=== PATIENT | female | born 1995 | race Caucasian/White ===

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

== ENCOUNTER 2018-01-25 19:52 | Emergency (ER) | payer MEDICAID ==
[~2018-01-25] VITALS: Ht 162.6 cm; Wt 52.2 kg
[~2018-01-25 19:52] MED LIST changes: +ACHD5005 PO; +DOCU100C37 PO; -HYDR-3812 PO; +IBUP-1773 PO
--- OUTSIDE RECORDS SUMMARY | 2018-01-25 19:58 | XMS REPORT ---
Author Author JOSE GARCIA [facility] Address [address] [place] [address] Care Team Providers Care Clean Up Supervisor Name Role Phone JOSE GARCIA Unavailable PROBLEMS Type Condition ICD9-CM Code [id number] Code Onset Dates Condition Status SNOMED Code Problem Generalized anxiety disorder F41.1 Active 485087330 Problem Intermittent explosive disorder F63.81 Active 92960194 Problem Adjustment disorder with disturbance of emotion F43.29 Active 19297033 Problem Affective disorder F39 Active 32038676 Problem Mild intermittent asthma without complication J45.20 Active 792082444 Problem Personality disorder F60.9 Active 17873794 Problem Anxiety disorder, unspecified type F41.9 Active 547296372 ALLERGIES No Information SOCIAL HISTORY Never Assessed PLAN OF CARE VITAL SIGNS MEDICATIONS Unknown Medications RESULTS No Results PROCEDURES No Known procedures IMMUNIZATIONS No Known Immunizations MEDICAL (GENERAL) HISTORY Type Description Date Medical History Anxiety Medical History Asthma Medical History Depression Medical History Bipolar Disorder Surgical History mole removal from back Surgical History cyst removal from face Surgical History 10/2016 Hospitalization History OB monitoring 09/2015 Hospitalization History Child 10/2016
--- OUTSIDE RECORDS SUMMARY | 2018-01-25 19:58 | XMS REPORT ---
Author Author RADHAJOSE WHITE Organization [facility] [place] Address [address] [place] [address] Care Team Providers Care Enrollment Processor Name Role Phone JOSE GARCIA Unavailable PROBLEMS Type Condition ICD9-CM Code [id number] Code Onset Dates Condition Status SNOMED Code Problem Generalized anxiety disorder F41.1 Active 213919051 Problem Intermittent explosive disorder F63.81 Active 69852566 Problem Adjustment disorder with disturbance of emotion F43.29 Active 35565610 Problem Affective disorder F39 Active 33905836 Problem Mild intermittent asthma without complication J45.20 Active 238803260 Problem Personality disorder F60.9 Active 97664887 Problem Anxiety disorder, unspecified type F41.9 Active 843669649 ALLERGIES Unknown Allergies SOCIAL HISTORY No smoking Hx information available PLAN OF CARE Activity Details Follow Up 2 Weeks, 2 Weeks Reason: VITAL SIGNS Height 65.7 in 2016-10-07 Weight 148.0 lbs 2016-10-07 Temperature 97.6 degrees Fahrenheit 2016-10-07 Heart Rate 80 bpm 2016-10-07 Respiratory Rate 18 2016-10-07 BMI 24.106 kg/m2 2016-10-07 Blood pressure systolic 120 mmHg 2016-10-07 Blood pressure diastolic 78 mmHg 2016-10-07 MEDICATIONS Medication Instructions Dosage Frequency Start Date End Date Duration Status 28-0.8 MG Active Acyclovir 200 mg Orally daily prn breakout 1 capsule Active RESULTS Name Result Date Reference Range UA OB DIP (IN HOUSE) 2016-10-07 Glucose negative Protein negative CULTURE, GENITAL 2016-10-07 Genital Culture, Routine Final report Result 1 PROCEDURES Procedure Date Ordered Related Diagnosis Body Site NON-STRESS TEST 2016-10-07 N/A URINE-NO MICRO Oct 07, 2016 Office Visit, Est Pt., Level 3 Oct 07, 2016 LAB NOT BILLED BY [facility] Oct 07, 2016 NON-STRESS TEST Oct 07, 2016 IMMUNIZATIONS No Known Immunizations
--- OUTSIDE RECORDS SUMMARY | 2018-01-25 19:58 | XMS REPORT ---
Author Author JOY OCONNOR Organization [employer] Address Unknown Phone Unavailable Care Team Providers Care Division Manager Name Role Phone JOY OCONNOR CP Unavailable Allergies No Known Allergies Problems Problem Type Condition ICD-9 Code Onset Dates Condition Status Problem Anxiety state, unspecified 300.00 Active Problem Generalized anxiety disorder 300.02 Active Problem Encounter for surveillance of injectable contraceptive V25.49 Active Problem Adjustment disorder with depressed mood 309.0 Active Assessment Encounter for Depo-Provera contraception V25.49 Active Problem Bipolar disorder, unspecified 296.80 Active Problem Bipolar I disorder, most recent episode (or current) mixed, moderate 296.62 Active Medications No Known Medications Procedures Procedure Coding System Code Date DEPO PROVERA (150 MG/ML) CPT-4 J1050 May 15, 2015 THER/PROPH/DIAG INJ, SC/IM CPT-4 05041 May 15, 2015 URINE TEST CPT-4 06005 May 15, 2015 Results Name Result Date Reference Range Unit Abnormality Flag TEST, URINE (IN HOUSE) Summary Purpose eClinicalWorks Submission
--- OUTSIDE RECORDS SUMMARY | 2018-01-25 19:58 | XMS REPORT ---
Author Author NUVIA OSORIO Organization [employer] Address Unknown Phone Unavailable Care Team Providers Care Shaping Machine Operator Name Role Phone NUVIA OSORIO CP Unavailable Allergies No Known Allergies Problems Problem Type Condition Code Onset Dates Condition Status Problem Generalized anxiety disorder F41.1 Active Problem Bipolar disorder, unspecified F31.9 Active Problem Anxiety state, unspecified F41.1 Active Problem Surveillance of contraceptive injection Z30.42 Active Problem Bipolar mixed affective disorder, moderate F31.62 Active Problem Adjustment disorder with depressed mood F43.21 Active Medications Medication Code System Code Instructions Start Date End Date Status Dosage Alprazolam [facility] [id number] 0.5 MG TAKE ONE TABLET BY MOUTH TWICE DAILY NEEDED Results No Known Results Summary Purpose eClinicalWorks Submission
--- OUTSIDE RECORDS SUMMARY | 2018-01-25 19:58 | XMS REPORT ---
Author Author VICKI PANIAGUA Organization [facility] Address [address] [place] [address] Care Team Providers Care Data Entry Coordinator Name Role Phone VICKI PANIAGUA Unavailable PROBLEMS Type Condition ICD9-CM Code [id number] Code Onset Dates Condition Status SNOMED Code Problem Generalized anxiety disorder F41.1 Active 601897658 Problem Intermittent explosive disorder F63.81 Active 34763739 Problem Adjustment disorder with disturbance of emotion F43.29 Active 74938243 Problem Affective disorder F39 Active 69999962 Problem Mild intermittent asthma without complication J45.20 Active 572026332 Problem Personality disorder F60.9 Active 22139383 Problem Anxiety disorder, unspecified type F41.9 Active 527665779 ALLERGIES No Information SOCIAL HISTORY Never Assessed PLAN OF CARE Activity Details Follow Up 1 Week Reason:depression and anxiety VITAL SIGNS MEDICATIONS Unknown Medications RESULTS No Results PROCEDURES Procedure Date Ordered Result Body Site Psychotherapy, patient &/family, 45 minutes, established patient February 24, 2017 IMMUNIZATIONS No Known Immunizations MEDICAL (GENERAL) HISTORY Type Description Date Medical History Anxiety Medical History Asthma Medical History Depression Medical History Bipolar Disorder Surgical History mole removal from back Surgical History cyst removal from face Surgical History 10/2016 Hospitalization History OB monitoring 09/2015 Hospitalization History Child 10/2016
--- OUTSIDE RECORDS SUMMARY | 2018-01-25 19:58 | XMS REPORT ---
Author Author CINDY LEVIN Organization [employer] Address Unknown Phone Unavailable Care Team Providers Care Medical Technologist Name Role Phone CINDY LEVIN CP Unavailable Allergies, Adverse Reactions, Alerts Substance Reaction Event Type N.K.D.A. Info Not Available Non Drug Allergy Problems Problem Type Condition Code Onset Dates Condition Status Problem Generalized anxiety disorder F41.1 Active Problem Bipolar disorder, unspecified F31.9 Active Problem Anxiety state, unspecified F41.1 Active Problem Surveillance of contraceptive injection Z30.42 Active Assessment Pelvic lymphadenopathy R59.0 Active Problem Bipolar mixed affective disorder, moderate F31.62 Active Problem Adjustment disorder with depressed mood F43.21 Active Medications Medication Code System Code Instructions Start Date End Date Status Dosage Albuterol Sulfate [facility] [address]-45 90 mcg/actuation Jun 29, 2013 inhale 2 puffs by inhalation route every 6 hours PRN cough or wheezing Doxycycline Hyclate [facility] [address]-31 100 MG Orally every 12 hrs January 21, 2016 January 28, 2016 1 capsule Sprintec 28 [facility] [address]-48 0.25-35 MG-MCG Orally Once a day Oct 02, 2015 1 tablet Procedures Procedure Coding System Code Date Office Visit, Est Pt., Level 3 CPT-4 66671 January 21, 2016 URINE TEST CPT-4 16604 January 21, 2016 Vital Signs Date/Time: January 21, 2016 Temperature 96.8 F Weight 130.0 lbs Height 65.7 in BMI 21.17 Index Blood Pressure Diastolic 62 mmHg Blood Pressure Systolic 102 mmHg Cardiac Monitoring Heart Rate 64 bpm BMIPercentile 48.14 % Wt Percentile 60.65 % Results Name Result Date Reference Range Unit Abnormality Flag TEST, URINE (IN HOUSE) ----RESULTS NEGATIVE [id number] ----Lot # [id number] ----Control + [id number] ----Exp date 20160121 Summary Purpose eClinicalWorks Submission
--- OUTSIDE RECORDS SUMMARY | 2018-01-25 19:58 | XMS REPORT ---
Author Author JOSE GARCIA [employer] Address Unknown Phone Unavailable Care Team Providers Care Desizing Pad Operator Name Role Phone JOSE GARCIA CP Unavailable Allergies, Adverse Reactions, Alerts Substance Reaction Event Type N.K.D.A. 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 Problem Mild intermittent asthma without complication J45.20 Active Problem Second trimester bleeding O46.92 Active Problem Bipolar mixed affective disorder, moderate F31.62 Active Assessment care in second trimester Z34.92 Active Problem First trimester bleeding O20.9 Active Problem Generalized anxiety disorder F41.1 Active Medications Medication Code System Code Instructions Start Date End Date Status Dosage Albuterol Sulfate [facility] [address]-67 90 mcg/actuation Jun 29, 2013 inhale 2 puffs by inhalation route every 6 hours PRN cough or wheezing [facility] [address]286 28-0.8 MG Orally not defined Procedures Procedure Coding System Code Date Office Visit, Est Pt., Level 2 CPT-4 88917 Jul 01, 2016 URINE-NO MICRO CPT-4 09081 Jul 01, 2016 Vital Signs Date/Time: Jul 01, 2016 Cardiac Monitoring Heart Rate 82 bpm Weight 122.7 lbs Height 65.7 in Wt Percentile 44.79 % BMI 19.986 Index Blood Pressure Diastolic 62 mmHg Blood Pressure Systolic 96 mmHg BMIPercentile 30.23 % Results Name Result Date Reference Range Unit Abnormality Flag UA OB DIP (IN HOUSE) ----Glucose Negative [id number] ----Protein Negative [id number] Summary Purpose eClinicalWorks Submission
--- OUTSIDE RECORDS SUMMARY | 2018-01-25 19:59 | XMS REPORT ---
Author Author VICKI PANIAGUA Organization [employer] Address Unknown Phone Unavailable Care Team Providers Care Medical Practice Manager Name Role Phone VICKI PANIAGUA CP Unavailable Allergies No Known Allergies Problems Problem Type Condition Code Onset Dates Condition Status Problem Second trimester bleeding O46.92 Active Problem Mild intermittent asthma without complication J45.20 Active Problem Affective disorder F39 Active Assessment Affective disorder F39 Active Assessment Generalized anxiety disorder F41.1 Active Problem First trimester bleeding O20.9 Active Problem Generalized anxiety disorder F41.1 Active Medications No Known Medications Procedures Procedure Coding System Code Date Psychotherapy, patient &/family, 45 minutes, established patient CPT-4 28493 Jul 07, 2016 Results No Known Results Summary Purpose eClinicalWorks Submission
--- OUTSIDE RECORDS SUMMARY | 2018-01-25 19:59 | XMS REPORT ---
Author Author VELVET FALCON [employer] Address Unknown Phone Unavailable Care Team Providers Care Chef De Froid Name Role Phone VELVET FALCON CP Unavailable Allergies, Adverse Reactions, Alerts Substance Reaction Event Type N.K.D.A. Info Not Available Non Drug Allergy Problems Problem Type Condition Code Onset Dates Condition Status Assessment OCP (oral contraceptive pills) initiation Z30.011 Active Assessment Irregular menses N92.6 Active Problem Generalized anxiety disorder F41.1 Active Problem Bipolar disorder, unspecified F31.9 Active Problem Anxiety state, unspecified F41.1 Active Problem Surveillance of contraceptive injection Z30.42 Active Assessment Encounter for counseling regarding contraception Z30.9 Active Problem Bipolar mixed affective disorder, moderate F31.62 Active Problem Adjustment disorder with depressed mood F43.21 Active Medications Medication Code System Code Instructions Start Date End Date Status Dosage Sprintec 28 [facility] [address]-33 0.25-35 MG-MCG Orally Once a day Oct 02, 2015 1 tablet Xanax [facility] [address]-66 0.5 MG Orally 2 times a day PRN Lisa to sign for Man December 12, 2014 1 tablet Albuterol Sulfate [facility] [address]-57 90 mcg/actuation Jun 29, 2013 inhale 2 puffs by inhalation route every 6 hours PRN cough or wheezing Citalopram Hydrobromide [facility] [address]-32 40 MG Orally Once a day February 07, 2015 1 tablet Procedures Procedure Coding System Code Date Office Visit, Est Pt., Level 3 CPT-4 52281 Oct 02, 2015 URINE TEST CPT-4 45991 Oct 02, 2015 Vital Signs Date/Time: Oct 02, 2015 Temperature 98 F BMIPercentile 40.83 % Weight 126 lbs Height 65.7 in BMI 20.52 Index Blood Pressure Diastolic 68 mmHg Blood Pressure Systolic 106 mmHg Cardiac Monitoring Heart Rate 84 bpm Wt Percentile 54.91 % Ht Percentile 72.06 % Results Name Result Date Reference Range Unit Abnormality Flag TEST, URINE (IN HOUSE) ----RESULTS negative [id number] ----Lot # [id number] ----Control + 20151002 ----Exp date 20151002 Summary Purpose eClinicalWorks Submission
--- OUTSIDE RECORDS SUMMARY | 2018-01-25 19:59 | XMS REPORT ---
Author Author RADHAJOSE Organization [facility] Address [address] [place] [address] Care Team Providers Care Delivery Motorcycle Driver Name Role Phone JOSE GARCIA Unavailable PROBLEMS Type Condition ICD9-CM Code [id number] Code Onset Dates Condition Status SNOMED Code Problem Generalized anxiety disorder F41.1 Active 818245257 Problem Intermittent explosive disorder F63.81 Active 24343924 Problem Adjustment disorder with disturbance of emotion F43.29 Active 25389199 Problem Affective disorder F39 Active 55544611 Problem Mild intermittent asthma without complication J45.20 Active 212952132 Problem Personality disorder F60.9 Active 12719738 Problem Anxiety disorder, unspecified type F41.9 Active 750709748 ALLERGIES Substance Reaction Event Type Date Status N.K.D.A. Unknown Non Drug Allergy Sep, Unknown SOCIAL HISTORY No smoking Hx information available PLAN OF CARE Activity Details Follow Up 1 Week, 1 Week Reason: VITAL SIGNS Height 65.7 in 2016-10-21 Weight 146.5 lbs 2016-10-21 Temperature 97.4 degrees Fahrenheit 2016-10-21 Heart Rate 74 bpm 2016-10-21 Respiratory Rate 20 2016-10-21 BMI 23.862 kg/m2 2016-10-21 Blood pressure systolic 116 mmHg 2016-10-21 Blood pressure diastolic 74 mmHg 2016-10-21 MEDICATIONS Medication Instructions Dosage Frequency Start Date End Date Duration Status Albuterol Sulfate 90 mcg/actuation inhale 2 puffs by inhalation route every 6 hours PRN cough or wheezing Jun, Active 28-0.8 MG Active RESULTS Name Result Date Reference Range UA OB DIP (IN HOUSE) 2016-10-21 Glucose negative Protein trace PROCEDURES Procedure Date Ordered Related Diagnosis Body Site URINE-NO MICRO Oct 21, 2016 Office Visit, Est Pt., Level 2 Oct 21, 2016 IMMUNIZATIONS No Known Immunizations
--- OUTSIDE RECORDS SUMMARY | 2018-01-25 19:59 | XMS REPORT ---
Author Author NUVIA OSORIO Organization [employer] Address Unknown Phone Unavailable Care Team Providers Care Wind Up Operator Name Role Phone NUVIA OSORIO CP [...] Instructions Start Date End Date Status Dosage Xanax [facility] [address]-04 0.5 MG Orally 2 times a day PRN December 12, 2014 1 tablet Results No Known Results Summary Purpose eClinicalWorks Submission
--- OUTSIDE RECORDS SUMMARY | 2018-01-25 19:59 | XMS REPORT ---
Author Author MACKENZIE SAGASTUME Organization [employer] Address Unknown Phone Unavailable Care Team Providers Care Tax Accounting Manager Name Role Phone MACKENZIE SAGASTUME CP Unavailable Allergies, Adverse Reactions, Alerts Substance Reaction Event Type N.K.D.A. Info Not Available Non Drug Allergy Problems Problem Type Condition Code Onset Dates Condition Status Assessment Positive test Z32.01 Active Problem Generalized anxiety disorder F41.1 Active Problem Bipolar disorder, unspecified F31.9 Active Problem Anxiety state, unspecified F41.1 Active Problem Surveillance of contraceptive injection Z30.42 Active Assessment Vaginal lesion N89.8 Active Problem Bipolar mixed affective disorder, moderate F31.62 Active Problem Adjustment disorder with depressed mood F43.21 Active Medications Medication Code System Code Instructions Start Date End Date Status Dosage Acyclovir [facility] [address]-16 400 MG Orally 3 times a day March 31, 2016 1 tablet Albuterol Sulfate [facility] [address]-34 90 mcg/actuation Jun 29, 2013 inhale 2 puffs by inhalation route every 6 hours PRN cough or wheezing Procedures Procedure Coding System Code Date URINE TEST CPT-4 81296 March 31, 2016 Office Visit, Est Pt., Level 3 CPT-4 39163 March 31, 2016 LAB NOT BILLED BY [facility] CPT-4 NOBLL March 31, 2016 Vital Signs Date/Time: March 31, 2016 Cardiac Monitoring Heart Rate 70 bpm Weight 123.0 lbs Height 65.7 in BMIPercentile 31.83 % Wt Percentile 46.62 % Blood Pressure Diastolic 70 mmHg Blood Pressure Systolic 110 mmHg Results No Known Results Summary Purpose eClinicalWorks Submission
--- OUTSIDE RECORDS SUMMARY | 2018-01-25 19:59 | XMS REPORT ---
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
--- OUTSIDE RECORDS SUMMARY | 2018-01-25 19:59 | XMS REPORT ---
Author Author REGINO RODRIGUEZ [facility] Address [address] [address] Phone Unavailable Care Team Providers Care Animal Geneticist Name Role Phone REGINO RODRIGUEZ Unavailable Unavailable PROBLEMS Type Condition ICD9-CM Code OYZ39-RO Code Onset Dates Condition Status SNOMED Code Problem Generalized anxiety disorder F41.1 Active 101989901 Problem Adjustment disorder with disturbance of emotion F43.29 Active 41765747 Problem Intermittent explosive disorder F63.81 Active 49310306 Problem Affective disorder F39 Active 28720502 Problem Mild intermittent asthma without complication J45.20 Active 416602753 Problem Anxiety disorder, unspecified type F41.9 Active 864544565 Problem Personality disorder F60.9 Active 70763228 ALLERGIES Substance Reaction Event Type Date Status N.K.D.A. Unknown Non Drug Allergy Aug, Unknown SOCIAL HISTORY No smoking Hx information available PLAN OF CARE Activity Details Follow Up guru Reason:hong VITAL SIGNS MEDICATIONS Medication Instructions Dosage Frequency Start Date End Date Duration Status Vol-Care Rx 1 MG Orally Once a day 1 tablet 24h Jul, 30 day(s) Active Albuterol Sulfate 90 mcg/actuation inhale 2 puffs by inhalation route every 6 hours PRN cough or wheezing Jun, Active RESULTS No Results PROCEDURES Procedure Date Ordered Related Diagnosis Body Site PROPHYLAXIS - ADULT Sep 08, 2016 TOPICAL FLUORIDE VARNISH Sep 08, 2016 IMMUNIZATIONS No Known Immunizations
--- OUTSIDE RECORDS SUMMARY | 2018-01-25 19:59 | XMS REPORT ---
Author Author JOSE GARCIA [facility] Address [address] [place] [address] Care Team Providers Care Grip Name Role Phone JOSE GARCIA Unavailable PROBLEMS Type Condition ICD9-CM Code [id number] Code Onset Dates Condition Status SNOMED Code Problem Mild intermittent asthma without complication J45.20 Active 915021100 Problem First trimester bleeding O20.9 Active 43616675 Problem Generalized anxiety disorder F41.1 Active 176097517 ALLERGIES Unknown Allergies SOCIAL HISTORY No smoking Hx information available PLAN OF CARE VITAL SIGNS MEDICATIONS Unknown Medications RESULTS No Results PROCEDURES No Known procedures IMMUNIZATIONS No Known Immunizations
--- OUTSIDE RECORDS SUMMARY | 2018-01-25 19:59 | XMS REPORT ---
Author Author JOSE GARCIA [facility] e[employer] Address Unknown Phone Unavailable Care Team Providers Care Communications Electrician Supervisor Name Role Phone JOSE GARCIA Unavailable Allergies No Known Allergies Problems Problem Type Condition Code Onset Dates Condition Status Assessment 21 weeks gestation of Z3A.21 Active Problem Second trimester bleeding O46.92 Active Problem Mild intermittent asthma without complication J45.20 Active Problem Affective disorder F39 Active Assessment care in second trimester Z34.92 Active Assessment Second trimester bleeding O46.92 Active Problem First trimester bleeding O20.9 Active Problem Generalized anxiety disorder F41.1 Active Medications Medication Code System Code Instructions Start Date End Date Status Dosage [facility] [address]53 28-0.8 MG Orally not defined Albuterol Sulfate [facility] [address]-81 90 mcg/actuation Jun 29, 2013 inhale 2 puffs by inhalation route every 6 hours PRN cough or wheezing Procedures Procedure Coding System Code Date No Charge CPT-4 45567 Jul 15, 2016 [facility] CPT-4 NOBLL Jul 15, 2016 URINE-NO MICRO CPT-4 39717 Jul 15, 2016 Office Visit, Est Pt., Level 2 CPT-4 86740 Jul 15, 2016 LEA VAG, DNA, DIR PROBE CPT-4 94795 Jul 15, 2016 Vital Signs Date/Time: Jul 15, 2016 Blood Pressure Systolic 108 mmHg Weight 129.7 lbs Height 65.7 in BMIPercentile 45.63 % Wt Percentile 57.85 % BMI 21.12 Index Blood Pressure Diastolic 68 mmHg Results No Known Results Summary Purpose eClinicalWorks Submission
--- OUTSIDE RECORDS SUMMARY | 2018-01-25 19:59 | XMS REPORT ---
Author Author JOSE GARCIA [employer] Address Unknown Phone Unavailable Care Team Providers Care Roofing Laborer Name Role Phone JOSE GARCIA Unavailable Allergies [...] Date End Date Status Dosage Sprintec 28 [facility] [address]-03 0.25-35 MG-MCG Orally Once a day Oct 05, 2015 1 tablet Results No Known Results Summary Purpose eClinicalWorks Submission
--- OUTSIDE RECORDS SUMMARY | 2018-01-25 19:59 | XMS REPORT ---
Author Author VELVET FALCON [employer] Address Unknown Phone Unavailable Care Team Providers Care Reproductive Healthcare Assistant Name Role Phone VELVET FALCON CP Unavailable Allergies, Adverse Reactions, Alerts Substance Reaction Event Type N.K.D.A. Info Not Available Non Drug Allergy Problems Problem Type Condition Code Onset Dates Condition Status Assessment examination or test, unconfirmed Z32.00 Active Assessment Unprotected sexual intercourse Z72.51 Active Assessment Routine screening for STI (sexually transmitted infection) Z11.3 Active Problem Generalized anxiety disorder F41.1 Active [...] Date Status Dosage Albuterol Sulfate [facility] [address]-79 90 mcg/actuation Jun 29, 2013 inhale 2 puffs by inhalation route every 6 hours PRN cough or wheezing Trileptal [facility] [address]-30 300 MG Orally twice a day April 18, 2015 1 tablet Xanax [facility] [address]-96 0.5 MG Orally 2 times a day PRN Lisa to sign for Man December 12, 2014 1 tablet Citalopram Hydrobromide [facility] [address]-23 40 MG Orally Once a day February 07, 2015 1 tablet Procedures Procedure Coding System Code Date URINE TEST CPT-4 17293 Sep 24, 2015 CHORIONIC GONADOTROPIN TEST CPT-4 95252 Sep 24, 2015 No Charge CPT-4 60982 Sep 24, 2015 Office Visit, Est Pt., Level 3 CPT-4 25351 Sep 24, 2015 ACUTE HEPATITIS PANEL CPT-4 81802 Sep 24, 2015 VENIPUNCT, ROUTINE* CPT-4 37649 Sep 24, 2015 Vital Signs Date/Time: Sep 24, 2015 Temperature 98.7 F BMIPercentile 35.65 % Weight 123.7 lbs Height 65.7 in BMI 20.15 Index Blood Pressure Diastolic 64 mmHg Blood Pressure Systolic 118 mmHg Cardiac Monitoring Heart Rate 80 bpm Wt Percentile 50.45 % Ht Percentile 72.06 % Results Name Result Date Reference Range Unit Abnormality Flag HCG, QUANTITATIVE ----hCG,Beta Subunit,Qnt,Serum <1 [id number] mIU/mL TEST, URINE (IN HOUSE) ----RESULTS negative [id number] ----Lot # [id number] ----Control + [id number] ----Exp date [id number] ROUTINE VENIPUNCTURE Summary Purpose eClinicalWorks Submission
--- OUTSIDE RECORDS SUMMARY | 2018-01-25 19:59 | XMS REPORT ---
Author Author MAURI INIGUEZ [employer] Address Unknown Phone Unavailable Care Team Providers Care Gun Tester Name Role Phone MAURI INIGUEZ CP Unavailable Allergies, Adverse Reactions, Alerts Substance [...] Instructions Start Date End Date Status Dosage [facility] [address] 28-0.8 MG Orally not defined Acyclovir [facility] [address]-57 400 MG Orally 3 times a day March 31, 2016 1 tablet Results No Known Results Summary Purpose eClinicalWorks Submission
--- OUTSIDE RECORDS SUMMARY | 2018-01-25 19:59 | XMS REPORT ---
Author Author JOSE GARCIA [facility] Address [address] [place] [address] Care Team Providers Care Dehorner Name Role Phone JOSE GARCIA Unavailable PROBLEMS Type Condition ICD9-CM Code [id number] Code Onset Dates Condition Status SNOMED Code Problem Mild intermittent asthma without complication J45.20 Active 430475483 Problem First trimester bleeding O20.9 Active 21965816 Problem Generalized anxiety disorder F41.1 Active 823376378 ALLERGIES Unknown Allergies SOCIAL HISTORY No smoking Hx information available PLAN OF CARE VITAL SIGNS MEDICATIONS Unknown Medications RESULTS No Results PROCEDURES No Known procedures IMMUNIZATIONS No Known Immunizations
--- OUTSIDE RECORDS SUMMARY | 2018-01-25 19:59 | XMS REPORT ---
Author Author RADHA JOSE Organization [facility] Address [address] [place] [address] Care Team Providers Care Cupola Tapper Name Role Phone JOSE GARCIA Unavailable PROBLEMS Type Condition ICD9-CM Code [id number] Code Onset Dates Condition Status SNOMED Code Problem Generalized anxiety disorder F41.1 Active 883532583 Problem Intermittent explosive disorder F63.81 Active 21419703 Problem Adjustment disorder with disturbance of emotion F43.29 Active 49284928 Problem Affective disorder F39 Active 52716076 Problem Mild intermittent asthma without complication J45.20 Active 566074102 Problem Personality disorder F60.9 Active 31634310 Problem Anxiety disorder, unspecified type F41.9 Active 881303291 ALLERGIES Unknown Allergies SOCIAL HISTORY No smoking Hx information available PLAN OF CARE Activity Details Follow Up 2 Weeks, 2 Weeks Reason: VITAL SIGNS Height 65.7 in 2016-09-25 Weight 143.0 lbs 2016-09-25 Temperature 98.0 degrees Fahrenheit 2016-09-25 Heart Rate 78 bpm 2016-09-25 Respiratory Rate 18 2016-09-25 BMI 23.292 kg/m2 2016-09-25 Blood pressure systolic 116 mmHg 2016-09-25 Blood pressure diastolic 70 mmHg 2016-09-25 MEDICATIONS Medication Instructions Dosage Frequency Start Date End Date Duration Status Acyclovir 200 mg Orally daily prn breakout 1 capsule Active 28-0.8 MG Active RESULTS Name Result Date Reference Range UA OB DIP (IN HOUSE) 2016-09-25 Glucose Negative Protein Negative PROCEDURES Procedure Date Ordered Related Diagnosis Body Site URINE-NO MICRO Sep 25, 2016 FLUARIX QUAD P-FREE 3 AND UP .50 2015Sep 25, 2016 SINGLE IMMUNIZATION ADMIN Sep 25, 2016 TDAP (BOOSTRIX) Sep 25, 2016 Office Visit, Est Pt., Level 2 Sep 25, 2016 IMMUNIZATION ADMIN, EACH ADD (please include units) Sep 25, 2016 IMMUNIZATIONS Vaccine Route Administration Date Status FLUARIX QUAD P-FREE 3 AND UP .50 2015 IM Intramuscular Sep 25, 2016 Administered TDAP (BOOSTRIX) IM Intramuscular Sep 25, 2016 Administered
--- OUTSIDE RECORDS SUMMARY | 2018-01-25 19:59 | XMS REPORT ---
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
[2018-01-25] MEDS ORDERED: cefTRIAXone 1 GM (ROCEPHIN) VIAL IM ONE (20:00)
[2018-01-25] MEDS ORDERED: LIDOCAINE 1% INJ 50 ML (XYLOCAINE) VIAL IJ ONE (20:00)
--- OUTSIDE RECORDS SUMMARY | 2018-01-25 20:00 | XMS REPORT ---
Author Author MANUEL YIP Organization [facility] Address [address] [place] [address] Care Team Providers Care Gear Technician Name Role Phone PHI MANUEL Unavailable PROBLEMS Type Condition ICD9-CM Code [id number] Code Onset Dates Condition Status SNOMED Code Problem Intermittent explosive disorder F63.81 Active 53635950 Problem Personality disorder F60.9 Active 75251758 Problem Generalized anxiety disorder F41.1 Active 347665040 Problem Affective disorder F39 Active 64589499 Problem Mild intermittent asthma without complication J45.20 Active [id number] ALLERGIES No Information ENCOUNTERS Encounter Location Date Diagnosis [facility] [address] [address]- [address] 11 Dec, 2017 [facility] [address] 14394- 1770 09 Dec, 2017 [facility] [address] 228[address]- 8871 28 Oct, 2017 Encounter for Depo-Provera contraception Z30.42 [facility] [address] 25667- 2283 Oct, [facility] [id number] [place] [address]149 -6451 Sep, Sore throat J02.9 and Acute nasopharyngitis J00 [facility] [address] [address] 13 Sep, 2017 Vaginal candidiasis B37.3 [facility] [id number] [place] [address] 87795- 3589 04 Sep, 2017 Generalized anxiety disorder F41.1 [facility] [address] [place] [address] Aug, [facility] [id number] [place] [address] 63372- 8716 Aug, [facility] [id number] [place] [address] 02310- 4802 Aug, Generalized anxiety disorder F41.1 [facility] [address] 16558- 7479 Aug, Encounter for Depo-Provera contraception Z30.42 [facility] [id number] [place] [address] 69147- 7248 Jul, [facility] [address] 97250- 5960 Jul, Generalized anxiety disorder F41.1 [facility] [address] [address]14[address] Jun, Sore throat J02.9 [facility] [id number] [place] [address] 23370 -0811 30 May, 2017 Sore throat J02.9 and Strep pharyngitis J02.0 [place] [facility] [id number] [place] [address] 74916- 2860 26 May, 2017 Encounter for Depo-Provera contraception Z30.42 [facility] [id number] [place] [address] 53107- 7846 May, [facility] [id number] [place] [address] 98414- 6985 Mar, Affective disorder F39 ; Adjustment disorder with disturbance of emotion F43.29 ; Intermittent explosive disorder F63.81 and Personality disorder F60.9 [facility] [id number] [place] [address] 08311- 4342 Mar, [facility] [id number] [place] [address] 91139- 4505 Mar, [place] [id number] [place] [address] 80292- 6020 Mar, Adjustment disorder with disturbance of emotion F43.29 ; Intermittent explosive disorder F63.81 ; Anxiety disorder, unspecified type F41.9 and Personality disorder F60.9 [facility] [id number] [place] [address] 96938- 4126 Feb, Intermittent explosive disorder F63.81 ; Generalized anxiety disorder F41.1 ; Adjustment disorder with disturbance of emotion F43.29 and Personality disorder F60.9 [facility] [id number] [place] [address] 86849- 5270 Feb, Adjustment disorder with disturbance of emotion F43.29 ; Intermittent explosive disorder F63.81 ; Anxiety disorder, unspecified type F41.9 and Personality disorder F60.9 [facility] [id number] [place] [address] 46317- 6005 06 Feb, 2017 Affective disorder F39 and Generalized anxiety disorder F41.1 [facility] [id number] [place] [address] 26140- 2133 04 Dec, 2016 [id number] [place] [address] 19587- 8722 04 Dec, 2016 Encounter for visit Z39.2 ; control counseling Z30.09 and Encounter for Depo-Provera contraception Z30.42 [place] [id number] [place] [address] 68035- 2237 16 Oct, 2016 [place] [id number] [place] [address] 70057- 2753 16 Oct, 2016 care in third trimester Z34.93 ; CONY (amniotic fluid index) borderline low O28.8 ; Breech presentation, not applicable or unspecified fetus O32.1XX0 ; 37 weeks gestation of Z3A.37 and GBS ( group B Streptococcus carrier), +RV culture, currently O99.820 [place] [id number] [place] [address] 58922- 8532 Oct, Breech presentation, not applicable or unspecified fetus O32.1XX0 and CONY (amniotic fluid index) borderline low O28.8 [facility] [facility] [id number] [place] [address] 83837- 2299 15 Oct, 2016 [place] [facility] [id number] [place] [address] 96425- 1566 13 Oct, 2016 [place] [address] 24173- 9704 07 Oct, 2016 screening for streptococcus B Z36 ; care , first in third trimester Z34.03 ; Fundal height low for dates, third trimester O26.843 and 36 weeks gestation of Z3A.36 [facility] [id number] [place] [address] 71208- 1974 Sep, care in third trimester Z34.93 and 35 weeks gestation of Z3A.35 [facility] [id number] [place] [address] 22207- 4663 Sep, [place] [id number] [place] [address] 47335- 7709 Sep, care, first in third trimester Z34.03 ; care in second trimester Z34.92 ; Other specified related conditions, third trimester O26.893 ; Other specified noninflammatory disorders of vagina N89.8 and 33 weeks gestation of Z3A.33 [facility] [id number] [place] [address] 13125- 8083 Sep, [facility] [id number] [place] [address] 62271- 2501 Sep, Encounter for immunization Z23 ; care in third trimester Z34.93 and 31 weeks gestation of Z3A.31 [place] [address] [place] [address] 08034- 6067 Sep, [facility] [address] [place] [address] [id number] Aug, Dental examination Z01.20 [place] [address] [address] 4608 Aug, [place] [id number] [place] [address] 18641- 5486 Aug, Diabetes mellitus screening Z13.1 ; Screening, iron deficiency anemia Z13.0 ; 28 weeks gestation of Z3A.28 and Fundal height low for dates in third trimester O26.843 [place] [id number] [place] [address] 40473- 5724 Aug, Generalized anxiety disorder F41.1 and Affective disorder F39 [place] [id number] [place] [address] 94407- 9773 Jul, [place] [id number] [place] [address] 83667- 7738 Jul, care in second trimester Z34.92 and 25 weeks gestation of Z3A.25 [place] [id number] [place] [address] 35909- 6618 Jul, [place] [id number] [place] [address] 31473- 9911 Jun, care in second trimester Z34.92 ; Second trimester bleeding O46.92 and 21 weeks gestation of Z3A.21 [address] [place] [address] 59219- 2919 Jun, Affective disorder F39 and Generalized anxiety disorder F41.1 [place] [address] [address]- 9912 Jun, [place] [id number] [place] [address] 44929- 0633 Jun, care in second trimester Z34.92 and 19 weeks gestation of Z3A.19 [address] [place] [address] 94162- 2913 Jun, 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 and Generalized anxiety disorder F41.1 [facility] [address] [place] [address] 99071- 2012 03 Jun, 2016 care in second trimester Z34.92 ; Vaginal bleeding in , second trimester O46.92 and 18 weeks gestation of Z3A.18 [facility] [id number] [place] [address] 69562- 7420 27 May, 2016 care in second trimester Z34.92 and 17 weeks gestation of Z3A.17 [facility] [id number] [place] [address] 50739- 4207 27 May, 2016 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 and Generalized anxiety disorder F41.1 [place] [id number] [place] [address] 19632- 5151 20 May, 2016 [place] [id number] [place] [address] 31599- 2472 May, [facility] [id number] [place] [address] 29593- 4780 Apr, [facility] [id number] [place] [address] 60989- 5293 Apr, First trimester Z33.1 ; Mild intermittent asthma without complication J45.20 and 12 weeks gestation of Z3A.12 [facility] [address] [place] [address] 72800- 3466 Mar, [facility] [address] [place] [address] 54459 -7782 Mar, Vaginal lesion N89.8 and Positive test Z32.01 [facility] [id number] [place] [address] 95360- 1721 Feb, Oral contraceptive pill surveillance Z30.41 [facility] [id number] [place] [address] 83129- 9067 Feb, [facility] [address] 53751- 8132 January, Pelvic lymphadenopathy R59.0 [facility] [address] [place] [address] 48040 -0184 January, Pelvic lymphadenopathy R59.0 [facility] [id number] [place] [address] 97200- 3937 January, [facility] [id number] [place] [address] 30940 -8086 Dec, Dysuria R30.0 ; Acute urinary tract infection N39.0 and Vaginal yeast infection B37.3 [place] [id number] [place] [address] 89530- 3767 Dec, [place] [id number] [place] [address] 47738- 8985 Nov, [place] [id number] [place] [address] 54582- 9444 Nov, [place] [id number] [place] [address] 38274- 3466 Oct, [place] [id number] [place] [address] 63422- 4341 Oct, half-way use of drug Z79.899 ; Bipolar disorder, unspecified F31.9 and Generalized anxiety disorder F41.1 [place] [id number] [place] [address] 78977- 5108 Sep, [place] [id number] [place] [address] 72726- 1491 Sep, Encounter for counseling regarding contraception Z30.9 ; OCP (oral contraceptive pills) initiation Z30.011 and Irregular menses N92.6 [place] [address] [place] [address] 55713- 3848 Sep, Encounter for counseling regarding contraception Z30.9 ; Unprotected sexual intercourse Z72.51 ; Routine screening for STI (sexually transmitted infection) Z11.3 and examination or test, unconfirmed Z32.00 [facility] [id number] [place] [address] 65171- 5119 Jul, Bipolar disorder, unspecified F31.9 and Generalized anxiety disorder F41.1 [facility] [id number] [place] [address] 06343- 9024 Jun, [facility] [id number] [place] [address] 42223- 6064 May, Generalized anxiety disorder 300.02 and Bipolar affective disorder 296.80 [facility] [id number] [place] [address] 65242- 6087 Apr, Encounter for Depo-Provera contraception V25.49 [facility] [id number] [place] [address] 77543- 8968 Mar, Bipolar affective disorder 296.80 and Generalized anxiety disorder 300.02 [facility] [id number] [place] [address] 11074- 8189 Feb, [facility] [id number] [place] [address] 41533- 1923 Feb, Encounter for surveillance of injectable contraceptive V25.49 and Screen for STD (sexually transmitted disease) V74.5 [facility] [id number] [place] [address] 67001- 9632 January, Generalized anxiety disorder 300.02 and Bipolar disorder, unspecified 296.80 [facility] [id number] [place] [address] 92264- 4239 Dec, [facility] [id number] [place] [address] 68066- 2971 Dec, [facility] [id number] [place] [address] 57988- 3560 Nov, [facility] [id number] [place] [address] 40077- 6533 Nov, [facility] [address] 04078- 2546 Nov, 2014 [facility] [place] [facility] [address] [id number] [place] [address]- 5880 Nov, 2014 [facility] [place] [facility] [address] [id number] [place] [address]- 8496 Nov, 2014 [facility] [place] [facility] [address] [id number] [place] [address]- 5337 Nov, 2014 [facility] [place] [facility] [address] [id number] [place] [address]- 5852 Nov, 2014 [facility] [place] [facility] [address] [id number] [place] [address]- 1177 Nov, 2014 [facility] [place] [facility] [address] [id number] [place] [address]- 5411 Oct, [facility] [place] [facility] [address] [id number] [place] [address]- 8041 Oct, 2014 [facility] [place] [facility] [address] [id number] [place] [address]- 5866 Aug, [facility] [place] [facility] [address] [id number] [place] [address]- 1889 Aug, [facility] [place] [facility] [address] [id number] [place] [address]- 5564 Aug, [facility] [place] [facility] [address] [id number] [place] [address]- 5553 Aug, [facility] [place] [facility] [address] [id number] [place] [address]- 9530 Aug, [facility] [place] [facility] [address] [id number] [place] [address]- 0869 Aug, [facility] [place] [facility] [address] [id number] [place] [address]- 1288 Aug, [facility] [place] [facility] [address] [id number] [place] 1403 Aug, [facility] [place] [facility] [address] [id number] [place] [address]- 4930 Jul, [facility] [place] [facility] [address] [id number] [place] [address]- 1010 Jul, [facility] [place] [facility] [address] [id number] [place] [address]- 6951 Jul, [facility] [place] [facility] [address] [id number] [place] [address]- 6426 Jul, [facility] [place] [facility] [address] [id number] [place] [address]- 1013 Jun, [facility] [place] [facility] [address] [id number] [place] [address]- 3543 Jun, [facility] [place] [facility] [address] [id number] [place] [address]- 7707 Jun, [facility] [place] [facility] [address] [id number] [place] [address]- 6596 Jun, [facility] [place] [facility] [address] [id number] [place] [address]- 2855 Jun, [facility] [place] [facility] [address] [id number] [place] [address]- 4275 Jun, [facility] [place] [facility] [address] [id number] [place] [address]- 5882 16 May, 2013 [facility] [place] [facility] [address] [id number] [place] [address]- 5916 16 May, 2013 [facility] [place] [facility] [address] [id number] [place] [address]- 2105 05 Sep, 2013 [facility] [place] [facility] [address] [id number] [place] [address]- 6203 05 Sep, 2013 [facility] [place] [facility] [address] [id number] [place] [address]- 7966 04 Sep, 2013 [facility] [place] [facility] [address] [id number] [place] [address]- 2731 May, [facility] [place] [facility] [address] [id number] [place] [address]- 2648 Apr, [facility] [place] [facility] [address] [id number] [place] [address]- 3567 Apr, [facility] [place] [facility] [address] [id number] [place] [address]- 2071 Mar, [facility] [place] [facility] [address] [id number] [place] [address]- 1873 Mar, [facility] [place] [facility] [address] [id number] [place] [address]- 3990 Feb, [facility] [place] [facility] [address] [id number] [place] [address]- 0164 Feb, [facility] [place] [facility] [address] [id number] [place] [address]- 5683 Feb, [facility] [place] [facility] [address] [id number] [place] [address]- 4086 Feb, [facility] [place] [facility] [address] [id number] [place] [address]- 7828 Feb, [facility] [place] [facility] [address] [id number] [place] [address]- 8429 Feb, [facility] [place] [facility] [address] [id number] [place] [address]- 7656 Dec, [facility] [place] [facility] [address] [id number], [place] [address]- 5661 Dec, [facility] [place] [facility] [address] [id number] [place] [address]- 3911 Dec, [facility] [place] [facility] [address] [id number] [place] [address]- 1809 Dec, [facility] [place] [facility] [address] [id number] [place] [address]- 1716 Nov, [facility] [place] [facility] [address] [id number] [place] [address]- 9582 Nov, [facility] [place] [facility] [address] [id number] [place] [address]- 1822 Nov, [facility] [place] [facility] [address] [id number] [place] [address]- 6972 Nov, [facility] [place] [facility] [address] [id number] [place] [address]- 8119 Nov, [facility] [place] [facility] [address] [id number] [place] [address]- 1743 Oct, [facility] [place] [facility] [address] [id number] [place] [address]- 5788 Oct, [facility] [place] [facility] [address] [id number] [place] [address]- 2001 Oct, [facility] [place] [facility] [address] [id number] [place] [address]- 8848 Sep, [facility] [place] [facility] [address] [id number] [place] [address]- 1317 Sep, [facility] [place] [facility] [address] [id number] [place] [address]- 7246 Sep, [facility] [place] [facility] [address] [id number] [place] [address]- 4284 Sep, [facility] [place] [facility] [address] [id number] [place] [address]- 1499 Sep, [facility] [place] [facility] [address] [id number] [place] [address]- 5386 Sep, [facility] [place] [facility] [address] [id number] [place] [address]- 5403 Aug, [facility] [place] [facility] [address] [id number] [place] [address]- 8105 Aug, [facility] [place] [facility] [address] [id number] [place] [address]- 8502 14 Jul, 2013 [facility] [place] [facility] [address] [id number] [place] [address]- 8492 14 Jul, 2013 [facility] [place] [facility] [address] [id number] [place] [address]- 0920 Jun, [facility] [place] [facility] [address] [id number] [place] [address]- 0541 Jun, [facility] [place] [facility] [address] [id number] [place] [address]- 4106 Jun, [facility] [address] [id number] [place] [address]- 4307 Jun, [facility] [place] [facility] [address] [id number] [place] [address]- 9640 26 May, 2013 [facility] [address] [id number] [place] [address]- 4695 26 May, 2013 [facility] [address] [id number] [place] [address]- 4407 25 May, 2013 [facility] [address] [id number] [place] [address]- 8211 24 May, 2013 [facility] [place] [facility] [address] [id number] [place] [address]- 0012 19 May, 2013 [facility] [place] [facility] [address] [id number] [place] [address]- 4176 13 May, 2013 [facility] [place] [facility] [address] [id number], [place] [address]- 3452 12 May, 2012 [facility] [place] [facility] [address] [id number] [place] [address]- 7033 11 May, 2013 [facility] [place] [facility] [address] [id number] [place] [address]- 2749 09 May, 2013 [facility] [place] [facility] [address] [id number] [place] [address] 29 Mar, 2013 [facility] [place] [facility] [address] [id number], [place] [address] Mar, [facility] [address] [address] Feb, [facility] [id number], [place] [address] January, [facility] [id number], [place] [address] Dec, [facility] [id number], [place] [address] Oct, [facility] [id number] [address] Sep, [facility] [id number] [address] Aug, [facility] [id number] [address] Aug, [facility] [address], [place] [address] Aug, [facility] [address], [place] [address] Aug, [facility] [address], [place] [address] Jun, [facility] [address], [place] [address] May, [facility] [address], [place] [address] May, [facility] [address] [address] May, [facility] [address] [address] May, IMMUNIZATIONS No Known Immunizations SOCIAL HISTORY Never Assessed REASON FOR VISIT f/u PLAN OF CARE Activity Details Follow Up 2 Weeks Reason:Anxiety, stress VITAL SIGNS MEDICATIONS Unknown Medications RESULTS No Results PROCEDURES Procedure Date Ordered Result Body Site Psychotherapy, patient &/family, 30 minutes, established patient March 30, 2017 INSTRUCTIONS MEDICATIONS ADMINISTERED No Known Medications MEDICAL (GENERAL) HISTORY Type Description Date Medical History Anxiety Medical History Asthma Medical History Depression Medical History Bipolar Disorder Surgical History mole removal from back Surgical History cyst removal from face Surgical History 10/2016 Hospitalization History OB monitoring 09/2015 Hospitalization History Child 10/2016
--- OUTSIDE RECORDS SUMMARY | 2018-01-25 20:00 | XMS REPORT ---
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 Name Role Phone PHI MANUEL Unavailable PROBLEMS Type Condition ICD9-CM Code [id number] Code Onset Dates Condition Status SNOMED Code Problem Intermittent explosive disorder F63.81 Active 13228148 Problem Personality disorder F60.9 Active 11144841 Problem Generalized anxiety disorder F41.1 Active 284342848 Problem Affective disorder F39 Active 54862499 Problem Mild intermittent asthma without complication J45.20 Active [id number] ALLERGIES No Information ENCOUNTERS Encounter Location Date Diagnosis [facility] [address] [address] 11 Dec, 2017 [facility] [address] 47682- 5211 09 Dec, 2017 [facility] [address] [address]34- 2535 28 Oct, 2017 Encounter for Depo-Provera contraception Z30.42 [facility] [address] 68757- 1258 Oct, [facility] [id number] [place] [address] 82120 -5715 Sep, Sore throat J02.9 and Acute nasopharyngitis J00 [facility] [address] 17534 -3482 13 Sep, 2017 Vaginal candidiasis B37.3 [facility] [id number] [place] [address] 49672- 9911 04 Sep, 2017 Generalized anxiety disorder F41.1 [facility] [address] [place] [address] Aug, [facility] [id number] [place] [address] 61430- 1790 Aug, [facility] [id number] [place] [address] 82111- 6510 Aug, Generalized anxiety disorder F41.1 [facility] [address] 98667- 1577 Aug, Encounter for Depo-Provera contraception Z30.42 [facility] [id number] [place] [address] 86530- 3587 Jul, [facility] [address] 71516- 7375 Jul, Generalized anxiety disorder F41.1 [facility] [address] 06695 -1031 Jun, Sore throat J02.9 [facility] [id number] [place] [address] 29754 -0612 30 May, 2017 Sore throat J02.9 and Strep pharyngitis J02.0 [facility] [id number] [place] [address] 49969- 5721 26 May, 2017 Encounter for Depo-Provera contraception Z30.42 [facility] [id number] [place] [address] 86410- 9533 May, [facility] [id number] [place] [address] 58815- 3174 Mar, Affective disorder F39 ; Adjustment disorder with disturbance of emotion F43.29 ; Intermittent explosive disorder F63.81 and Personality disorder F60.9 [facility] [id number] [place] [address] 61508- 7442 Mar, [facility] [id number] [place] [address] 68606- 5704 Mar, [facility] [id number] [place] [address] 94314- 6770 Mar, Adjustment disorder with disturbance of emotion F43.29 ; Intermittent explosive disorder F63.81 ; Anxiety disorder, unspecified type F41.9 and Personality disorder F60.9 [facility] [id number] [place] [address] 05513- 6038 Feb, Intermittent explosive disorder F63.81 ; Generalized anxiety disorder F41.1 ; Adjustment disorder with disturbance of emotion F43.29 and Personality disorder F60.9 [facility] [id number] [place] [address] 45873- 1649 Feb, Adjustment disorder with disturbance of emotion F43.29 ; Intermittent explosive disorder F63.81 ; Anxiety disorder, unspecified type F41.9 and Personality disorder F60.9 [facility] [id number] [place] [address] 61848- 1541 06 Feb, 2017 Affective disorder F39 and Generalized anxiety disorder F41.1 [facility] [id number] [place] [address] 60253- 8553 04 Dec, 2016 [place] [id number] [place] [address] 49705- 5099 04 Dec, 2016 Encounter for visit Z39.2 ; control counseling Z30.09 and Encounter for Depo-Provera contraception Z30.42 [place] [id number] [place] [address] 58759- 7112 16 Oct, 2016 [address] [id number] [place] [address] 27234- 6739 16 Oct, 2016 care in third trimester Z34.93 ; CONY (amniotic fluid index) borderline low O28.8 ; Breech presentation, not applicable or unspecified fetus O32.1XX0 ; 37 weeks gestation of Z3A.37 and GBS ( group B Streptococcus carrier), +RV culture, currently O99.820 [place] [id number] [place] [address] 51907- 2596 Oct, Breech presentation, not applicable or unspecified fetus O32.1XX0 and CONY (amniotic fluid index) borderline low O28.8 [facility] [id number] [place] [address] 90015- 4631 15 Oct, 2016 [place] [id number] [place] [address] 71162- 7831 13 Oct, 2016 [place] [facility] [address] 22181- 5700 07 Oct, 2016 screening for streptococcus B Z36 ; care , first in third trimester Z34.03 ; Fundal height low for dates, third trimester O26.843 and 36 weeks gestation of Z3A.36 [facility] [id number] [place] [address] 38843- 5128 Sep, care in third trimester Z34.93 and 35 weeks gestation of Z3A.35 [facility] [id number] [place] [address] 08582- 3088 Sep, [facility] [id number] [place] [address] 90954- 0594 Sep, care, first in third trimester Z34.03 ; care in second trimester Z34.92 ; Other specified related conditions, third trimester O26.893 ; Other specified noninflammatory disorders of vagina N89.8 and 33 weeks gestation of Z3A.33 [facility] [id number] [place] [address] 77529- 4269 Sep, [facility] [id number] [place] [address] 73385- 8846 Sep, Encounter for immunization Z23 ; care in third trimester Z34.93 and 31 weeks gestation of Z3A.31 [facility] [id number] [place] [address] 71421- 9286 Sep, [facility] [address] [place] [address] [id number] Aug, Dental examination Z01.20 [place] [facility] [address] [address]- 9014 Aug, [facility] [id number] [place] [address] 70374- 2732 Aug, Diabetes mellitus screening Z13.1 ; Screening, iron deficiency anemia Z13.0 ; 28 weeks gestation of Z3A.28 and Fundal height low for dates in third trimester O26.843 [facility] [id number] [place] [address] 51535- 4135 Aug, Generalized anxiety disorder F41.1 and Affective disorder F39 [facility] [id number] [place] [address] 90616- 6955 Jul, [facility] [id number] [place] [address] 51805- 1760 Jul, care in second trimester Z34.92 and 25 weeks gestation of Z3A.25 [facility] [id number] [place] [address] 87189- 0214 Jul, [place] [id number] [place] [address] 19587- 9501 Jun, care in second trimester Z34.92 ; Second trimester bleeding O46.92 and 21 weeks gestation of Z3A.[address] [place] [address] 93613- 5564 Jun, Affective disorder F39 and Generalized anxiety disorder F41.1 [place] [facility] [address] [address]- 4774 Jun, [place] [id number] [place] [address] 47080- 7573 Jun, care in second trimester Z34.92 and 19 weeks gestation of Z3A.[address] [place] [address] 07000- 7331 Jun, 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 and Generalized anxiety disorder F41.1 [facility] [address] [place] [address] 29629- 1591 03 Jun, 2016 care in second trimester Z34.92 ; Vaginal bleeding in , second trimester O46.92 and 18 weeks gestation of Z3A.18 [facility] [id number] [place] [address] 74127- 5706 27 May, 2016 care in second trimester Z34.92 and 17 weeks gestation of Z3A.17 [facility] [id number] [place] [address] 38727- 6182 27 May, 2016 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 and Generalized anxiety disorder F41.1 [place] [id number] [place] [address] 29023- 5527 20 May, 2016 [place] [id number] [place] [address] 19829- 2391 May, [facility] [id number] [place] [address] 78081- 9833 Apr, [facility] [id number] [place] [address] 28514- 8900 Apr, First trimester Z33.1 ; Mild intermittent asthma without complication J45.20 and 12 weeks gestation of Z3A.12 [facility] [address] [place] [address] 81712- 7381 Mar, [facility] [address] [place] [address] 03518 -7687 Mar, Vaginal lesion N89.8 and Positive test Z32.01 [facility] [id number] [place] [address] 53711- 6312 Feb, Oral contraceptive pill surveillance Z30.41 [facility] [id number] [place] [address] 79332- 6220 Feb, [facility] [address] 41400- 2065 January, Pelvic lymphadenopathy R59.0 [facility] [address] [place] [address] 26573 -4431 January, Pelvic lymphadenopathy R59.0 [facility] [id number] [place] [address] 53905- 4124 January, [facility] [id number] [place] [address] 65812 -8616 Dec, Dysuria R30.0 ; Acute urinary tract infection N39.0 and Vaginal yeast infection B37.3 [place] [id number] [place] [address] 76461- 0910 Dec, [place] [id number] [place] [address] 05768- 3002 Nov, [facility] [id number] [place] [address] 52237- 7639 Nov, [place] [facility] [id number] [place] [address] 65765- 6415 Oct, [place] [id number] [place] [address] 83292- 5788 Oct, long-term use of drug Z79.899 ; Bipolar disorder, unspecified F31.9 and Generalized anxiety disorder F41.1 [place] [id number] [place] [address] 33231- 9836 Sep, [place] [id number] [place] [address] 56677- 0468 Sep, Encounter for counseling regarding contraception Z30.9 ; OCP (oral contraceptive pills) initiation Z30.011 and Irregular menses N92.6 [place] [address] [place] [address] 03659- 8561 Sep, Encounter for counseling regarding contraception Z30.9 ; Unprotected sexual intercourse Z72.51 ; Routine screening for STI (sexually transmitted infection) Z11.3 and examination or test, unconfirmed Z32.00 [facility] [id number] [place] [address] 63715- 4766 Jul, Bipolar disorder, unspecified F31.9 and Generalized anxiety disorder F41.1 [facility] [id number] [place] [address] 72817- 9676 Jun, [facility] [id number] [place] [address] 10377- 1045 May, Generalized anxiety disorder 300.02 and Bipolar affective disorder 296.80 [facility] [id number] [place] [address] 10439- 9613 Apr, Encounter for Depo-Provera contraception V25.49 [facility] [id number] [place] [address] 53458- 9346 Mar, Bipolar affective disorder 296.80 and Generalized anxiety disorder 300.02 [facility] [id number] [place] [address] 19842- 8590 Feb, [facility] [id number] [place] [address] 79797- 6383 Feb, Encounter for surveillance of injectable contraceptive V25.49 and Screen for STD (sexually transmitted disease) V74.5 [facility] [id number] [place] [address] 97827- 2393 January, Generalized anxiety disorder 300.02 and Bipolar disorder, unspecified 296.80 [facility] [id number] [place] [address] 34501- 6968 Dec, [facility] [id number] [place] [address] 21212- 6677 Dec, [facility] [id number] [place] [address] 93238- 9910 Nov, [facility] [id number] [place] [address] 71939- 6948 Nov, [facility] [address] 50440- 2546 Nov, 2014 [facility] [place] [facility] [address] [id number] [place] [address]- 7946 Nov, 2014 [facility] [place] [facility] [address] [id number] [place] [address]- 0156 Nov, 2014 [facility] [place] [facility] [address] [id number] [place] [address]- 5005 Nov, 2014 [facility] [place] [facility] [address] [id number] [place] [address]- 5819 Nov, 2014 [facility] [place] [facility] [address] [id number] [place] [address]- 4243 Nov, 2014 [facility] [place] [facility] [address] [id number] [place] [address]- 2654 Oct, [facility] [place] [facility] [address] [id number] [place] [address]- 3473 Oct, 2014 [facility] [place] [facility] [address] [id number] [place] [address]- 1261 Aug, [facility] [place] [facility] [address] [id number] [place] [address]- 2481 Aug, [facility] [place] [facility] [address] [id number] [place] [address]- 7703 Aug, [facility] [place] [facility] [address] [id number] [place] [address]- 7420 Aug, [facility] [place] [facility] [address] [id number] [place] [address]- 6936 Aug, [facility] [place] [facility] [address] [id number] [place] [address]- 0654 Aug, [facility] [place] [facility] [address] [id number] [place] [address]- 2880 Aug, [facility] [place] [facility] [address] [id number] [place] 5859 Aug, [facility] [place] [facility] [address] [id number] [place] [address]- 5169 Jul, [facility] [place] [facility] [address] [id number] [place] [address]- 0474 Jul, [facility] [place] [facility] [address] [id number] [place] [address]- 0864 Jul, [facility] [place] [facility] [address] [id number] [place] [address]- 9281 Jul, [facility] [place] [facility] [address] [id number] [place] [address]- 8424 Jun, [facility] [place] [facility] [address] [id number] [place] [address]- 6028 Jun, [facility] [place] [facility] [address] [id number] [place] [address]- 3104 Jun, [facility] [place] [facility] [address] [id number] [place] [address]- 7006 Jun, [facility] [place] [facility] [address] [id number] [place] [address]- 1918 Jun, [facility] [place] [facility] [address] [id number] [place] [address]- 2925 Jun, [facility] [place] [facility] [address] [id number] [place] [address]- 8018 16 May, 2013 [facility] [place] [facility] [address] [id number] [place] [address]- 5181 16 May, 2013 [facility] [place] [facility] [address] [id number] [place] [address]- 4565 05 Sep, 2013 [facility] [place] [facility] [address] [id number] [place] [address]- 5284 05 Sep, 2013 [facility] [place] [facility] [address] [id number] [place] [address]- 1485 04 Sep, 2013 [facility] [place] [facility] [address] [id number] [place] [address]- 5027 May, [facility] [place] [facility] [address] [id number] [place] [address]- 4086 Apr, [facility] [place] [facility] [address] [id number] [place] [address]- 4172 Apr, [facility] [place] [facility] [address] [id number] [place] [address]- 7871 Mar, [facility] [place] [facility] [address] [id number] [place] [address]- 7735 Mar, [facility] [place] [facility] [address] [id number] [place] [address]- 0838 Feb, [facility] [place] [facility] [address] [id number] [place] [address]- 6667 Feb, [facility] [place] [facility] [address] [id number] [place] [address]- 9037 Feb, [facility] [place] [facility] [address] [id number] [place] [address]- 2779 Feb, [facility] [place] [facility] [address] [id number] [place] [address]- 6480 Feb, [facility] [place] [facility] [address] [id number] [place] [address]- 1575 Feb, [facility] [place] [facility] [address] [id number] [place] [address]- 6846 Dec, [facility] [place] [facility] [address] [id number] [address]- 5867 Dec, [facility] [place] [facility] [address] [id number] [place] [address]- 7156 Dec, [facility] [place] [facility] [address] [id number] [place] [address]- 7121 Dec, [facility] [place] [facility] [address] [id number] [place] [address]- 7988 Nov, [facility] [place] [facility] [address] [id number] [place] [address]- 1840 Nov, [facility] [place] [facility] [address] [id number] [place] [address]- 9937 Nov, [facility] [place] [facility] [address] [id number] [place] [address]- 5134 Nov, [facility] [place] [facility] [address] [id number] [place] [address]- 9856 Nov, [facility] [place] [facility] [address] [id number] [place] [address]- 3183 Oct, [facility] [place] [facility] [address] [id number] [place] [address]- 1108 Oct, [facility] [place] [facility] [address] [id number] [place] [address]- 7108 Oct, [facility] [place] [facility] [address] [id number] [place] [address]- 1353 Sep, [facility] [place] [facility] [address] [id number] [place] [address]- 8585 Sep, [facility] [place] [facility] [address] [id number] [place] [address]- 2694 Sep, [facility] [place] [facility] [address] [id number] [place] [address]- 4539 Sep, [facility] [place] [facility] [address] [id number] [place] [address]- 1854 Sep, [facility] [place] [facility] [address] [id number] [place] [address]- 1664 Sep, [facility] [place] [facility] [address] [id number] [place] [address]- 1483 Aug, [facility] [place] [facility] [address] [id number] [place] [address]- 7530 Aug, [facility] [place] [facility] [address] [id number] [place] [address]- 0399 14 Jul, 2013 [facility] [place] [facility] [address] [id number] [place] [address]- 3392 14 Jul, 2013 [facility] [place] [facility] [address] [id number] [place] [address]- 0930 Jun, [facility] [place] [facility] [address] [id number] [place] [address]- 1976 Jun, [facility] [place] [facility] [address] [id number] [place] [address]- 0522 Jun, [facility] [address] [id number] [place] [address]- 7218 Jun, [facility] [place] [facility] [address] [id number] [place] [address]- 3926 26 May, 2013 [facility] [address] [id number] [place] [address]- 6689 26 May, 2013 [facility] [address] [id number] [place] [address]- 3377 25 May, 2013 [facility] [address] [id number] [place] [address]- 5290 24 May, 2013 [facility] [place] [facility] [address] [id number] [place] [address]- 9787 19 May, 2013 [facility] [place] [facility] [address] [id number] [place] [address]- 9717 13 May, 2013 [facility] [place] [facility] [address] [id number] [address]- 6109 12 May, 2012 [facility] [place] [facility] [address] [id number] [place] [address]- 6207 11 May, 2013 [facility] [place] [facility] [address] [id number] [place] [address]- 9958 09 May, 2013 [facility] [place] [facility] [address] [id number] [place] [address]- 4959 29 Mar, 2013 [facility] [place] [facility] [address] [id number] [address]- 0716 Mar, [facility] [address] [address]- 1544 Feb, [facility] [id number] [address] January, [facility] [id number] [id number] Dec, [facility] [id number] [address] Oct, [facility] [id number] [address] Sep, [facility] [id number] [address] Aug, [facility] [address] [address] Aug, [facility] [address] [address] Aug, [facility] [address] [address] Aug, [facility] [address] [address] Jun, [facility] [address] [address] May, [facility] [address] [address] May, [facility] [address] [address] May, [facility] [address] [address] May, IMMUNIZATIONS No Known Immunizations SOCIAL HISTORY Never Assessed REASON FOR VISIT f/u PLAN OF CARE Activity Details Follow Up 1 Week Reason:Anxiety, depression, anger VITAL SIGNS MEDICATIONS Unknown Medications RESULTS No Results PROCEDURES Procedure Date Ordered Result Body Site Psychotherapy, patient &/family, 45 minutes, established patient April 07, 2017 INSTRUCTIONS MEDICATIONS ADMINISTERED No Known Medications MEDICAL (GENERAL) HISTORY Type Description Date Medical History Anxiety Medical History Asthma Medical History Depression Medical History Bipolar Disorder Surgical History mole removal from back Surgical History cyst removal from face Surgical History 10/2016 Hospitalization History OB monitoring 09/2015 Hospitalization History Child 10/2016
--- OUTSIDE RECORDS SUMMARY | 2018-01-25 20:00 | XMS REPORT ---
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 Name Role Phone NUVIA OSORIO CP Unavailable Allergies No Known Allergies Problems Problem Type Condition Code Onset Dates Condition Status Assessment Generalized anxiety disorder F41.1 Active Problem Anxiety state, unspecified 300.00 Active Problem Generalized anxiety disorder 300.02 Active Problem Encounter for surveillance of injectable contraceptive V25.49 Active Problem Adjustment disorder with depressed mood 309.0 Active Assessment Bipolar disorder, unspecified F31.9 Active Problem Bipolar disorder, unspecified 296.80 Active Problem Bipolar I disorder, most recent episode (or current) mixed, moderate 296.62 Active Medications Medication Code System Code Instructions Start Date End Date Status Dosage Trileptal [facility] [address]-32 300 MG Orally twice a day April 18, 2015 1 [place] [address]-01 0.5 MG Orally 2 times a day PRN Lisa to sign for Man December 12, 2014 1 tablet Albuterol Sulfate [facility] [address]-96 90 mcg/actuation Jun 29, 2013 inhale 2 puffs by inhalation route every 6 hours PRN cough or wheezing Depo-Provera Contraceptive NDC 0 150 mg/mL Oct 25, 2012 inject 150 mg by intramuscular route every 3 months Citalopram Hydrobromide [facility] [address]-91 40 MG Orally Once a day February 07, 2015 1 tablet Procedures Procedure Coding System Code Date Office Visit, Est Pt., Level 3 CPT-4 26602 Jul 25, 2015 Vital Signs Date/Time: Jul 25, 2015 Cardiac Monitoring Heart Rate 84 bpm Weight 128.0 lbs Height 65.7 in Ht Percentile 72.22 % BMI 20.85 Index Blood Pressure Diastolic 56 mmHg Blood Pressure Systolic 120 mmHg BMIPercentile 46.11 % Wt Percentile 59.29 % Results No Known Results Summary Purpose [employer] Submission
--- OUTSIDE RECORDS SUMMARY | 2018-01-25 20:01 | XMS REPORT ---
Author Author JOSE GARCIA [facility] Address [address] [place] [address] Care Team Providers Care Striper Spray Gun Name Role Phone JOSE GARCIA Unavailable PROBLEMS Type Condition ICD9-CM Code [id number] Code Onset Dates Condition Status SNOMED Code Problem Generalized anxiety disorder F41.1 Active 812738866 Problem Intermittent explosive disorder F63.81 Active 50035482 Problem Adjustment disorder with disturbance of emotion F43.29 Active 99696414 Problem Affective disorder F39 Active 11261263 Problem Mild intermittent asthma without complication J45.20 Active 925432119 Problem Personality disorder F60.9 Active 24662645 Problem Anxiety disorder, unspecified type F41.9 Active 998597309 ALLERGIES No Information SOCIAL HISTORY Never Assessed [...]
--- OUTSIDE RECORDS SUMMARY | 2018-01-25 20:01 | XMS REPORT ---
Author Author JOSE GARCIA Organization [facility] Address [address] [place] [address] Care Team Providers Care Stenciler Name Role Phone JOSE GARCIA Unavailable PROBLEMS Type Condition ICD9-CM Code [id number] Code Onset Dates Condition Status SNOMED Code Problem Generalized anxiety disorder F41.1 Active 029307222 Problem Intermittent explosive disorder F63.81 Active 88043617 Problem Adjustment disorder with disturbance of emotion F43.29 Active 12020348 Problem Affective disorder F39 Active 70604989 Problem Mild intermittent asthma without complication J45.20 Active 335463870 Problem Personality disorder F60.9 Active 12786208 Problem Anxiety disorder, unspecified type F41.9 Active 351879141 ALLERGIES No Information SOCIAL HISTORY Never Assessed PLAN OF CARE VITAL SIGNS MEDICATIONS Unknown Medications RESULTS Name Result Date Reference Range Biophysical Profile () w/ NST 2016-11-10 PROCEDURES No Known procedures IMMUNIZATIONS No Known Immunizations MEDICAL (GENERAL) HISTORY Type Description Date Medical History Anxiety Medical History Asthma Medical History Depression Medical History Bipolar Disorder Surgical History mole removal from back Surgical History cyst removal from face Surgical History 10/2016 Hospitalization History OB monitoring 09/2015 Hospitalization History Child 10/2016
--- OUTSIDE RECORDS SUMMARY | 2018-01-25 20:01 | XMS REPORT ---
Author Author JOSE GARCIA [facility] [employer] Address Unknown Phone Unavailable Care Team Providers Care Rn Shift Mgr Name Role Phone JOSE GARCIA CP Unavailable Allergies No Known Allergies Problems Problem Type Condition Code Onset Dates Condition Status Problem Second trimester bleeding O46.92 Active Problem Mild intermittent asthma without complication J45.20 Active Problem Affective disorder F39 Active Assessment care in second trimester Z34.92 Active Assessment 25 weeks gestation of Z3A.25 Active Problem First trimester bleeding O20.9 Active Problem Generalized anxiety disorder F41.1 Active Medications No Known Medications Procedures Procedure Coding System Code Date Office Visit, Est Pt., Level 2 CPT-4 38714 Aug 12, 2016 URINE-NO MICRO CPT-4 40774 Aug 12, 2016 Vital Signs Date/Time: Aug 12, 2016 Cardiac Monitoring Heart Rate 80 bpm Weight 135 lbs Height 65.7 in Wt Percentile 66.07 % BMI 21.989 Index Blood Pressure Diastolic 60 mmHg Blood Pressure Systolic 110 mmHg BMIPercentile 56.12 % Results Name Result Date Reference Range Unit Abnormality Flag UA OB DIP (IN HOUSE) ----Glucose negative 20160812 ----Protein negative [id number] Summary Purpose [employer] Submission
--- OUTSIDE RECORDS SUMMARY | 2018-01-25 20:01 | XMS REPORT ---
Author Author MANUEL YIP Organization [facility] Address [address] [place] [address] Care Team Providers Care Delivery Architect Name Role Phone PHI MANUEL Unavailable PROBLEMS Type Condition ICD9-CM Code NHP24-PI Code Onset Dates Condition Status SNOMED Code Problem Intermittent explosive disorder F63.81 Active 00616516 Problem Personality disorder F60.9 Active 25840941 Problem Generalized anxiety disorder F41.1 Active 842472100 Problem Affective disorder F39 Active 76030944 Problem Mild intermittent asthma without complication J45.20 Active [id number] ALLERGIES No Information ENCOUNTERS Encounter Location Date Diagnosis [facility] [address] [address] 11 Dec, 2017 [facility] [address] [address]- 0692 09 Dec, 2017 [facility] [address] 61977- 8295 28 Oct, 2017 Encounter for Depo-Provera contraception Z30.42 [facility] [address] [address]- 6487 Oct, [facility] [id number] [place] [address]00 [address]8518 Sep, Sore throat J02.9 and Acute nasopharyngitis J00 [facility] [address] [address] 13 Sep, 2017 Vaginal candidiasis B37.3 [facility] [id number] [place] [address] 50462- 3341 04 Sep, 2017 Generalized anxiety disorder F41.1 [facility] [address] [place] [address] Aug, [facility] [id number] [place] [address] 26400- 7593 Aug, [facility] [id number] [place] [address] 33483- 7829 Aug, Generalized anxiety disorder F41.1 [facility] [address] [address]41- 1876 Aug, Encounter for Depo-Provera contraception Z30.42 [facility] [id number] [place] [address] 08710- 8053 Jul, [facility] [address] 57926- 2064 Jul, Generalized anxiety disorder F41.1 [facility] [address] [address] Jun, Sore throat J02.9 [facility] [id number] [place] [address] 59010 -4152 30 May, 2017 Sore throat J02.9 and Strep pharyngitis J02.0 [facility] [id number] [place] [address] 38089- 3641 26 May, 2017 Encounter for Depo-Provera contraception Z30.42 [facility] [id number] [place] [address] 08102- 9320 May, [facility] [id number] [place] [address] 17867- 2088 Mar, Affective disorder F39 ; Adjustment disorder with disturbance of emotion F43.29 ; Intermittent explosive disorder F63.81 and Personality disorder F60.9 [facility] [id number] [place] [address] 68561- 1923 Mar, [facility] [id number] [place] [address] 85302- 4244 Mar, [facility] [id number] [place] [address] 99452- 9309 Mar, Adjustment disorder with disturbance of emotion F43.29 ; Intermittent explosive disorder F63.81 ; Anxiety disorder, unspecified type F41.9 and Personality disorder F60.9 [facility] [id number] [place] [address] 70813- 2997 Feb, Intermittent explosive disorder F63.81 ; Generalized anxiety disorder F41.1 ; Adjustment disorder with disturbance of emotion F43.29 and Personality disorder F60.9 [facility] [id number] [place] [address] 80561- 0671 Feb, Adjustment disorder with disturbance of emotion F43.29 ; Intermittent explosive disorder F63.81 ; Anxiety disorder, unspecified type F41.9 and Personality disorder F60.9 [facility] [id number] [place] [address] 56127- 5235 06 Feb, 2017 Affective disorder F39 and Generalized anxiety disorder F41.1 [facility] [id number] [place] [address] 18839- 9015 04 Dec, 2016 [id number] [place] [address] 10798- 6022 04 Dec, 2016 Encounter for visit Z39.2 ; control counseling Z30.09 and Encounter for Depo-Provera contraception Z30.42 [id number] [place] [address] 57213- 9730 16 Oct, 2016 [id number] [place] [address] 81069- 2858 16 Oct, 2016 care in third trimester Z34.93 ; CONY (amniotic fluid index) borderline low O28.8 ; Breech presentation, not applicable or unspecified fetus O32.1XX0 ; 37 weeks gestation of Z3A.37 and GBS ( group B Streptococcus carrier), +RV culture, currently O99.820 [id number] [place] [address] 66722- 2181 Oct, Breech presentation, not applicable or unspecified fetus O32.1XX0 and CONY (amniotic fluid index) borderline low O28.8 [facility] [id number] [place] [address] 13892- 1815 15 Oct, 2016 [facility] [id number] [place] [address] 47380- 1350 13 Oct, 2016 [facility] [address] 72838- 1985 07 Oct, 2016 screening for streptococcus B Z36 ; care , first in third trimester Z34.03 ; Fundal height low for dates, third trimester O26.843 and 36 weeks gestation of Z3A.36 [facility] [id number] [place] [address] 72819- 7804 Sep, care in third trimester Z34.93 and 35 weeks gestation of Z3A.35 [facility] [id number] [place] [address] 11825- 8207 Sep, [facility] [id number] [place] [address] 73340- 8130 Sep, care, first in third trimester Z34.03 ; care in second trimester Z34.92 ; Other specified related conditions, third trimester O26.893 ; Other specified noninflammatory disorders of vagina N89.8 and 33 weeks gestation of Z3A.33 [facility] [id number] [place] [address] 94522- 9353 Sep, [facility] [id number] [place] [address] 84875- 3422 Sep, Encounter for immunization Z23 ; care in third trimester Z34.93 and 31 weeks gestation of Z3A.31 [facility] [id number] [place] [address] 15429- 3521 Sep, [facility] [address] [place] [address] [id number] Aug, Dental examination Z01.20 [facility] [address] [address] 6339 Aug, [facility] [id number] [place] [address] 20924- 0271 Aug, Diabetes mellitus screening Z13.1 ; Screening, iron deficiency anemia Z13.0 ; 28 weeks gestation of Z3A.28 and Fundal height low for dates in third trimester O26.843 [facility] [id number] [place] [address] 66757- 2773 Aug, Generalized anxiety disorder F41.1 and Affective disorder F39 [facility] [id number] [place] [address] 51755- 5867 Jul, [facility] [id number] [place] [address] 16711- 3244 Jul, care in second trimester Z34.92 and 25 weeks gestation of Z3A.25 [facility] [id number] [place] [address] 14902- 0883 Jul, [address] [id number] [place] [address] 71692- 8936 Jun, care in second trimester Z34.92 ; Second trimester bleeding O46.92 and 21 weeks gestation of Z3A.21 [address] [place] [address] 27653- 7013 Jun, Affective disorder F39 and Generalized anxiety disorder F41.1 [facility] [address] [address]- 0445 Jun, [place] [id number] [place] [address] 88845- 4310 Jun, care in second trimester Z34.92 and 19 weeks gestation of Z3A.19 [address] [place] [address] 46784- 1789 Jun, 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 and Generalized anxiety disorder F41.1 [facility] [address] [place] [address] 47026- 9088 03 Jun, 2016 care in second trimester Z34.92 ; Vaginal bleeding in , second trimester O46.92 and 18 weeks gestation of Z3A.18 [facility] [id number] [place] [address] 44330- 0900 27 May, 2016 care in second trimester Z34.92 and 17 weeks gestation of Z3A.17 [facility] [id number] [place] [address] 21902- 7998 27 May, 2016 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 and Generalized anxiety disorder F41.1 [facility] [id number] [place] [address] 25128- 5416 20 May, 2016 [facility] [id number] [place] [address] 99921- 0208 May, [facility] [id number] [place] [address] 85396- 0351 Apr, [facility] [id number] [place] [address] 83886- 8511 Apr, First trimester Z33.1 ; Mild intermittent asthma without complication J45.20 and 12 weeks gestation of Z3A.12 [facility] [id number] [place] [address] 86818- 6714 Mar, [facility] [address] [place] [address] 22465 -1123 Mar, Vaginal lesion N89.8 and Positive test Z32.01 [facility] [id number] [place] [address] 60183- 4812 Feb, Oral contraceptive pill surveillance Z30.41 [facility] [id number] [place] [address] 75628- 5553 Feb, [facility] [address] 34587- 7797 January, Pelvic lymphadenopathy R59.0 [facility] [address] [place] [address] 05756 -2057 January, Pelvic lymphadenopathy R59.0 [facility] [id number] [place] [address] 57874- 1929 January, [facility] [id number] [place] [address] 37813 -8996 Dec, Dysuria R30.0 ; Acute urinary tract infection N39.0 and Vaginal yeast infection B37.3 [facility] [id number] [place] [address] 72424- 2437 Dec, [facility] [id number] [place] [address] 77124- 6937 Nov, [facility] [id number] [place] [address] 23614- 4878 Nov, [facility] [id number] [place] [address] 59288- 8862 Oct, [facility] [id number] [place] [address] 06517- 7700 Oct, penitentiary use of drug Z79.899 ; Bipolar disorder, unspecified F31.9 and Generalized anxiety disorder F41.1 [facility] [id number] [place] [address] 79678- 6706 Sep, [facility] [id number] [place] [address] 79577- 6224 Sep, Encounter for counseling regarding contraception Z30.9 ; OCP (oral contraceptive pills) initiation Z30.011 and Irregular menses N92.6 [facility] [place] [address] [place] [address] 81564- 6879 Sep, Encounter for counseling regarding contraception Z30.9 ; Unprotected sexual intercourse Z72.51 ; Routine screening for STI (sexually transmitted infection) Z11.3 and examination or test, unconfirmed Z32.00 [facility] [id number] [place] [address] 61296- 6273 Jul, Bipolar disorder, unspecified F31.9 and Generalized anxiety disorder F41.1 [facility] [id number] [place] [address] 56705- 6080 Jun, [facility] [id number] [place] [address] 87681- 5270 May, Generalized anxiety disorder 300.02 and Bipolar affective disorder 296.80 [facility] [id number] [place] [address] 80955- 7558 Apr, Encounter for Depo-Provera contraception V25.49 [facility] [id number] [place] [address] 53216- 6614 Mar, Bipolar affective disorder 296.80 and Generalized anxiety disorder 300.02 [facility] [id number] [place] [address] 34500- 9907 Feb, [facility] [id number] [place] [address] 86273- 8632 Feb, Encounter for surveillance of injectable contraceptive V25.49 and Screen for STD (sexually transmitted disease) V74.5 [facility] [id number] [place] [address] 24363- 4967 January, Generalized anxiety disorder 300.02 and Bipolar disorder, unspecified 296.80 [facility] [id number] [place] [address] 78938- 8162 Dec, [facility] [id number] [place] [address] 76109- 9730 Dec, [facility] [id number] [place] [address] 00492- 4870 Nov, [facility] [id number] [place] [address] 28453- 7266 Nov, [facility] [address] 62951- 2546 Nov, 2014 [facility] [place] [facility] [address] [id number] [place] [address]- 5241 Nov, 2014 [facility] [place] [facility] [address] [id number] [place] [address]- 9616 Nov, 2014 [facility] [place] [facility] [address] [id number] [place] [address]- 8707 Nov, 2014 [facility] [place] [facility] [address] [id number] [place] [address]- 3644 Nov, 2014 [facility] [place] [facility] [address] [id number] [place] [address]- 8124 Nov, 2014 [facility] [place] [facility] [address] [id number] [place] [address]- 2772 Oct, [facility] [place] [facility] [address] [id number] [place] [address]- 1150 Oct, 2014 [facility] [place] [facility] [address] [id number] [place] [address]- 4246 Aug, [facility] [place] [facility] [address] [id number] [place] [address]- 9751 Aug, [facility] [place] [facility] [address] [id number] [place] [address]- 0457 Aug, [facility] [place] [facility] [address] [id number] [place] [address]- 2932 Aug, [facility] [place] [facility] [address] [id number] [place] [address]- 5482 Aug, [facility] [place] [facility] [address] [id number] [place] [address]- 4534 Aug, [facility] [place] [facility] [address] [id number] [place] [address]- 1260 Aug, [facility] [place] [facility] [address] [id number] [place]- 9326 Aug, [facility] [place] [facility] [address] [id number] [place] [address]- 9826 Jul, [facility] [place] [facility] [address] [id number] [place] [address]- 0619 Jul, [facility] [place] [facility] [address] [id number] [place] [address]- 5238 Jul, [facility] [place] [facility] [address] [id number] [place] [address]- 1994 Jul, [facility] [place] [facility] [address] [id number] [place] [address]- 6137 Jun, [facility] [place] [facility] [address] [id number] [place] [address]- 9861 Jun, [facility] [place] [facility] [address] [id number] [place] [address]- 0424 Jun, [facility] [place] [facility] [address] [id number] [place] [address]- 7140 Jun, [facility] [place] [facility] [address] [id number] [place] [address]- 9898 Jun, [facility] [place] [facility] [address] [id number] [place] [address]- 2700 Jun, [facility] [place] [facility] [address] [id number] [place] [address]- 1842 16 May, 2013 [facility] [place] [facility] [address] [id number] [place] [address]- 6523 16 May, 2013 [facility] [place] [facility] [address] [id number] [place] [address]- 6021 05 Sep, 2013 [facility] [place] [facility] [address] [id number] [place] [address]- 2589 05 Sep, 2013 [facility] [place] [facility] [address] [id number] [place] [address]- 9528 04 Sep, 2013 [facility] [place] [facility] [address] [id number] [place] [address]- 9595 May, [facility] [place] [facility] [address] [id number] [place] [address]- 8429 Apr, [facility] [place] [facility] [address] [id number] [place] [address]- 2387 Apr, [facility] [place] [facility] [address] [id number] [place] [address]- 0694 Mar, [facility] [place] [facility] [address] [id number] [place] [address]- 6854 Mar, [facility] [place] [facility] [address] [id number] [place] [address]- 3770 Feb, [facility] [place] [facility] [address] [id number] [place] [address]- 9726 Feb, [facility] [place] [facility] [address] [id number] [place] [address]- 1575 Feb, [facility] [place] [facility] [address] [id number] [place] [address]- 6213 Feb, [facility] [place] [facility] [address] [id number] [place] [address]- 2799 Feb, [facility] [place] [facility] [address] [id number] [place] [address]- 9822 Feb, [facility] [place] [facility] [address] [id number] [place] [address]- 2543 Dec, [facility] [place] [facility] [address] [id number] [address]- 6968 Dec, [facility] [place] [facility] [address] [id number] [place] [address]- 7346 Dec, [facility] [place] [facility] [address] [id number] [place] [address]- 8820 Dec, [facility] [place] [facility] [address] [id number] [place] [address]- 6688 Nov, [facility] [place] [facility] [address] [id number] [place] [address]- 8444 Nov, [facility] [place] [facility] [address] [id number] [place] [address]- 5360 Nov, [facility] [place] [facility] [address] [id number] [place] [address]- 8914 Nov, [facility] [place] [facility] [address] [id number] [place] [address]- 8639 Nov, [facility] [place] [facility] [address] [id number] [place] [address]- 7227 Oct, [facility] [place] [facility] [address] [id number] [place] [address]- 5577 Oct, [facility] [place] [facility] [address] [id number] [place] [address]- 8157 Oct, [facility] [place] [facility] [address] [id number] [place] [address]- 2068 Sep, [facility] [place] [facility] [address] [id number] [place] [address]- 8718 Sep, [facility] [place] [facility] [address] [id number] [place] [address]- 2918 Sep, [facility] [place] [facility] [address] [id number] [place] [address]- 4511 Sep, [facility] [place] [facility] [address] [id number] [place] [address]- 0771 Sep, [facility] [place] [facility] [address] [id number] [place] [address]- 5631 Sep, [facility] [place] [facility] [address] [id number] [place] [address]- 5752 Aug, [facility] [place] [facility] [address] [id number] [place] [address]- 3581 Aug, [facility] [place] [facility] [address] [id number] [place] [address]- 2713 14 Jul, 2013 [facility] [place] [facility] [address] [id number] [place] [address]- 0837 14 Jul, 2013 [facility] [place] [facility] [address] [id number] [place] [address]- 5418 Jun, [facility] [place] [facility] [address] [id number] [place] [address]- 0778 Jun, [facility] [place] [facility] [address] [id number] [place] [address]- 8058 Jun, [facility] [address] [id number] [place] [address]- 5069 Jun, [facility] [place] [facility] [address] [id number] [place] [address]- 8034 26 May, 2013 [facility] [address] [id number] [place] [address]- 6054 26 May, 2013 [facility] [address] [id number] [place] [address]- 4948 25 May, 2013 [facility] [address] [id number] [place] [address]- 4614 24 May, 2013 [facility] [place] [facility] [address] [id number] [place] [address]- 0715 19 May, 2013 [facility] [place] [facility] [address] [id number] [place] [address]- 6638 13 May, 2013 [facility] [place] [facility] [address] [id number], [place] [address]- 4273 12 May, 2012 [facility] [place] [facility] [address] [id number] [place] [address]- 5807 11 May, 2013 [facility] [place] [facility] [address] [id number] [place] [address]- 3694 09 May, 2013 [facility] [place] [facility] [address] [id number] [place] [address]- 3006 29 Mar, 2013 [facility] [place] [facility] [address] [id number], [place] [address]- 8306 Mar, [facility] [address] [place] [address]- 1598 Feb, [facility] [address], [place] [address]- 8766 January, [facility] [address] [place] [address]- 8426 Dec, [facility] [address], [place] [address]- 6549 Oct, [facility] [address], [place] [address]- 2721 Sep, [facility] [address] [place] [address]- 4435 Aug, [facility] [address] 5292 Aug, [facility] [address] [place] [address]- 2643 Aug, [facility] [id number], [place] [address] Aug, [facility] [id number], [place] [address] Jun, [facility] [id number], [place] [address] May, [facility] [id number], [place] [address] May, [facility] [id number] [address] May, [facility] [id number] [address] May, IMMUNIZATIONS No Known Immunizations SOCIAL HISTORY Never Assessed REASON FOR VISIT f/u PLAN OF CARE Activity Details Follow Up 2 Weeks Reason:Depression and anxiety VITAL SIGNS MEDICATIONS Unknown Medications RESULTS No Results PROCEDURES Procedure Date Ordered Result Body Site Psychotherapy, patient &/family, 30 minutes, new patient March 20, 2017 INSTRUCTIONS MEDICATIONS ADMINISTERED No Known Medications MEDICAL (GENERAL) HISTORY Type Description Date Medical History Anxiety Medical History Asthma Medical History Depression Medical History Bipolar Disorder Surgical History mole removal from back Surgical History cyst removal from face Surgical History 10/2016 Hospitalization History OB monitoring 09/2015 Hospitalization History Child 10/2016
--- OUTSIDE RECORDS SUMMARY | 2018-01-25 20:01 | XMS REPORT ---
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
--- OUTSIDE RECORDS SUMMARY | 2018-01-25 20:01 | XMS REPORT ---
Author Author NUVIA OSORIO Organization [employer] Address Unknown Phone Unavailable Care Team Providers Care Finish Carpenter Name Role Phone NUVIA OSORIO CP Unavailable Allergies No Known Allergies Problems Problem Type Condition Code Onset Dates Condition Status Problem Anxiety state, unspecified 300.00 Active Problem Generalized anxiety disorder 300.02 Active Problem Encounter for surveillance of injectable contraceptive V25.49 Active Problem Adjustment disorder with depressed mood 309.0 Active Problem Bipolar disorder, unspecified 296.80 Active Problem Bipolar I disorder, most recent episode (or current) mixed, moderate 296.62 Active Medications Medication Code System Code Instructions Start Date End Date Status Dosage Xanax [facility] [address]-79 0.5 MG Orally 2 times a day PRN Lisa to sign for Man December 12, 2014 1 tablet Results No Known Results Summary Purpose [employer] Submission
--- OUTSIDE RECORDS SUMMARY | 2018-01-25 20:01 | XMS REPORT ---
Author Author JOSE GARCIA [facility] Address [address] [place] [address] Care Team Providers Care Electrolysis Engineer Name Role Phone JOSE GARCIA Unavailable PROBLEMS Type Condition ICD9-CM Code [id number] Code Onset Dates Condition Status SNOMED Code Problem Generalized anxiety disorder F41.1 Active 958344084 Problem Intermittent explosive disorder F63.81 Active 65495111 Problem Adjustment disorder with disturbance of emotion F43.29 Active 05007258 Problem Affective disorder F39 Active 61512507 Problem Mild intermittent asthma without complication J45.20 Active 435800160 Problem Personality disorder F60.9 Active 22823146 Problem Anxiety disorder, unspecified type F41.9 Active 132092127 ALLERGIES Unknown Allergies SOCIAL HISTORY No smoking Hx information available PLAN OF CARE VITAL SIGNS MEDICATIONS Unknown Medications RESULTS No Results PROCEDURES No Known procedures IMMUNIZATIONS No Known Immunizations
--- OUTSIDE RECORDS SUMMARY | 2018-01-25 20:01 | XMS REPORT ---
Author Author RADHA JOSE Organization [facility] Address [address] [place] [address] Care Team Providers Care Cold Roll Catcher Name Role Phone JOSE GARCIA Unavailable PROBLEMS Type Condition ICD9-CM Code [id number] Code Onset Dates Condition Status SNOMED Code Problem Generalized anxiety disorder F41.1 Active 091787516 Problem Intermittent explosive disorder F63.81 Active 37940193 Problem Adjustment disorder with disturbance of emotion F43.29 Active 60352858 Problem Affective disorder F39 Active 29160296 Problem Mild intermittent asthma without complication J45.20 Active 660912659 Problem Personality disorder F60.9 Active 98407315 Problem Anxiety disorder, unspecified type F41.9 Active 243581637 ALLERGIES No Information SOCIAL HISTORY Never Assessed PLAN OF CARE Activity Details Follow Up 1 Week, 1 Week Reason: VITAL SIGNS Height 65.7 in 2016-11-06 Weight 154.5 lbs 2016-11-06 Temperature 97.5 degrees Fahrenheit 2016-11-06 Heart Rate 80 bpm 2016-11-06 Respiratory Rate 18 2016-11-06 BMI 25.165 kg/m2 2016-11-06 Blood pressure systolic 119 mmHg 2016-11-06 Blood pressure diastolic 78 mmHg 2016-11-06 MEDICATIONS Medication Instructions Dosage Frequency Start Date End Date Duration Status 28-0.8 MG Active Albuterol Sulfate 90 mcg/actuation inhale 2 puffs by inhalation route every 6 hours PRN cough or wheezing Jun, Active RESULTS Name Result Date Reference Range UA LONG DIP (IN HOUSE) 2016-11-06 Lot # [id number] Exp date Clarity Turbid Color DarkYellow Odor Yes GLU Negative PÉREZ Negative KET 1+ SG 1.020 BLO 3+ pH 8.5 Protein 1+ URO 0.2 NIT Negative TERRANCE 1+ Lot # Exp date PROCEDURES Procedure Date Ordered Result Body Site NON-STRESS TEST 2016-11-06 N/A URINALYSIS, AUTO, W/O SCOPE Nov 06, 2016 NON-STRESS TEST Nov 06, 2016 IMMUNIZATIONS No Known Immunizations MEDICAL (GENERAL) HISTORY Type Description Date Medical History Anxiety Medical History Asthma Medical History Depression Medical History Bipolar Disorder Surgical History mole removal from back Surgical History cyst removal from face Surgical History 10/2016 Hospitalization History OB monitoring 09/2015 Hospitalization History Child 10/2016
[2018-01-25] MEDS ORDERED: SERT50TA9 (20:02)
--- OUTSIDE RECORDS SUMMARY | 2018-01-25 20:02 | XMS REPORT ---
Author Author JOSE GARCIA [facility] Address [address] [place] [address] Care Team Providers Care Naturopathic Oncology Provider Name Role Phone JOSE GARCIA Unavailable PROBLEMS Type Condition ICD9-CM Code [id number] Code Onset Dates Condition Status SNOMED Code Problem Mild intermittent asthma without complication J45.20 Active 363566412 Problem First trimester bleeding O20.9 Active 84822987 Problem Generalized anxiety disorder F41.1 Active 491779299 ALLERGIES Unknown Allergies SOCIAL HISTORY No smoking Hx information available PLAN OF CARE VITAL SIGNS MEDICATIONS Unknown Medications RESULTS No Results PROCEDURES No Known procedures IMMUNIZATIONS No Known Immunizations
--- OUTSIDE RECORDS SUMMARY | 2018-01-25 20:02 | XMS REPORT ---
Author Author VICKI PANIAGUA Organization [facility] Address [address] [place] [address] Care Team Providers Care Pharmacy Technician Program Director Name Role Phone VICKI PANIAGUA Unavailable PROBLEMS Type Condition ICD9-CM Code BXW02-PD Code Onset Dates Condition Status SNOMED Code Problem Affective disorder F39 Active 11197861 Problem Second trimester bleeding O46.92 Active 411219585 Problem Generalized anxiety disorder F41.1 Active 138879047 Assessment Generalized anxiety disorder F41.1 Aug, Active 66737962 Problem Mild intermittent asthma without complication J45.20 Active 766043862 Problem First trimester bleeding O20.9 Active 23803097 ALLERGIES Unknown Allergies SOCIAL HISTORY No smoking Hx information available PLAN OF CARE VITAL SIGNS MEDICATIONS Unknown Medications RESULTS No Results PROCEDURES Procedure Date Ordered Related Diagnosis Body Site Psychotherapy, patient &/family, 45 minutes, established patient Aug 21, 2016 IMMUNIZATIONS No Known Immunizations
--- OUTSIDE RECORDS SUMMARY | 2018-01-25 20:02 | XMS REPORT ---
Author Author RADHA JOSE [facility] Address [address] [place] [address] Care Team Providers Care Stock Mixer Name Role Phone FRANCESCO GARCIAHANY Unavailable PROBLEMS Type Condition ICD9-CM Code GWI97-[id number] Code Onset Dates Condition Status SNOMED Code Assessment Fundal height low for dates in third trimester O26.843 Aug Active 712446243 Assessment Screening, iron deficiency anemia Z13.0 Aug, Active Assessment 28 weeks gestation of Z3A.28 Aug, Active 40916635 Problem Affective disorder F39 Active 83044783 Problem Second trimester bleeding O46.92 Active 241158437 Problem Generalized anxiety disorder F41.1 Active 174967255 Assessment Diabetes mellitus screening Z13.1 Aug, Active 633402870 Problem Mild intermittent asthma without complication J45.20 Active 224401548 Problem First trimester bleeding O20.9 Active 46031525 ALLERGIES Substance Reaction Event Type Date Status N.K.D.A. Unknown Non Drug Allergy Aug, Unknown SOCIAL HISTORY No smoking Hx information available PLAN OF CARE Activity Details Pending Test GLUCOSE GEOVANNI 1 HOUR Pending Test CBC Pending Test Ultrasound : OB, Limited 2 Weeks, 2 Weeks,Reason: VITAL SIGNS Height 65.7 in 2016-09-02 Weight 142.6 lbs 2016-09-02 Heart Rate 80 bpm 2016-09-02 Respiratory Rate 16 2016-09-02 BMI 23.227 kg/m2 2016-09-02 Blood pressure systolic 122 mmHg 2016-09-02 Blood pressure diastolic 64 mmHg 2016-09-02 MEDICATIONS Medication Instructions Dosage Frequency Start Date End Date Duration Status Vol-Care Rx 1 MG Orally Once a day 1 tablet 24h Jul, 30 day(s) Active RESULTS Name Result Date Reference Range UA OB DIP (IN HOUSE) 2016-09-02 Glucose Negative Protein Negative GLUCOSE GEOVANNI 1 HOUR 2016-09-02 Gestational Diabetes Screen 79 65-139 CBC 2016-09-02 WBC 11.9 3.4-10.8 RBC 3.49 3.77-5.28 Hemoglobin 11.5 11.1-15.9 Hematocrit 33.4 34.0-46.6 MCV 96 79-97 MCH 33.0 26.6-33.0 MCHC 34.4 31.5-35.7 RDW 13.1 12.3-15.4 Platelets 343 150-379 Neutrophils 76 Lymphs 17 Monocytes 6 Eos 0 Basos 0 Neutrophils (Absolute) 9.0 1.4-7.0 Lymphs (Absolute) 2.0 0.7-3.1 Monocytes(Absolute) 0.7 0.1-0.9 Eos (Absolute) 0.1 0.0-0.4 Baso (Absolute) 0.0 0.0-0.2 Immature Granulocytes 1 Immature Grans (Abs) 0.1 0.0-0.1 Ultrasound : OB, Limited 2016-09-04 PROCEDURES Procedure Date Ordered Related Diagnosis Body Site URINE-NO MICRO Sep 02, 2016 [facility] Sep 02, 2016 VENIPUNCT, ROUTINE* Sep 02, 2016 Office Visit, Est Pt., Level 2 Sep 02, 2016 IMMUNIZATIONS No Known Immunizations
--- OUTSIDE RECORDS SUMMARY | 2018-01-25 20:02 | XMS REPORT ---
Author Author JOSE GARCIA [employer] Address Unknown Phone Unavailable Care Team Providers Care Armed Guard Name Role Phone JOSE GARCIA CP Unavailable Allergies, Adverse Reactions, Alerts Substance Reaction Event Type N.K.D.A. Info Not Available Non Drug Allergy Problems Problem Type Condition Code Onset Dates Condition Status Problem First trimester bleeding O20.9 Active Problem Generalized anxiety disorder F41.1 Active Problem Mild intermittent asthma without complication J45.20 Active Assessment Mild intermittent asthma without complication J45.20 Active Assessment 12 weeks gestation of Z3A.12 Active Problem Bipolar mixed affective disorder, moderate F31.62 Active Assessment First trimester Z33.1 Active Medications Medication Code System Code Instructions Start Date End Date Status Dosage Albuterol Sulfate [facility] [address]-48 90 mcg/actuation Jun 29, 2013 inhale 2 puffs by inhalation route every 6 hours PRN cough or wheezing [facility] [address] 28-0.8 MG Orally not defined Procedures Procedure Coding System Code Date [facility]-4 NOBLL May 13, 2016 DRUG SCREEN NON TLC DEVICES CPT-4 52250 May 13, 2016 URINALYSIS, AUTO, W/O SCOPE CPT-4 22828 May 13, 2016 VENIPUNCT, ROUTINE* CPT-4 85978 May 13, 2016 No Charge CPT-4 03001 May 13, 2016 GLYCATED HEMOGLOBIN TEST CPT-4 70570 May 13, 2016 Office Visit, Est Pt., Level 3 CPT-4 52861 May 13, 2016 TATE VAG, DNA, DIR PROBE CPT-4 79381 May 13, 2016 Vital Signs Date/Time: May 13, 2016 Blood Pressure Systolic 100 mmHg Weight 120.5 lbs Height 65.7 in BMIPercentile 25.68 % Wt Percentile 40.57 % BMI 19.627 Index Blood Pressure Diastolic 68 mmHg Results No Known Results Summary Purpose [employer] Submission
--- OUTSIDE RECORDS SUMMARY | 2018-01-25 20:02 | XMS REPORT ---
Author Author NUVIA OSORIO Organization [employer] Address Unknown Phone Unavailable Care Team Providers Care Hat Stock Laminating Machine Operator Name Role Phone NUVIA OSORIO CP Unavailable Allergies, Adverse Reactions, Alerts Substance Reaction Event Type N.K.D.A. Info Not Available Non Drug Allergy Problems Problem Type Condition ICD-9 Code Onset Dates Condition Status Assessment Bipolar affective disorder 296.80 Active Problem Anxiety state, unspecified 300.00 Active Problem Generalized anxiety disorder 300.02 Active Problem Encounter for surveillance of injectable contraceptive V25.49 Active Problem Adjustment disorder with depressed mood 309.0 Active Assessment Generalized anxiety disorder 300.02 Active Problem Bipolar disorder, unspecified 296.80 Active Problem Bipolar I disorder, most recent episode (or current) mixed, moderate 296.62 Active Medications Medication Code System Code Instructions Start Date End Date Status Dosage Xanax [facility] [place] [address]-96 0.5 MG Orally 2 times a day PRN December 12, 2014 1 tablet Trileptal [facility] [place] 2] [address]-66 300 MG Orally twice a day April 18, 2015 1 tablet Depo-Provera Contraceptive NDC 0 150 mg/mL Oct 25, 2012 inject 150 mg by intramuscular route every 3 months Albuterol Sulfate [facility] [place] 2] [address]-07 90 mcg/actuation Jun 29, 2013 inhale 2 puffs by inhalation route every 6 hours PRN cough or wheezing Citalopram Hydrobromide [facility] [place]NOTE 2] [address]-92 40 MG Orally Once a day February 07, 2015 1 tablet Procedures Procedure Coding System Code Date Office Visit, Est Pt., Level 2 CPT-4 82261 May 23, 2015 Vital Signs Date/Time: May 23, 2015 Temperature 98.0 F BMIPercentile 33.02 % Weight 121.9 lbs Height 65.7 in BMI 19.85 Index Blood Pressure Diastolic 70 mmHg Blood Pressure Systolic 98 mmHg Cardiac Monitoring Heart Rate 88 bpm Wt Percentile 48.32 % Ht Percentile 72.39 % Results No Known Results Summary Purpose [employer] Submission
--- OUTSIDE RECORDS SUMMARY | 2018-01-25 20:02 | XMS REPORT ---
Author Author MAURI INIGUEZ [employer] Address Unknown Phone Unavailable Care Team Providers Care Peat Shredder Tender Name Role Phone MAURI INIGUEZ CP Unavailable Allergies, Adverse Reactions, Alerts Substance Reaction Event Type N.K.D.A. 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 Assessment care in second trimester Z34.92 Active Assessment Vaginal bleeding in , second trimester O46.92 Active Problem Generalized anxiety disorder F41.1 Active Problem Bipolar mixed affective disorder, moderate F31.62 Active Medications Medication Code System Code Instructions Start Date End Date Status Dosage Albuterol Sulfate [facility] [place] [address]-55 90 mcg/actuation Jun 29, 2013 inhale 2 puffs by inhalation route every 6 hours PRN cough or wheezing [facility] [place] [address] 28-0.8 MG Orally not defined Procedures Procedure Coding System Code Date Office Visit, Est Pt., Level 3 CPT-4 43288 Jun 23, 2016 URINE-NO MICRO CPT-4 39540 Jun 23, 2016 Vital Signs Date/Time: Jun 23, 2016 Cardiac Monitoring Heart Rate 84 bpm Weight 119.8 lbs Height 65.7 in Wt Percentile 38.65 % BMI 19.513 Index Blood Pressure Diastolic 68 mmHg Blood Pressure Systolic 110 mmHg BMIPercentile 23.79 % Results No Known Results Summary Purpose [employer] Submission
--- OUTSIDE RECORDS SUMMARY | 2018-01-25 20:02 | XMS REPORT ---
Author Author POONAM CINDY Organization [facility] Address [address] [place] [address] Care Team Providers Care Movie Operator Name Role Phone LEVINCINDY Schilling Unavailable PROBLEMS Type Condition ICD9-CM Code SVE40-FS Code Onset Dates Condition Status SNOMED Code Problem Post traumatic stress disorder (PTSD) F43.10 Active 74141529 Problem Personality disorder F60.9 Active 39058946 Problem Mild intermittent asthma without complication J45.20 Active 976527805 Problem Generalized anxiety disorder F41.1 Active 703964155 Problem Intermittent explosive disorder F63.81 Active 48337871 Problem Affective disorder F39 Active 05990580 ALLERGIES No Known Allergies ENCOUNTERS Encounter Location Date Diagnosis [facility] [id number] [place] [address] 84093- 6829 January, [facility] [address] 78205- 8206 January, [facility] [address] 97427- 2163 Dec, Adjustment disorder with disturbance of emotion F43.29 ; Intermittent explosive disorder F63.81 ; Anxiety disorder, unspecified type F41.9 and Personality disorder F60.9 [facility] [id number] [place] [address] 07139- 4144 Dec, Post traumatic stress disorder (PTSD) F43.10 [facility] [id number] [place] [address] 55979- 4580 28 Oct, 2017 Encounter for Depo-Provera contraception Z30.42 [facility] [id number] [place] [address] 19329- 3706 21 Oct, 2017 [facility] [address] [place] [address] Sep, Sore throat J02.9 and Acute nasopharyngitis J00 [facility] [id number] [place] [address] 32671 -9043 Sep, Vaginal candidiasis B37.3 [facility] [id number] [place] [address] 78670- 7451 Sep, Generalized anxiety disorder F41.1 [facility] [address] 09382 -0762 Aug, [facility] [address] 90188- 4267 Aug, [facility] [address] 62464- 7632 Aug, Generalized anxiety disorder F41.1 [facility] [address] 34118- 8204 Aug, Encounter for Depo-Provera contraception Z30.42 [facility] [id number] [place] [address] 57985- 1509 Jul, [facility] [address] 84739- 4235 Jul, Generalized anxiety disorder F41.1 [facility] [id number] [place] [address] 40255 -1821 Jun, Sore throat J02.9 [facility] [id number] [place] [address] 74239 -6063 30 May, 2017 Sore throat J02.9 and Strep pharyngitis J02.0 [facility] [id number] [place] [address] 48044- 3744 26 May, 2017 Encounter for Depo-Provera contraception Z30.42 [facility] [id number] [place] [address] 37322- 1419 14 May, 2017 [address] [address] [address] 6[address] Mar, Affective disorder F39 ; Adjustment disorder with disturbance of emotion F43.29 ; Intermittent explosive disorder F63.81 and Personality disorder F60.9 [place] [address] [address]- 1075 Mar, [place] [id number] [place] [address] 98383- 0323 Mar, [address] [id number] [place] [address] 15841- 6904 Mar, Adjustment disorder with disturbance of emotion F43.29 ; Intermittent explosive disorder F63.81 ; Anxiety disorder, unspecified type F41.9 and Personality disorder F60.9 [place] [id number] [place] [address] 30891- 8340 Feb, Intermittent explosive disorder F63.81 ; Generalized anxiety disorder F41.1 ; Adjustment disorder with disturbance of emotion F43.29 and Personality disorder F60.9 [place] [id number] [place] [address] 89808- 3279 Feb, Adjustment disorder with disturbance of emotion F43.29 ; Intermittent explosive disorder F63.81 ; Anxiety disorder, unspecified type F41.9 and Personality disorder F60.9 [place] [address] [address]- 6221 Feb, Affective disorder F39 and Generalized anxiety disorder F41.1 [place] [address], [place] [address]- 6654 Dec, [place] [id number] [place] [address] 67032- 8962 Dec, Encounter for visit Z39.2 ; control counseling Z30.09 and Encounter for Depo-Provera contraception Z30.42 [place] [address] [address]- 3626 16 Oct, 2016 [address] [address] [address]- 8856 16 Oct, 2016 care in third trimester Z34.93 ; CONY (amniotic fluid index) borderline low O28.8 ; Breech presentation, not applicable or unspecified fetus O32.1XX0 ; 37 weeks gestation of Z3A.37 and GBS ( group B Streptococcus carrier), +RV culture, currently O99.820 [place] [id number] [place] [address] 06733- 7061 15 Oct, 2016 Breech presentation, not applicable or unspecified fetus O32.1XX0 and CONY (amniotic fluid index) borderline low O28.8 [place] [id number] [place] [address] 09147- 9399 15 Oct, 2016 [place] [id number] [place] [address] 60437- 9740 13 Oct, 2016 [place] [id number] [place] [address] 70129- 7989 07 Oct, 2016 screening for streptococcus B Z36 ; care , first in third trimester Z34.03 ; Fundal height low for dates, third trimester O26.843 and 36 weeks gestation of Z3A.36 [address] [id number] [place] [address] 37480- 1878 31 Sep, 2016 care in third trimester Z34.93 and 35 weeks gestation of Z3A.35 [place] [id number] [place] [address] 88055- 1008 Sep, [place] [id number] [place] [address] 01657- 4103 17 Sep, 2016 care, first in third trimester Z34.03 ; care in second trimester Z34.92 ; Other specified related conditions, third trimester O26.893 ; Other specified noninflammatory disorders of vagina N89.8 and 33 weeks gestation of Z3A.33 [place] [id number] [place] [address] 89879- 5096 Sep, [facility] [id number] [place] [address] 80225- 6502 Sep, Encounter for immunization Z23 ; care in third trimester Z34.93 and 31 weeks gestation of Z3A.31 [place] [id number] [place] [address] 36398- 7923 Sep, [facility] [id number] [place] [address] [id number] Aug, Dental examination Z01.20 [place] [id number] [place] [address] 08800- 5742 Aug, [place] [id number] [place] [address] 64286- 3261 Aug, Diabetes mellitus screening Z13.1 ; Screening, iron deficiency anemia Z13.0 ; 28 weeks gestation of Z3A.28 and Fundal height low for dates in third trimester O26.843 [place] [id number] [place] [address] 92254- 9787 Aug, Generalized anxiety disorder F41.1 and Affective disorder F39 [place] [id number] [place] [address] 88875- 5847 Jul, [place] [id number] [place] [address] 22390- 6951 Jul, care in second trimester Z34.92 and 25 weeks gestation of Z3A.25 [place] [id number] [place] [address] 29339- 2420 Jul, [place] [id number] [place] [address] 09031- 7096 Jun, care in second trimester Z34.92 ; Second trimester bleeding O46.92 and 21 weeks gestation of Z3A.21 [place] [id number] [place] [address] 61367- 6951 17 Jun, 2016 Affective disorder F39 and Generalized anxiety disorder F41.1 [facility] [address], [place] [address]- 2810 11 Jun, 2016 [facility] [id number] [place] [address] 32653- 2907 11 Jun, 2016 care in second trimester Z34.92 and 19 weeks gestation of Z3A.19 [facility] [id number] [place] [address] 66686- 7085 10 Jun, 2016 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 and Generalized anxiety disorder F41.1 [facility] [address], [place] [address]- 7226 03 Jun, 2016 care in second trimester Z34.92 ; Vaginal bleeding in , second trimester O46.92 and 18 weeks gestation of Z3A.18 [facility] [address], [place] [address]- 5289 27 May, 2016 care in second trimester Z34.92 and 17 weeks gestation of Z3A.17 [facility] [address] [place] [address] 69436- 8863 27 May, 2016 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 and Generalized anxiety disorder F41.1 [facility] [address], [place] [address]- 7019 May, [facility] [address], [place] [address]- 6014 May, [facility] [id number] [place] [address] 91425- 7001 Apr, [facility] [address], [place] [address]- 6691 Apr, First trimester Z33.1 ; Mild intermittent asthma without complication J45.20 and 12 weeks gestation of Z3A.12 [facility] [address], [place] [address]- 1703 Mar, [facility] [id number] [place] [address] 84445 -1482 Mar, Vaginal lesion N89.8 and Positive test Z32.01 [place] [id number] [place] [address] 01596- 5333 Feb, Oral contraceptive pill surveillance Z30.41 [facility] [id number] [place] [address] 37573- 1611 Feb, [facility] [id number] [place] [address] 52479- 0972 January, Pelvic lymphadenopathy R59.0 [facility] [id number] [place] [address] 13016 -9961 January, Pelvic lymphadenopathy R59.0 [place] [id number] [place] [address] 71417- 3073 January, [facility] [id number] [place] [address] 89040 -5792 Dec, Dysuria R30.0 ; Acute urinary tract infection N39.0 and Vaginal yeast infection B37.3 [place] [id number] [place] [address] 48443- 8871 Dec, [place] [id number] [place] [address] 23771- 0610 Nov, [place] [id number] [place] [address] 10579- 9640 Nov, [facility] [id number] [place] [address] 17005- 8384 Oct, [facility] [id number] [place] [address] 55066- 9673 Oct, watermaster use of drug Z79.899 ; Bipolar disorder, unspecified F31.9 and Generalized anxiety disorder F41.1 [place] [id number] [place] [address] 93673- 7348 Sep, [facility] [id number] [place] [address] 36560- 4975 12 Sep, 2015 Encounter for counseling regarding contraception Z30.9 ; OCP (oral contraceptive pills) initiation Z30.011 and Irregular menses N92.6 [id number] [place] [address] 22069- 0913 04 Sep, 2015 Encounter for counseling regarding contraception Z30.9 ; Unprotected sexual intercourse Z72.51 ; Routine screening for STI (sexually transmitted infection) Z11.3 and examination or test, unconfirmed Z32.[address] 10766- 6295 Jul, Bipolar disorder, unspecified F31.9 and Generalized anxiety disorder F41.1 [id number] [place] [address] 18005- 4304 Jun, [address] 52286- 2435 May, Generalized anxiety disorder 300.02 and Bipolar affective disorder 296.[address] 10315- 5641 Apr, Encounter for Depo-Provera contraception V25.49 [place] [id number] [place] [address] 13315- 9324 Mar, Bipolar affective disorder 296.80 and Generalized anxiety disorder 300.02 [id number] [place] [address] 58262- 8090 Feb, [address] [id number] [place] [address] 15054- 7077 Feb, Encounter for surveillance of injectable contraceptive V25.49 and Screen for STD (sexually transmitted disease) V74.5 [address] [place] [id number] [place] [address] 98298- 2478 January, Generalized anxiety disorder 300.02 and Bipolar disorder, unspecified 296.[address] 20751- 0416 14 Dec, 2014 [facility] [place] [facility] [address] [id number] [place] [address]- 4479 13 Dec, 2014 [facility] [place] [facility] [address] [id number] [place] [address]- 6172 24 Nov, 2014 [facility] [place] [facility] [address] [id number] [place] [address]- 5326 Nov, [facility] [place] [facility] [address] [id number] [place] [address]- 3225 Nov, [facility] [place] [facility] [address] [id number] [place] [address]- 9214 Nov, [facility] [place] [facility] [address] [id number] [place] 7454 Nov, [facility] [place] [facility] [address] [id number] [place] [address]- 4187 Nov, [facility] [place] [facility] [address] [id number] [place] [address]- 7763 Nov, [facility] [place] [facility] [address] [id number] [place] [address]- 0801 Nov, [facility] [place] [facility] [address] [id number] [place] [address]- 1635 Oct, [facility] [place] [facility] [address] [id number] [place] [address]- 2290 Oct, [facility] [place] [facility] [address] [id number] [place] [address]- 3001 Aug, [facility] [place] [facility] [address] [id number] [place] [address]- 2634 Aug, [facility] [place] [facility] [address] [id number] [place] [address]- 4029 Aug, [facility] [place] [facility] [address] [id number] [place] 8606 Aug, [facility] [place] [facility] [address] [id number] [place] [address]- 6625 Aug, [facility] [place] [facility] [address] [id number] [place] [address]- 2984 Aug, [facility] [place] [facility] [address] [id number] [place] [address]- 1992 Aug, [facility] [place] [facility] [address] [id number] [place] [address]- 2197 Aug, [facility] [place] [facility] [address] [id number] [place] [address]- 7979 Jul, [facility] [place] [facility] [address] [id number] [place] [address]- 4166 Jul, [facility] [place] [facility] [address] [id number] [place] [address]- 3141 Jul, [facility] [place] [facility] [address] [id number] [place] [address]- 8326 Jul, [facility] [place] [facility] [address] [id number] [place] [address]- 7539 Jun, [facility] [place] [facility] [address] [id number] [place] [address]- 2175 Jun, [facility] [place] [facility] [address] [id number] [place] [address]- 1564 Jun, [facility] [place] [facility] [address] [id number] [place] [address]- 8515 Jun, [facility] [place] [facility] [address] [id number] [place] [address]- 6058 Jun, [facility] [place] [facility] [address] [id number] [place] [address]- 0379 Jun, [facility] [place] [facility] [address] [id number] [place] [address]- 6981 May, [facility] [place] [facility] [address] [id number] [place]- 8646 May, [facility] [place] [facility] [address] [id number] [place] [address]- 3509 05 May, 2013 [facility] [place] [facility] [address] [id number] [place] [address]- 7768 05 May, 2013 [facility] [place] [facility] [address] [id number] [place] [address]- 5265 May, 2013 [facility] [place] [facility] [address] [id number] [place] [address]- 7843 May, [facility] [place] [facility] [address] [id number] [place] [address]- 5050 Apr, [facility] [place] [facility] [address] [id number] [place] [address]- 2365 Apr, [facility] [place] [facility] [address] [id number] [place] [address]- 7587 Mar, [facility] [place] [facility] [address] [id number] [place] [address]- 0765 Mar, [facility] [place] [facility] [address] [id number] [place] [address]- 8184 Feb, [facility] [place] [facility] [address] [id number] [place] [address]- 5224 Feb, [facility] [place] [facility] [address] [id number] [place] [address]- 8761 Feb, [facility] [place] [facility] [address] [id number] [place] [address]- 7106 Feb, [facility] [place] [facility] [address] [id number] [place] [address]- 2458 Feb, [facility] [place] [facility] [address] [id number] [place] [address]- 9088 Feb, [facility] [place] [facility] [address] [id number] [place] [address]- 5808 Dec, [facility] [place] [facility] [address] [id number] [place] [address]- 2337 Dec, [facility] [place] [facility] [address] [id number] [place] [address]- 0595 Dec, [facility] [place] [facility] [address] [id number] [place] [address]- 5370 Dec, [facility] [place] [facility] [address] [id number] [place] [address]- 1866 Nov, [facility] [place] [facility] [address] [id number] [place] [address]- 2308 Nov, [facility] [place] [facility] [address] [id number] [place] [address]- 8643 Nov, [facility] [place] [facility] [address] [id number] [place] [address]- 4446 Nov, [facility] [place] [facility] [address] [id number] [place] [address]- 3237 Nov, [facility] [place] [facility] [address] [id number] [place] [address]- 0360 Oct, [facility] [place] [facility] [address] [id number] [place] [address]- 9494 Oct, [facility] [place] [facility] [address] [id number] [place] [address]- 8771 Oct, [facility] [place] [facility] [address] [id number] [place] [address]- 6905 Sep, [facility] [place] [facility] [address] [id number] [place] [address]- 2709 Sep, [facility] [place] [facility] [address] [id number] [place] [address]- 9063 Sep, [facility] [place] [facility] [address] [id number] [place] [address]- 9136 Sep, [facility] [place] [facility] [address] [id number] [place] [address]- 8810 Sep, [facility] [place] [facility] [address] [id number] [place] [address]- 3417 Sep, [facility] [place] [facility] [address] [id number] [place] [address]- 5150 Aug, [facility] [place] [facility] [address] [id number] [place] [address]- 2985 Aug, [facility] [place] [facility] [address] [id number] [place] [address]- 7247 Jul, [facility] [address] [id number] [place] [address]- 3922 Jul, [facility] [place] [facility] [address] [id number] [place] [address]- 5063 Jun, [facility] [address] [id number] [place] [address]- 0080 Jun, [facility] [address] [id number] [place] [address]- 4159 Jun, [facility] [place] [facility] [address] [id number] [place] [address]- 6555 Jun, [facility] [place] [facility] [address] [id number] [place] [address]- 0202 26 May, 2013 [facility] [place] [facility] [address] [id number] [place] [address]- 3018 26 May, 2013 [facility] [place] [facility] [address] [id number] [address]- 2037 25 Sep, 2012 [facility] [place] [facility] [address] [id number] [place] [address]- 5521 24 Sep, 2012 [facility] [place] [facility] [address] [id number] [place] [address]- 0229 19 Sep, 2012 [facility] [place] [facility] [address] [id number] [place] [address]- 9102 13 May, 2012 [facility] [place] [facility] [address] [id number] [place] [address]- 2546 May, [facility] [address] [id number] [place] [address]- 1006 May, [facility] [place] [facility] [address] [id number] [place] [address]- 6796 May, [facility] [place] [facility] [address] [id number] [place] [address]- 5269 Mar, [facility] [place] [facility] [address] [id number] [place] [address]- 3798 Mar, [facility] [place] [facility] [address] [id number] [place] [address]- 5432 Feb, [facility] [place] [facility] [address] [id number] [place] [address]- 15[address] January, [facility] [address] [id number] [place] [address] Dec, [facility] [place] [facility] [address] [id number] [place] [address] Oct, [facility] [address] [id number] [place] [address] Sep, [facility] [address] [id number] [place] [address] Aug, [facility] [address] [id number] [place] [address] Aug, [facility] [place] [facility] [address] [id number] [place] [address] Aug, [facility] [place] [facility] [address] [id number] [place] [address] Aug, [facility] [place] [facility] [address] [id number] [place] [address] Jun, [facility] [place] [facility] [address] [id number] [place] [address] May, [facility] [place] [facility] [address] [facility] [id number] [place] [address] 20 May, 2012 [facility] [address] [facility] [id number] [place] [address] 19 May, 2012 [facility] [address] [facility] [id number] [place] [address] 18 May, 2012 IMMUNIZATIONS No Known Immunizations SOCIAL HISTORY Never Assessed REASON FOR VISIT swollen lymph nodes and a sore throat. been sick since last night. [email or web address] PLAN OF CARE Activity Details Follow Up prn Reason: VITAL SIGNS Height 65.7 in 2017-06-20 Weight 119.0 lbs 2017-06-20 Temperature 98.2 degrees Fahrenheit 2017-06-20 Heart Rate 84 bpm 2017-06-20 Respiratory Rate 20 2017-06-20 BMI 19.38 kg/m2 2017-06-20 Blood pressure systolic 126 mmHg 2017-06-20 Blood pressure diastolic 68 mmHg 2017-06-20 MEDICATIONS Medication Instructions Dosage Frequency Start Date End Date Duration Status Amoxicillin 500 mg Orally every 12 hrs 1 capsule 12h 30 May, 2017 Jun, 10 day(s) Active RESULTS Name Result Date Reference Range STREP A (IN HOUSE) 2017-06-20 STREP A positive Control + Lot # [id number] Exp date dec 07 PROCEDURES Procedure Date Ordered Result Body Site STREP A ASSAY W/OPTIC Jun 20, 2017 INSTRUCTIONS MEDICATIONS ADMINISTERED No Known Medications MEDICAL (GENERAL) HISTORY Type Description Date Medical History Anxiety Medical History Asthma Medical History Depression Medical History Bipolar Disorder Surgical History mole removal from back Surgical History cyst removal from face Surgical History 10/2016 Hospitalization History OB monitoring 09/2015 Hospitalization History Child 10/2016
--- OUTSIDE RECORDS SUMMARY | 2018-01-25 20:02 | XMS REPORT ---
Author Author RADHA JOSE Organization [facility] Address [address] [place] [address] Care Team Providers Care Data Integration Developer Name Role Phone FRANCESCO GARCIAHANY Unavailable PROBLEMS Type Condition ICD9-CM Code [id number] Code Onset Dates Condition Status SNOMED Code Problem Generalized anxiety disorder F41.1 Active 175357020 Problem Intermittent explosive disorder F63.81 Active 94655359 Problem Adjustment disorder with disturbance of emotion F43.29 Active 47117334 Problem Affective disorder F39 Active 49124247 Problem Mild intermittent asthma without complication J45.20 Active 235149035 Problem Personality disorder F60.9 Active 36277707 Problem Anxiety disorder, unspecified type F41.9 Active 912068796 ALLERGIES No Known Allergies SOCIAL HISTORY Never Assessed PLAN OF CARE Activity Details Follow Up 1 Week Reason: VITAL SIGNS Height 65.7 in 2016-10-28 Weight 151.0 lbs 2016-10-28 Temperature 97.5 degrees Fahrenheit 2016-10-28 Heart Rate 82 bpm 2016-10-28 Respiratory Rate 22 2016-10-28 BMI 24.595 kg/m2 2016-10-28 Blood pressure systolic 120 mmHg 2016-10-28 Blood pressure diastolic 80 mmHg 2016-10-28 MEDICATIONS Medication Instructions Dosage Frequency Start Date End Date Duration Status 28-0.8 MG Active Albuterol Sulfate 90 mcg/actuation inhale 2 puffs by inhalation route every 6 hours PRN cough or wheezing Jun, Active RESULTS Name Result Date Reference Range CULTURE, GROUP B STREP (VAGINAL) 2016-10-28 Strep Gp B Culture Positive Negative Ultrasound : OB, Follow-up 2016-11-05 PROCEDURES Procedure Date Ordered Result Body Site LAB NOT BILLED BY [facility] Oct 28, 2016 IMMUNIZATIONS No Known Immunizations MEDICAL (GENERAL) HISTORY Type Description Date Medical History Anxiety Medical History Asthma Medical History Depression Medical History Bipolar Disorder Surgical History mole removal from back Surgical History cyst removal from face Surgical History 10/2016 Hospitalization History OB monitoring 09/2015 Hospitalization History Child 10/2016
--- OUTSIDE RECORDS SUMMARY | 2018-01-25 20:03 | XMS REPORT ---
Author Author JOSE GARCIA [facility] eClinical[employer] Address Unknown Phone Unavailable Care Team Providers Care Forwarder Operator Name Role Phone JOSE GARCIA Unavailable Allergies No Known Allergies Problems Problem Type Condition Code Onset Dates Condition Status Problem Second trimester bleeding O46.92 Active Problem Mild intermittent asthma without complication J45.20 Active Problem Affective disorder F39 Active Problem First trimester bleeding O20.9 Active Problem Generalized anxiety disorder F41.1 Active Medications Medication Code System Code Instructions Start Date End Date Status Dosage Vol-Care Rx [facility] [address]-59 1 MG Orally Once a day Aug 04, 2016 1 tablet Results No Known Results Summary Purpose eClinicalWorks Submission
--- OUTSIDE RECORDS SUMMARY | 2018-01-25 20:03 | XMS REPORT ---
Author Author JOSE GARCIA [facility] Address [address] [place] [address] Care Team Providers Care Senior Sales Representative Name Role Phone JOSE GARCIA Unavailable PROBLEMS Type Condition ICD9-CM Code [id number] Code Onset Dates Condition Status SNOMED Code Problem Generalized anxiety disorder F41.1 Active 443541641 Problem Intermittent explosive disorder F63.81 Active 42273868 Problem Adjustment disorder with disturbance of emotion F43.29 Active 59664444 Problem Affective disorder F39 Active 48387503 Problem Mild intermittent asthma without complication J45.20 Active 673755464 Problem Personality disorder F60.9 Active 48494744 Problem Anxiety disorder, unspecified type F41.9 Active 785083030 ALLERGIES Unknown Allergies SOCIAL HISTORY No smoking Hx information available PLAN OF CARE VITAL SIGNS MEDICATIONS Unknown Medications RESULTS No Results PROCEDURES No Known procedures IMMUNIZATIONS No Known Immunizations
--- OUTSIDE RECORDS SUMMARY | 2018-01-25 20:03 | XMS REPORT ---
Author Author JOSE GARCIA [facility] eClinical[employer] Address Unknown Phone Unavailable Care Team Providers Care Specification Consultant Name Role Phone JOSE GARCIA Unavailable Allergies [...]
--- OUTSIDE RECORDS SUMMARY | 2018-01-25 20:03 | XMS REPORT ---
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 Name Role Phone JOSE GARCIA Unavailable PROBLEMS Type Condition ICD9-CM Code [id number] Code Onset Dates Condition Status SNOMED Code Problem Post traumatic stress disorder (PTSD) F43.10 Active 13538502 Problem Personality disorder F60.9 Active 66311078 Problem Mild intermittent asthma without complication J45.20 Active 500038155 Problem Generalized anxiety disorder F41.1 Active 233895480 Problem Intermittent explosive disorder F63.81 Active 04651975 Problem Affective disorder F39 Active 86296340 ALLERGIES No Information ENCOUNTERS Encounter Location Date Diagnosis [facility] [id number] [place] [address] 59852- 8122 January, [facility] [address] 6[address]- 5064 January, [facility] [id number] [place] [address] 27378- 5560 Dec, Adjustment disorder with disturbance of emotion F43.29 ; Intermittent explosive disorder F63.81 ; Anxiety disorder, unspecified type F41.9 and Personality disorder F60.9 [facility] [id number] [place] [address] 86314- 5137 Dec, Post traumatic stress disorder (PTSD) F43.10 [facility] [id number] [place] [address] 84198- 1719 28 Oct, 2017 Encounter for Depo-Provera contraception Z30.42 [facility] [id number] [place] [address] 97017- 2309 21 Oct, 2017 [facility] [address] [place] [address] Sep, Sore throat J02.9 and Acute nasopharyngitis J00 [facility] [id number] [place] [address] 51139 -3249 Sep, Vaginal candidiasis B37.3 [facility] [id number] [place] [address] 19198- 7505 Sep, Generalized anxiety disorder F41.1 [facility] [id number] [place] [address] 83738 -2654 Aug, [facility] [id number] [place] [address] 48015- 0298 Aug, [facility] [id number] [place] [address] 83530- 3965 Aug, Generalized anxiety disorder F41.1 [facility] [address] 31160- 7797 Aug, Encounter for Depo-Provera contraception Z30.42 [facility] [id number] [place] [address] 77285- 8367 Jul, [facility] [id number] [place] [address] 70338- 1104 Jul, Generalized anxiety disorder F41.1 [facility] [id number] [place] [address] 11934 -4591 Jun, Sore throat J02.9 [facility] [id number] [place] [address] 32950 -1303 30 May, 2017 Sore throat J02.9 and Strep pharyngitis J02.0 [facility] [id number] [place] [address] 96351- 3175 26 May, 2017 Encounter for Depo-Provera contraception Z30.42 [facility] [id number] [place] [address] 69300- 1582 14 May, 2017 [facility] [address] [address] 87[address] Mar, Affective disorder F39 ; Adjustment disorder with disturbance of emotion F43.29 ; Intermittent explosive disorder F63.81 and Personality disorder F60.9 [facility] [address], [place] [address] 9910 Mar, [facility] [id number] [place] [address] 47328- 9881 Mar, [facility] [id number] [place] [address] 71011- 2023 Mar, Adjustment disorder with disturbance of emotion F43.29 ; Intermittent explosive disorder F63.81 ; Anxiety disorder, unspecified type F41.9 and Personality disorder F60.9 [facility] [address], [place] [address] 3670 Feb, Intermittent explosive disorder F63.81 ; Generalized anxiety disorder F41.1 ; Adjustment disorder with disturbance of emotion F43.29 and Personality disorder F60.9 [facility] [id number] [place] [address] 91547- 0848 Feb, Adjustment disorder with disturbance of emotion F43.29 ; Intermittent explosive disorder F63.81 ; Anxiety disorder, unspecified type F41.9 and Personality disorder F60.9 [facility] [facility] [address], [place] [address] 4622 Feb, Affective disorder F39 and Generalized anxiety disorder F41.1 [facility] [address], [place] [address]- 3181 Dec, [facility] [id number] [place] [address] 37275- 3629 Dec, Encounter for visit Z39.2 ; control counseling Z30.09 and Encounter for Depo-Provera contraception Z30.42 [facility] [address], [place] [address] 3301 16 Oct, 2016 [address] [facility] [address], [place] [address]- 7592 16 Oct, 2016 care in third trimester Z34.93 ; CONY (amniotic fluid index) borderline low O28.8 ; Breech presentation, not applicable or unspecified fetus O32.1XX0 ; 37 weeks gestation of Z3A.37 and GBS ( group B Streptococcus carrier), +RV culture, currently O99.820 [facility] [id number] [place] [address] 31974- 9486 15 Oct, 2016 Breech presentation, not applicable or unspecified fetus O32.1XX0 and CONY (amniotic fluid index) borderline low O28.8 [facility] [id number] [place] [address] 42753- 8307 15 Oct, 2016 [facility] [id number] [place] [address] 99345- 8560 13 Oct, 2016 [facility] [id number] [place] [address] 62450- 5245 07 Oct, 2016 screening for streptococcus B Z36 ; care , first in third trimester Z34.03 ; Fundal height low for dates, third trimester O26.843 and 36 weeks gestation of Z3A.36 [facility] [address] [place] [address] 95647- 1402 31 Sep, 2016 care in third trimester Z34.93 and 35 weeks gestation of Z3A.35 [facility] [id number] [place] [address] 81456- 6088 Sep, [facility] [id number] [place] [address] 71424- 5300 17 Sep, 2016 care, first in third trimester Z34.03 ; care in second trimester Z34.92 ; Other specified related conditions, third trimester O26.893 ; Other specified noninflammatory disorders of vagina N89.8 and 33 weeks gestation of Z3A.33 [facility] [id number] [place] [address] 41766- 5346 Sep, [facility] [address], [place] [address]- 9872 Sep, Encounter for immunization Z23 ; care in third trimester Z34.93 and 31 weeks gestation of Z3A.31 [facility] [id number] [place] [address] 59016- 5990 Sep, [facility] [id number] [place] [address] [id number] Aug, Dental examination Z01.20 [facility] [id number] [place] [address] 15336- 8128 Aug, [facility] [id number] [place] [address] 81258- 2261 Aug, Diabetes mellitus screening Z13.1 ; Screening, iron deficiency anemia Z13.0 ; 28 weeks gestation of Z3A.28 and Fundal height low for dates in third trimester O26.843 [facility] [address] [place] [address] 56341- 7787 Aug, Generalized anxiety disorder F41.1 and Affective disorder F39 [facility] [address] [place] [address] 58455- 7086 Jul, care in second trimester Z34.92 and 25 weeks gestation of Z3A.25 [facility] [address] [place] [address] 44971- 1471 Jul, [facility] [id number] [place] [address] 67976- 2527 Jul, [facility] [id number] [place] [address] 11179- 7741 Jun, care in second trimester Z34.92 ; Second trimester bleeding O46.92 and 21 weeks gestation of Z3A.21 [facility] [address], [place] [address]- 0081 17 Jun, 2016 Affective disorder F39 and Generalized anxiety disorder F41.1 [facility] [address], [place] [address]- 5539 11 Jun, 2016 [facility] [id number] [place] [address] 44238- 7847 11 Jun, 2016 care in second trimester Z34.92 and 19 weeks gestation of Z3A.19 [facility] [id number] [place] [address] 42554- 9303 10 Jun, 2016 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 and Generalized anxiety disorder F41.1 [facility] [address], [place] [address]- 8141 03 Jun, 2016 care in second trimester Z34.92 ; Vaginal bleeding in , second trimester O46.92 and 18 weeks gestation of Z3A.18 [facility] [address], [place] [address]- 9943 27 May, 2016 care in second trimester Z34.92 and 17 weeks gestation of Z3A.17 [facility] [id number] [place] [address] 16452- 1824 27 May, 2016 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 and Generalized anxiety disorder F41.1 [facility] [address], [place] [address]- 1884 May, [facility] [address], [place] [address]- 8092 May, [facility] [id number] [place] [address] 89630- 3264 Apr, [facility] [id number] [place] [address] 86057- 5247 Apr, First trimester Z33.1 ; Mild intermittent asthma without complication J45.20 and 12 weeks gestation of Z3A.12 [facility] [address], [place] [address]- 2967 Mar, [facility] [id number] [place] [address] 22563 -8608 Mar, Vaginal lesion N89.8 and Positive test Z32.01 [facility] [id number] [place] [address] 83457- 7761 Feb, Oral contraceptive pill surveillance Z30.41 [facility] [id number] [place] [address] 12928- 9837 Feb, [facility] [id number] [place] [address] 23183- 4743 January, Pelvic lymphadenopathy R59.0 [facility] [id number] [place] [address] 49560 -7160 January, Pelvic lymphadenopathy R59.0 [facility] [id number] [place] [address] 86023- 0590 January, [facility] [id number] [place] [address] 61525 -7946 Dec, Dysuria R30.0 ; Acute urinary tract infection N39.0 and Vaginal yeast infection B37.3 [facility] [id number] [place] [address] 00723- 7118 Dec, [facility] [id number] [place] [address] 20618- 6713 Nov, [address] [id number] [place] [address] 49930- 2253 Nov, [facility] [id number] [place] [address] 85021- 7516 Oct, [facility] [id number] [place] [address] 69033- 2002 Oct, 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 ; Bipolar disorder, unspecified F31.9 and Generalized anxiety disorder F41.1 [facility] [address] [place] [address] 70634- 3167 Sep, [facility] [id number] [place] [address] 81888- 1273 12 Sep, 2015 Encounter for counseling regarding contraception Z30.9 ; OCP (oral contraceptive pills) initiation Z30.011 and Irregular menses N92.6 [facility] [id number] [place] [address] 55436- 3935 04 Sep, 2015 Encounter for counseling regarding contraception Z30.9 ; Unprotected sexual intercourse Z72.51 ; Routine screening for STI (sexually transmitted infection) Z11.3 and examination or test, unconfirmed Z32.[address] 39699- 8560 Jul, Bipolar disorder, unspecified F31.9 and Generalized anxiety disorder F41.1 [place] [id number] [place] [address] 01915- 3387 Jun, [address] 75182- 4846 May, Generalized anxiety disorder 300.02 and Bipolar affective disorder 296.[address] 64722- 8857 Apr, Encounter for Depo-Provera contraception V25.49 [place] [id number] [place] [address] 86700- 9185 Mar, Bipolar affective disorder 296.80 and Generalized anxiety disorder 300.[address] 77666- 3765 Feb, [place] [id number] [place] [address] 65475- 5911 Feb, Encounter for surveillance of injectable contraceptive V25.49 and Screen for STD (sexually transmitted disease) V74.5 [place] [id number] [place] [address] 73252- 7532 January, Generalized anxiety disorder 300.02 and Bipolar disorder, unspecified 296.[address] 31671- 2546 14 Dec, 2014 [facility] [place] [facility] [address] [id number] [place] [address]- 1923 Dec, [facility] [place] [facility] [address] [id number] [place] [address]- 7554 24 Nov, 2014 [facility] [place] [facility] [address] [id number] [place] [address]- 1243 Nov, [facility] [place] [facility] [address] [id number] [place] [address]- 8127 Nov, [facility] [place] [facility] [address] [id number] [place] [address]- 2499 Nov, [facility] [place] [facility] [address] [id number] [place] [address]- 3827 Nov, [facility] [place] [facility] [address] [id number] [place] [address]- 1957 Nov, [facility] [place] [facility] [address] [id number] [place] [address]- 6212 Nov, [facility] [place] [facility] [address] [id number] [place] [address]- 7113 Nov, [facility] [place] [facility] [address] [id number] [place] [address]- 7034 Oct, [facility] [place] [facility] [address] [id number] [place] [address]- 9938 Oct, [facility] [place] [facility] [address] [id number] [place] [address]- 8775 Aug, [facility] [place] [facility] [address] [id number] [place] [address]- 1935 Aug, [facility] [place] [facility] [address] [id number] [place] [address]- 7666 Aug, [facility] [place] [facility] [address] [id number] [place] 4727 Aug, [facility] [place] [facility] [address] [id number] [place] [address]- 3784 Aug, [facility] [place] [facility] [address] [id number] [place] 1616 Aug, [facility] [place] [facility] [address] [id number] [place] [address]- 8017 Aug, [facility] [place] [facility] [address] [id number] [place] 1240 Aug, [facility] [place] [facility] [address] [id number] [place] [address]- 0683 Jul, [facility] [place] [facility] [address] [id number] [place] 6079 Jul, [facility] [place] [facility] [address] [id number] [place] [address]- 6889 Jul, [facility] [place] [facility] [address] [id number] [place] [address]- 5048 Jul, [facility] [place] [facility] [address] [id number] [place] [address]- 4899 Jun, [facility] [place] [facility] [address] [id number] [place] [address]- 5743 Jun, [facility] [place] [facility] [address] [facility] [id number] [place] [address]- 9626 Jun, [facility] [place] [facility] [address] [id number] [place] [address]- 3541 Jun, [facility] [place] [facility] [address] [id number] [place] [address]- 6810 Jun, [facility] [place] [facility] [address] [id number] [place] [address]- 7771 Jun, [facility] [place] [facility] [address] [id number] [place] [address]- 6391 May, [facility] [place] [facility] [address] [id number] [place] [address]- 9508 May, [facility] [place] [facility] [address] [id number] [place] [address]- 1502 05 May, 2013 [facility] [place] [facility] [address] [id number] [place] [address]- 9956 05 May, 2014 [facility] [place] [facility] [address] [id number] [place] [address]- 1335 May, [facility] [place] [facility] [address] [id number] [place] [address]- 2349 May, [facility] [place] [facility] [address] [id number] [place] [address]- 9183 Apr, [facility] [place] [facility] [address] [id number] [place] [address]- 2207 Apr, [facility] [place] [facility] [address] [id number] [place] [address]- 3505 Mar, [facility] [place] [facility] [address] [id number] [place] [address]- 6940 Mar, [facility] [place] [facility] [address] [id number] [place] [address]- 9762 Feb, [facility] [place] [facility] [address] [id number] [place] [address]- 4168 Feb, [facility] [place] [facility] [address] [id number] [place] [address]- 4432 Feb, [facility] [place] [facility] [address] [id number], [place] [address]- 9769 Feb, [facility] [place] [facility] [address] [id number] [place] [address]- 3278 Feb, [facility] [place] [facility] [address] [id number] [place] [address]- 7410 Feb, [facility] [place] [facility] [address] [id number] [place] [address]- 5148 Dec, [facility] [place] [facility] [address] [id number] [place] [address]- 6731 07 Dec, 2013 [facility] [place] [facility] [address] [id number] [place] [address]- 9577 Dec, [facility] [place] [facility] [address] [id number] [place] [address]- 5294 Dec, [facility] [place] [facility] [address] [id number] [place] [address]- 0493 Nov, [facility] [place] [facility] [address] [id number] [place] [address]- 0400 Nov, [facility] [place] [facility] [address] [id number] [place] [address]- 2785 Nov, [facility] [place] [facility] [address] [id number] [place] [address]- 9742 Nov, [facility] [place] [facility] [address] [id number] [place] [address]- 6836 Nov, [facility] [place] [facility] [address] [id number] [place] [address]- 7588 Oct, [facility] [place] [facility] [address] [id number] [place] [address]- 3318 Oct, [facility] [place] [facility] [address] [id number] [place] [address]- 1957 Oct, [facility] [place] [facility] [address] [id number] [place] [address]- 6520 Sep, [facility] [place] [facility] [address] [id number] [place] [address]- 4475 Sep, [facility] [place] [facility] [address] [id number] [place] [address]- 5776 Sep, [facility] [place] [facility] [address] [id number] [place] [address]- 1820 Sep, [facility] [place] [facility] [address] [id number] [place] [address]- 2717 Sep, [facility] [place] [facility] [address] [id number] [place] [address]- 3831 Sep, [facility] [address] [id number] [place] [address]- 8697 Aug, [facility] [place] [facility] [address] [id number] [place] [address]- 9450 Aug, [facility] [place] [facility] [address] [id number] [place] [address]- 1309 Jul, [facility] [address] [id number] [place] [address]- 8573 Jul, [facility] [place] [facility] [address] [id number] [place] [address]- 1680 Jun, [facility] [address] [id number] [place] [address]- 6701 Jun, [facility] [address] [id number] [place] [address]- 7772 Jun, [facility] [address] [id number] [place] [address]- 6439 Jun, [facility] [place] [facility] [address] [id number] [place] [address]- 8293 26 May, 2013 [facility] [place] [facility] [address] [id number] [place] [address]- 4966 26 May, 2013 [facility] [place] [facility] [address] [id number], [place] [address]- 2205 25 Sep, 2012 [facility] [place] [facility] [address] [id number] [place] [address]- 8363 24 Sep, 2012 [facility] [place] [facility] [address] [id number] [place] [address]- 6847 19 Sep, 2012 [facility] [place] [facility] [address] [id number] [place] 9093 13 May, 2012 [facility] [place] [facility] [address] [id number] [place] [address] May, [facility] [address] [id number] [place] [address] May, [facility] [place] [facility] [address] [id number] [place] [address] May, [facility] [address] [id number] [place] [address] Mar, [facility] [place] [facility] [address] [id number] [place] [address] Mar, [facility] [address] [id number] [place] [address] Feb, [facility] [place] [facility] [address] [id number] [place] [address] January, [facility] [address] [id number] [place] [address] Dec, [facility] [address] [id number] [place] [address] Oct, [facility] [address] [id number] [place] [address] Sep, [facility] [address] [id number] [place] [address] Aug, [facility] [address] [id number] [place] [address] Aug, [facility] [place] [facility] [address] [id number] [place] [address] Aug, [facility] [place] [facility] [address] [id number] [place] [address] Aug, [facility] [place] [facility] [address] [id number] [place] [address] Jun, [facility] [place] [facility] [address] [id number] [place] [address] May, [facility] [place] [facility] [address] [id number] [place] [address] 20 May, 2012 [facility] [address] [facility] [id number] [place] [address] 19 May, 2012 [facility] [address] [facility] [id number] [place] [address] 18 May, 2012 IMMUNIZATIONS No Known Immunizations SOCIAL HISTORY Never Assessed REASON FOR VISIT PLAN OF CARE VITAL SIGNS MEDICATIONS Unknown Medications RESULTS No Results PROCEDURES No Known procedures INSTRUCTIONS MEDICATIONS ADMINISTERED No Known Medications MEDICAL (GENERAL) HISTORY Type Description Date Medical History Anxiety Medical History Asthma Medical History Depression Medical History Bipolar Disorder Surgical History mole removal from back Surgical History cyst removal from face Surgical History 10/2016 Hospitalization History OB monitoring 09/2015 Hospitalization History Child 10/2016
--- OUTSIDE RECORDS SUMMARY | 2018-01-25 20:04 | XMS REPORT ---
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 Name Role Phone JOSE GARCIA Unavailable PROBLEMS Type Condition ICD9-CM Code [id number] Code Onset Dates Condition Status SNOMED Code Problem Intermittent explosive disorder F63.81 Active 73355813 Problem Personality disorder F60.9 Active 86276805 Problem Generalized anxiety disorder F41.1 Active 105571748 Problem Affective disorder F39 Active 71202424 Problem Mild intermittent asthma without complication J45.20 Active [id number] ALLERGIES No Information ENCOUNTERS Encounter Location Date Diagnosis [facility] [address] [address]- [address] 11 Dec, 2017 [facility] [address] 41182- 9437 09 Dec, 2017 [facility] [address] 86172- 9991 28 Oct, 2017 Encounter for Depo-Provera contraception Z30.42 [facility] [address] 37991- 0135 Oct, [facility] [address] [address] Sep, Sore throat J02.9 and Acute nasopharyngitis J00 [facility] [address] 10[address]9113 13 Sep, 2017 Vaginal candidiasis B37.3 [facility] [address] 50005- 7548 04 Sep, 2017 Generalized anxiety disorder F41.1 [facility] [address] [place] [address] Aug, [facility] [id number] [place] [address] 77441- 4867 Aug, [facility] [id number] [place] [address] 03889- 8254 Aug, Generalized anxiety disorder F41.1 [facility] [address] 04183- 8150 Aug, Encounter for Depo-Provera contraception Z30.42 [facility] [id number] [place] [address] 34440- 0734 Jul, [facility] [address] 59071- 7638 Jul, Generalized anxiety disorder F41.1 [facility] [address] 49[address]8648 Jun, Sore throat J02.9 [facility] [id number] [place] [address] 45623 -1644 30 May, 2017 Sore throat J02.9 and Strep pharyngitis J02.0 [facility] [id number] [place] [address] 78250- 4679 26 May, 2017 Encounter for Depo-Provera contraception Z30.42 [facility] [id number] [place] [address] 09953- 2749 May, [facility] [id number] [place] [address] 70983- 1644 Mar, Affective disorder F39 ; Adjustment disorder with disturbance of emotion F43.29 ; Intermittent explosive disorder F63.81 and Personality disorder F60.9 [facility] [id number] [place] [address] 92757- 5628 Mar, [facility] [id number] [place] [address] 60765- 1388 Mar, [facility] [id number] [place] [address] 99495- 0082 Mar, Adjustment disorder with disturbance of emotion F43.29 ; Intermittent explosive disorder F63.81 ; Anxiety disorder, unspecified type F41.9 and Personality disorder F60.9 [facility] [id number] [place] [address] 68642- 2926 Feb, Intermittent explosive disorder F63.81 ; Generalized anxiety disorder F41.1 ; Adjustment disorder with disturbance of emotion F43.29 and Personality disorder F60.9 [facility] [id number] [place] [address] 70807- 5374 Feb, Adjustment disorder with disturbance of emotion F43.29 ; Intermittent explosive disorder F63.81 ; Anxiety disorder, unspecified type F41.9 and Personality disorder F60.9 [facility] [id number] [place] [address] 28978- 1918 06 Feb, 2017 Affective disorder F39 and Generalized anxiety disorder F41.1 [facility] [id number] [place] [address] 36788- 4507 04 Dec, 2016 [place] [id number] [place] [address] 63579- 5946 04 Dec, 2016 Encounter for visit Z39.2 ; control counseling Z30.09 and Encounter for Depo-Provera contraception Z30.42 [place] [id number] [place] [address] 82369- 6844 16 Oct, 2016 [place] [id number] [place] [address] 22754- 1293 16 Oct, 2016 care in third trimester Z34.93 ; CONY (amniotic fluid index) borderline low O28.8 ; Breech presentation, not applicable or unspecified fetus O32.1XX0 ; 37 weeks gestation of Z3A.37 and GBS ( group B Streptococcus carrier), +RV culture, currently O99.820 [place] [id number] [place] [address] 64385- 7366 Oct, Breech presentation, not applicable or unspecified fetus O32.1XX0 and CONY (amniotic fluid index) borderline low O28.8 [facility] [id number] [place] [address] 18114- 4493 15 Oct, 2016 [facility] [id number] [place] [address] 30053- 9259 13 Oct, 2016 [facility] [address] 67590- 6088 07 Oct, 2016 screening for streptococcus B Z36 ; care , first in third trimester Z34.03 ; Fundal height low for dates, third trimester O26.843 and 36 weeks gestation of Z3A.36 [facility] [id number] [place] [address] 34916- 5278 Sep, care in third trimester Z34.93 and 35 weeks gestation of Z3A.35 [facility] [id number] [place] [address] 42870- 8519 Sep, [facility] [id number] [place] [address] 50783- 4938 Sep, care, first in third trimester Z34.03 ; care in second trimester Z34.92 ; Other specified related conditions, third trimester O26.893 ; Other specified noninflammatory disorders of vagina N89.8 and 33 weeks gestation of Z3A.33 [facility] [id number] [place] [address] 83894- 1351 Sep, [facility] [id number] [place] [address] 50917- 1079 Sep, Encounter for immunization Z23 ; care in third trimester Z34.93 and 31 weeks gestation of Z3A.31 [facility] [id number] [place] [address] 79871- 8807 Sep, [facility] [address] [place] [address] [id number] Aug, Dental examination Z01.20 [facility] [address] [address]- 1760 Aug, [facility] [id number] [place] [address] 85696- 1799 Aug, Diabetes mellitus screening Z13.1 ; Screening, iron deficiency anemia Z13.0 ; 28 weeks gestation of Z3A.28 and Fundal height low for dates in third trimester O26.843 [facility] [id number] [place] [address] 14087- 0034 Aug, Generalized anxiety disorder F41.1 and Affective disorder F39 [facility] [id number] [place] [address] 71626- 1065 Jul, [facility] [id number] [place] [address] 05350- 1568 Jul, care in second trimester Z34.92 and 25 weeks gestation of Z3A.25 [facility] [id number] [place] [address] 57987- 7481 Jul, [place] [id number] [place] [address] 71526- 9735 Jun, care in second trimester Z34.92 ; Second trimester bleeding O46.92 and 21 weeks gestation of Z3A.[address] [place] [address] 97212- 7268 Jun, Affective disorder F39 and Generalized anxiety disorder F41.1 [facility] [address] [address]- 5491 Jun, [place] [id number] [place] [address] 51906- 7040 Jun, care in second trimester Z34.92 and 19 weeks gestation of Z3A.[address] [place] [address] 07553- 8011 Jun, 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 and Generalized anxiety disorder F41.1 [facility] [address] [place] [address] 20535- 7546 03 Jun, 2016 care in second trimester Z34.92 ; Vaginal bleeding in , second trimester O46.92 and 18 weeks gestation of Z3A.18 [facility] [id number] [place] [address] 29613- 4160 27 May, 2016 care in second trimester Z34.92 and 17 weeks gestation of Z3A.17 [facility] [id number] [place] [address] 74566- 1235 27 May, 2016 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 and Generalized anxiety disorder F41.1 [facility] [id number] [place] [address] 65078- 1313 20 May, 2016 [facility] [id number] [place] [address] 97653- 2184 May, [facility] [id number] [place] [address] 11980- 7992 Apr, [facility] [id number] [place] [address] 06074- 8884 Apr, First trimester Z33.1 ; Mild intermittent asthma without complication J45.20 and 12 weeks gestation of Z3A.12 [facility] [address] [place] [address] 74598- 0312 Mar, [facility] [id number] [place] [address] 13491 -7528 Mar, Vaginal lesion N89.8 and Positive test Z32.01 [facility] [id number] [place] [address] 73578- 9655 Feb, Oral contraceptive pill surveillance Z30.41 [facility] [id number] [place] [address] 07985- 8791 Feb, [facility] [address] 60492- 5575 January, Pelvic lymphadenopathy R59.0 [facility] [id number] [place] [address] 08329 -7042 January, Pelvic lymphadenopathy R59.0 [facility] [id number] [place] [address] 12824- 7280 January, [facility] [id number] [place] [address] 03021 -8232 Dec, Dysuria R30.0 ; Acute urinary tract infection N39.0 and Vaginal yeast infection B37.3 [facility] [id number] [place] [address] 77128- 4849 Dec, [facility] [id number] [place] [address] 51433- 5719 Nov, [facility] [id number] [place] [address] 62971- 8831 Nov, [facility] [id number] [place] [address] 89679- 1400 Oct, [facility] [id number] [place] [address] 29046- 2437 Oct, skilled nursing use of drug Z79.899 ; Bipolar disorder, unspecified F31.9 and Generalized anxiety disorder F41.1 [facility] [id number] [place] [address] 45908- 8612 Sep, [facility] [id number] [place] [address] 74214- 7895 Sep, Encounter for counseling regarding contraception Z30.9 ; OCP (oral contraceptive pills) initiation Z30.011 and Irregular menses N92.6 [facility] [address] [place] [address] 75717- 7217 Sep, Encounter for counseling regarding contraception Z30.9 ; Unprotected sexual intercourse Z72.51 ; Routine screening for STI (sexually transmitted infection) Z11.3 and examination or test, unconfirmed Z32.00 [facility] [id number] [place] [address] 33288- 4110 Jul, Bipolar disorder, unspecified F31.9 and Generalized anxiety disorder F41.1 [facility] [id number] [place] [address] 45888- 7211 Jun, [facility] [id number] [place] [address] 89315- 2488 May, Generalized anxiety disorder 300.02 and Bipolar affective disorder 296.80 [facility] [id number] [place] [address] 05345- 0321 Apr, Encounter for Depo-Provera contraception V25.49 [facility] [id number] [place] [address] 36356- 9859 Mar, Bipolar affective disorder 296.80 and Generalized anxiety disorder 300.02 [facility] [id number] [place] [address] 68202- 5321 Feb, [facility] [id number] [place] [address] 11146- 9711 Feb, Encounter for surveillance of injectable contraceptive V25.49 and Screen for STD (sexually transmitted disease) V74.5 [facility] [id number] [place] [address] 49149- 7340 January, Generalized anxiety disorder 300.02 and Bipolar disorder, unspecified 296.80 [facility] [id number] [place] [address] 58219- 2267 Dec, [facility] [id number] [place] [address] 75110- 5544 Dec, [facility] [id number] [place] [address] 26010- 7097 Nov, [facility] [id number] [place] [address] 71435- 1251 Nov, [facility] [address] 68208- 2546 Nov, 2014 [facility] [place] [facility] [address] [id number] [place] [address]- 1960 Nov, 2014 [facility] [place] [facility] [address] [id number] [place] [address]- 5606 Nov, 2014 [facility] [place] [facility] [address] [id number] [place] [address]- 7061 Nov, 2014 [facility] [place] [facility] [address] [id number] [place] [address]- 4329 Nov, 2014 [facility] [place] [facility] [address] [id number] [place] [address]- 1866 Nov, 2014 [facility] [place] [facility] [address] [id number] [place] [address]- 6487 Oct, [facility] [place] [facility] [address] [id number] [place] [address]- 1761 Oct, 2014 [facility] [place] [facility] [address] [id number] [place] [address]- 9718 Aug, [facility] [place] [facility] [address] [id number] [place] [address]- 4610 Aug, [facility] [place] [facility] [address] [id number] [place] [address]- 4227 Aug, [facility] [place] [facility] [address] [id number] [place] [address]- 3605 Aug, [facility] [place] [facility] [address] [id number] [place] [address]- 2369 Aug, [facility] [place] [facility] [address] [id number] [place] [address]- 6602 Aug, [facility] [place] [facility] [address] [id number] [place] [address]- 7509 Aug, [facility] [place] [facility] [address] [id number] [place] 2529 Aug, [facility] [place] [facility] [address] [id number] [place] [address]- 0483 Jul, [facility] [place] [facility] [address] [id number] [place] [address]- 7283 Jul, [facility] [place] [facility] [address] [id number] [place] [address]- 6666 Jul, [facility] [place] [facility] [address] [id number] [place] [address]- 0747 Jul, [facility] [place] [facility] [address] [id number] [place] [address]- 1070 Jun, [facility] [place] [facility] [address] [id number] [place] [address]- 2543 Jun, [facility] [place] [facility] [address] [id number] [place] [address]- 6741 Jun, [facility] [place] [facility] [address] [id number] [place] [address]- 3428 Jun, [facility] [place] [facility] [address] [id number] [place] [address]- 3238 Jun, [facility] [place] [facility] [address] [id number] [place] [address]- 9671 Jun, [facility] [place] [facility] [address] [id number] [place] [address]- 3142 16 May, 2013 [facility] [place] [facility] [address] [id number] [place] [address]- 9280 16 May, 2013 [facility] [place] [facility] [address] [id number] [place] [address]- 3583 05 Sep, 2013 [facility] [place] [facility] [address] [id number] [place] [address]- 7712 05 Sep, 2013 [facility] [place] [facility] [address] [id number] [place] [address]- 1034 04 Sep, 2013 [facility] [place] [facility] [address] [id number] [place] [address]- 7733 May, [facility] [place] [facility] [address] [id number] [place] [address]- 9076 Apr, [facility] [place] [facility] [address] [id number] [place] [address]- 8682 Apr, [facility] [place] [facility] [address] [id number] [place] [address]- 0529 Mar, [facility] [place] [facility] [address] [id number] [place] [address]- 6356 Mar, [facility] [place] [facility] [address] [id number] [place] [address]- 2975 Feb, [facility] [place] [facility] [address] [id number] [place] [address]- 1224 Feb, [facility] [place] [facility] [address] [id number] [place] [address]- 1018 Feb, [facility] [place] [facility] [address] [id number] [place] [address]- 3271 Feb, [facility] [place] [facility] [address] [id number] [place] [address]- 4883 Feb, [facility] [place] [facility] [address] [id number] [place] [address]- 3707 Feb, [facility] [place] [facility] [address] [id number] [place] [address]- 9865 Dec, [facility] [place] [facility] [address] [id number] [address]- 2673 Dec, [facility] [place] [facility] [address] [id number] [place] [address]- 4919 Dec, [facility] [place] [facility] [address] [id number] [place] [address]- 4064 Dec, [facility] [place] [facility] [address] [id number] [place] [address]- 4297 Nov, [facility] [place] [facility] [address] [id number] [place] [address]- 3254 Nov, [facility] [place] [facility] [address] [id number] [place] [address]- 6165 Nov, [facility] [place] [facility] [address] [id number] [place] [address]- 3034 Nov, [facility] [place] [facility] [address] [id number] [place] [address]- 2727 Nov, [facility] [place] [facility] [address] [id number] [place] [address]- 6635 Oct, [facility] [place] [facility] [address] [id number] [place] [address]- 5752 Oct, [facility] [place] [facility] [address] [id number] [place] [address]- 4292 Oct, [facility] [place] [facility] [address] [id number] [place] [address]- 8216 Sep, [facility] [place] [facility] [address] [id number] [place] [address]- 8607 Sep, [facility] [place] [facility] [address] [id number] [place] [address]- 7795 Sep, [facility] [place] [facility] [address] [id number] [place] [address]- 1798 Sep, [facility] [place] [facility] [address] [id number] [place] [address]- 4605 Sep, [facility] [place] [facility] [address] [id number] [place] [address]- 1100 Sep, [facility] [place] [facility] [address] [id number] [place] [address]- 5567 Aug, [facility] [place] [facility] [address] [id number] [place] [address]- 2680 Aug, [facility] [place] [facility] [address] [id number] [place] [address]- 2500 14 Jul, 2013 [facility] [place] [facility] [address] [id number] [place] [address]- 9089 14 Jul, 2013 [facility] [place] [facility] [address] [id number] [place] [address]- 6094 Jun, [facility] [place] [facility] [address] [id number] [place] [address]- 1222 Jun, [facility] [place] [facility] [address] [id number] [place] [address]- 4134 Jun, [facility] [address] [id number] [place] [address]- 7100 Jun, [facility] [place] [facility] [address] [id number] [place] [address]- 3417 26 May, 2013 [facility] [address] [id number] [place] [address]- 5067 26 May, 2013 [facility] [address] [id number] [place] [address]- 1500 25 May, 2013 [facility] [address] [id number] [place] [address]- 4687 24 May, 2013 [facility] [place] [facility] [address] [id number] [place] [address]- 5387 19 May, 2013 [facility] [place] [facility] [address] [id number] [place] [address]- 5979 13 May, 2013 [facility] [place] [facility] [address] [id number] [address]- 2804 12 May, 2012 [facility] [place] [facility] [address] [id number] [place] [address] 11 May, 2013 [facility] [place] [facility] [address] [id number] [place] [address] 09 May, 2013 [facility] [place] [facility] [address] [id number] [place] [address] 29 Mar, 2013 [facility] [place] [facility] [address] [id number] [address] Mar, [facility] [id number] [address] Feb, [facility] [id number] [address] January, [facility] [id number] [address] Dec, [facility] [id number] [address] Oct, [facility] [id number] [place] [address] Sep, [facility] [id number] [place] [address] Aug, [facility] [id number] [address] Aug, [facility] [id number] [address] Aug, [facility] [id number] [address] Aug, [facility] [id number] [address] Jun, [facility] [id number] [address] May, [facility] [id number] [address] May, [facility] [id number] [address] May, [facility] [id number] [address] May, IMMUNIZATIONS No Known Immunizations SOCIAL HISTORY [...]
[2018-01-25] MEDS ORDERED: CEPH500C PO (20:05)
--- OUTSIDE RECORDS SUMMARY | 2018-01-25 20:05 | XMS REPORT | Continuity of Care Document ---
Author Author [facility] Address Unknown Phone Unavailable Allergies Active Description Code Type Severity Reaction Onset Reported/Identified Relationship to Patient Clinical Status Yes No Known Drug Allergies [id number] Drug Allergy Unknown N/A 06/21/2016 Medications There is no data. Problems Date Dx Coded Attending Type Code Diagnosis Diagnosed By 06/08/2012 GREGG PERALTA APRN 112.1 CANDIDIASIS OF VULVA AND VAGINA 06/08/2012 GREGG PERALTA APRN V65.45 STD COUNSELING 06/08/2012 GREGG PERALTA APRN V69.2 HIGH-RISK SEXUAL BEHAVIOR 06/08/2012 GREGG PERALTA APRN V74.5 STD SCREEN 06/08/2012 112.1 CANDIDIASIS OF VULVA AND VAGINA 06/08/2012 V65.45 STD COUNSELING 06/08/2012 V69.2 HIGH-RISK SEXUAL BEHAVIOR 06/08/2012 V74.5 STD SCREEN 06/08/2012 112.1 CANDIDIASIS OF VULVA AND VAGINA 06/08/2012 V65.45 STD COUNSELING 06/08/2012 V69.2 HIGH-RISK SEXUAL BEHAVIOR 06/08/2012 V74.5 STD SCREEN 06/08/2012 112.1 CANDIDIASIS OF VULVA AND VAGINA 06/08/2012 V65.45 STD COUNSELING 06/08/2012 V69.2 HIGH-RISK SEXUAL BEHAVIOR 06/08/2012 V74.5 STD SCREEN 06/08/2012 112.1 CANDIDIASIS OF VULVA AND VAGINA 06/08/2012 V65.45 STD COUNSELING 06/08/2012 V69.2 HIGH-RISK SEXUAL BEHAVIOR 06/08/2012 V74.5 STD SCREEN 06/08/2012 112.1 CANDIDIASIS OF VULVA AND VAGINA 06/08/2012 V65.45 STD COUNSELING 06/08/2012 V69.2 HIGH-RISK SEXUAL BEHAVIOR 06/08/2012 V74.5 STD SCREEN 06/08/2012 JOY OCONNOR APRN 112.1 CANDIDIASIS OF VULVA AND VAGINA 06/08/2012 JOY OCONNOR APRN A V65.45 STD COUNSELING 06/08/2012 ANASTASIA LOPEZIan JOY A V69.2 HIGH-RISK SEXUAL BEHAVIOR 06/08/2012 ANASTASIA LOPEZIan JOY A V74.5 STD SCREEN 06/08/2012 MAURI INIGUEZ DO K 112.1 CANDIDIASIS OF VULVA AND VAGINA 06/08/2012 INIGUEZ ELDON NGA K V65.45 STD COUNSELING 06/08/2012 INIGUEZ ELDON NGA K V69.2 HIGH-RISK SEXUAL BEHAVIOR 06/08/2012 ELDON INIGUEZ DOA K V74.5 STD SCREEN 06/08/2012 REHAN TEJADA APRN 112.1 CANDIDIASIS OF VULVA AND VAGINA 06/08/2012 REHAN TEJADA APRN V65.45 STD COUNSELING 06/08/2012 REHAN TEJADA APRN V69.2 HIGH-RISK SEXUAL BEHAVIOR 06/08/2012 REHAN TEJADA APRN V74.5 STD SCREEN 06/08/2012 GREGG PERALTA APRN 112.1 CANDIDIASIS OF VULVA AND VAGINA 06/08/2012 GREGG PERALTA APRN V65.45 STD COUNSELING 06/08/2012 GREGG PERALTA APRN V69.2 HIGH-RISK SEXUAL BEHAVIOR 06/08/2012 GREGG PERALTA APRN V74.5 STD SCREEN 06/08/2012 MAURI INIGUEZ DO K 112.1 CANDIDIASIS OF VULVA AND VAGINA 06/08/2012 ELDON INIGUEZ DOA K V65.45 STD COUNSELING 06/08/2012 ELDON INIGUEZ DOA K V69.2 HIGH-RISK SEXUAL BEHAVIOR 06/08/2012 ELDON INIGUEZ DOA K V74.5 STD SCREEN 06/08/2012 RYAN SANTOS APRN R 112.1 CANDIDIASIS OF VULVA AND VAGINA 06/08/2012 RYAN SANTOS APRN R V65.45 STD COUNSELING 06/08/2012 RYAN SANTOS APRN R V69.2 HIGH-RISK SEXUAL BEHAVIOR 06/08/2012 RYAN SANTOS APRN R V74.5 STD SCREEN 06/08/2012 KATELYN PATEL APRN 112.1 CANDIDIASIS OF VULVA AND VAGINA 06/08/2012 KATELYN PATEL APRN V65.45 STD COUNSELING 06/08/2012 KATELYN PATEL APRNH V69.2 HIGH-RISK SEXUAL BEHAVIOR 06/08/2012 JORGE ANA LAURA KATELYN HERRERA V74.5 STD SCREEN 06/08/2012 GEETHA NG MAURI K 112.1 CANDIDIASIS OF VULVA AND VAGINA 06/08/2012 INIGUEZ DO MAURI K V65.45 STD COUNSELING 06/08/2012 INIGUEZ DO MAURI K V69.2 HIGH-RISK SEXUAL BEHAVIOR 06/08/2012 GEETHA NG MAURI K V74.5 STD SCREEN 06/08/2012 FRANSICO ERIC APRNYL A 112.1 CANDIDIASIS OF VULVA AND VAGINA 06/08/2012 HERNESTO DU ARABELLA A V65.45 STD COUNSELING 06/08/2012 HERNESTO DU ARABELLA A V69.2 HIGH-RISK SEXUAL BEHAVIOR 06/08/2012 HERNESTO DU ARABELLA A V74.5 STD SCREEN 06/08/2012 JOSE GARCIA MD 112.1 CANDIDIASIS OF VULVA AND VAGINA 06/08/2012 JOSE GARCIA MD V65.45 STD COUNSELING 06/08/2012 JOSE GARCIA MD V69.2 HIGH-RISK SEXUAL BEHAVIOR 06/08/2012 JOSE GARCIA MD V74.5 STD SCREEN 06/08/2012 JORGE DU KATELYN HERRERA 112.1 CANDIDIASIS OF VULVA AND VAGINA 06/08/2012 JORGE DU KATELYN SHARON V65.45 STD COUNSELING 06/08/2012 JORGE DU KATELYN DE LA PAZH V69.2 HIGH-RISK SEXUAL BEHAVIOR 06/08/2012 JORGE DU KATELYN DE LA PAZH V74.5 STD SCREEN 06/08/2012 ELDON INIGUEZ DOA K 112.1 CANDIDIASIS OF VULVA AND VAGINA 06/08/2012 GEETHA NG MAURI K V65.45 STD COUNSELING 06/08/2012 GEETHA NG MAURI K V69.2 HIGH-RISK SEXUAL BEHAVIOR 06/08/2012 INIGUEZ DO MAURI K V74.5 STD SCREEN 06/08/2012 JOY OCONNOR APRN A 112.1 CANDIDIASIS OF VULVA AND VAGINA 06/08/2012 ANASTASIA DU JOY A V65.45 STD COUNSELING 06/08/2012 ANASTASIALORENZA DU JOY A V69.2 HIGH-RISK SEXUAL BEHAVIOR 06/08/2012 JOY OCONNOR APRN V74.5 STD SCREEN 06/08/2012 INIGUEZ DO MAURI K 112.1 CANDIDIASIS OF VULVA AND VAGINA 06/08/2012 INIGUEZ DO, MAURI K V65.45 STD COUNSELING 06/08/2012 INIGUEZ DO, MAURI K V69.2 HIGH-RISK SEXUAL BEHAVIOR 06/08/2012 INIGUEZ DO, MAURI K V74.5 STD SCREEN 06/08/2012 KATELYN PATEL APRN 112.1 CANDIDIASIS OF VULVA AND VAGINA 06/08/2012 JORGE DU KATELYN HERRERA V65.45 STD COUNSELING 06/08/2012 KATELYN PATEL APRN V69.2 HIGH-RISK SEXUAL BEHAVIOR 06/08/2012 KATELYN PATEL APRN V74.5 STD SCREEN 06/08/2012 INIGUEZ DO MAURI K 112.1 CANDIDIASIS OF VULVA AND VAGINA 06/08/2012 INIGUEZ DO MAURI K V65.45 STD COUNSELING 06/08/2012 INIGUEZ DO MAURI K V69.2 HIGH-RISK SEXUAL BEHAVIOR 06/08/2012 INIGUEZ DO, MAURI K V74.5 STD SCREEN 06/08/2012 NUVIA MULTANI 112.1 CANDIDIASIS OF VULVA AND VAGINA 06/08/2012 NUVIA MULTANI V65.45 STD COUNSELING 06/08/2012 NUVIA MULTANI V69.2 HIGH-RISK SEXUAL BEHAVIOR 06/08/2012 NUVIA MULTANI V74.5 STD SCREEN 06/08/2012 INIGUEZ DO MAURI K 112.1 CANDIDIASIS OF VULVA AND VAGINA 06/08/2012 INIGUEZ DO MAURI K V65.45 STD COUNSELING 06/08/2012 INIGUEZ DO, MAURI K V69.2 HIGH-RISK SEXUAL BEHAVIOR 06/08/2012 INIGUEZ DO, MAURI K V74.5 STD SCREEN 06/08/2012 NUVIA MULTANI 112.1 CANDIDIASIS OF VULVA AND VAGINA 06/08/2012 NUVIA MULTANI V65.45 STD COUNSELING 06/08/2012 NUVIA MULTANI V69.2 HIGH-RISK SEXUAL BEHAVIOR 06/08/2012 NUVIA MULTANI V74.5 STD SCREEN 06/08/2012 JO B2B SALES MANAGER, NUVIA M 112.1 CANDIDIASIS OF VULVA AND VAGINA 06/08/2012 JO B2B SALES MANAGERNUVIA M V65.45 STD COUNSELING 06/08/2012 JO B2B SALES MANAGERNUVIA M V69.2 HIGH-RISK SEXUAL BEHAVIOR 06/08/2012 JO PORTERNUVIA M V74.5 STD SCREEN 06/08/2012 INIGUEZ DOELDONA K 112.1 CANDIDIASIS OF VULVA AND VAGINA 06/08/2012 INIGUEZ DO MAURI K V65.45 STD COUNSELING 06/08/2012 INIGUEZ DO MAURI K V69.2 HIGH-RISK SEXUAL BEHAVIOR 06/08/2012 INIGUEZ DO, MAURI K V74.5 STD SCREEN 06/08/2012 JO B2B SALES MANAGERNUVIA M 112.1 CANDIDIASIS OF VULVA AND VAGINA 06/08/2012 NUVIA MULTANI V65.45 STD COUNSELING 06/08/2012 JO PORTERNUVIA V69.2 HIGH-RISK SEXUAL BEHAVIOR 06/08/2012 JONUVIA WONG V74.5 STD SCREEN 09/01/2012 GREGG PERALTA APRN 465.9 UPPER RESPIRATORY INFECTION 09/01/2012 GREGG PERALTA APRN 706.2 SEBACEOUS CYST 09/01/2012 465.9 UPPER RESPIRATORY INFECTION 09/01/2012 706.2 SEBACEOUS CYST 09/01/2012 465.9 UPPER RESPIRATORY INFECTION 09/01/2012 706.2 SEBACEOUS CYST 09/01/2012 465.9 UPPER RESPIRATORY INFECTION 09/01/2012 706.2 SEBACEOUS CYST 09/01/2012 465.9 UPPER RESPIRATORY INFECTION 09/01/2012 706.2 SEBACEOUS CYST 09/01/2012 465.9 UPPER RESPIRATORY INFECTION 09/01/2012 706.2 SEBACEOUS CYST 09/01/2012 JOY OCONNOR APRN 465.9 UPPER RESPIRATORY INFECTION 09/01/2012 JOY OCONNOR APRN A 706.2 SEBACEOUS CYST 09/01/2012 MAURI INIGUEZ DO K 465.9 UPPER RESPIRATORY INFECTION 09/01/2012 INIGUEZ ELDON NGA K 706.2 SEBACEOUS CYST 09/01/2012 REHAN TEJADA APRN 465.9 UPPER RESPIRATORY INFECTION 09/01/2012 REHAN TEJADA APRN 706.2 SEBACEOUS CYST 09/01/2012 KATHRYN GOLDSMITH APPRENTICE, GREGG T 465.9 UPPER RESPIRATORY INFECTION 09/01/2012 KATHRYN GOLDSMITH APPRENTICE GREGG T 706.2 SEBACEOUS CYST 09/01/2012 INIGUEZ DO, MAURI K 465.9 UPPER RESPIRATORY INFECTION 09/01/2012 INIGUEZ DO, MAURI K 706.2 SEBACEOUS CYST 09/01/2012 SANTOS GOLDSMITH APPRENTICE, RYAN R 465.9 UPPER RESPIRATORY INFECTION 09/01/2012 SANTOS GOLDSMITH APPRENTICE, RYAN R 706.2 SEBACEOUS CYST 09/01/2012 PATEL GOLDSMITH APPRENTICE, KATELYN HERRERA 465.9 UPPER RESPIRATORY INFECTION 09/01/2012 PATEL GOLDSMITH APPRENTICE, KATELYN DE LA PAZH 706.2 SEBACEOUS CYST 09/01/2012 INIGUEZ DO, MAURI K 465.9 UPPER RESPIRATORY INFECTION 09/01/2012 INIGUEZ DO, MAURI K 706.2 SEBACEOUS CYST 09/01/2012 HERNESTO LOPEZN, ARABELLA A 465.9 UPPER RESPIRATORY INFECTION 09/01/2012 NATALIEOTTE GOLDSMITH APPRENTICE, ARABELLA A 706.2 SEBACEOUS CYST 09/01/2012 JOSE GARCIA MD N 465.9 UPPER RESPIRATORY INFECTION 09/01/2012 RADHA ALANIS, JOSE N 706.2 SEBACEOUS CYST 09/01/2012 APTEL GOLDSMITH APPRENTICE, KATELYN DE LA PAZH 465.9 UPPER RESPIRATORY INFECTION 09/01/2012 PATEL GOLDSMITH APPRENTICE, KATELYN HERRERA 706.2 SEBACEOUS CYST 09/01/2012 INIGUEZ DO, MAURI K 465.9 UPPER RESPIRATORY INFECTION 09/01/2012 INIGUEZ DO, MAURI K 706.2 SEBACEOUS CYST 09/01/2012 ANASTASIA DU, JOY A 465.9 UPPER RESPIRATORY INFECTION 09/01/2012 ANASTASIA GOLDSMITH APPRENTICE, JOY A 706.2 SEBACEOUS CYST 09/01/2012 INIGUEZ DO, MAURI K 465.9 UPPER RESPIRATORY INFECTION 09/01/2012 INIGUEZ DO, MAURI K 706.2 SEBACEOUS CYST 09/01/2012 PATEL GOLDSMITH APPRENTICE KATELYN SHARON 465.9 UPPER RESPIRATORY INFECTION 09/01/2012 PATEL GOLDSMITH APPRENTICE, KATELYN DE LA PAZH 706.2 SEBACEOUS CYST 09/01/2012 INIGUEZ DO, MAURI K 465.9 UPPER RESPIRATORY INFECTION 09/01/2012 INIGUEZ DO, MAURI K 706.2 SEBACEOUS CYST 09/01/2012 JO PORTER, NUVIA Lamar 465.9 UPPER RESPIRATORY INFECTION 09/01/2012 JO PORTER, NUVIA M 706.2 SEBACEOUS CYST 09/01/2012 INIGUEZ DO, MAURI K 465.9 UPPER RESPIRATORY INFECTION 09/01/2012 INIGUEZ DO, MAURI K 706.2 SEBACEOUS CYST 09/01/2012 JO B2B SALES MANAGER, NUVIA M 465.9 UPPER RESPIRATORY INFECTION 09/01/2012 JO B2B SALES MANAGER, NUVIA M 706.2 SEBACEOUS CYST 09/01/2012 JO B2B SALES MANAGER, NUIVA M 465.9 UPPER RESPIRATORY INFECTION 09/01/2012 JO B2B SALES MANAGER, NUVIA M 706.2 SEBACEOUS CYST 09/01/2012 INIGUEZ DO, MAURI K 465.9 UPPER RESPIRATORY INFECTION 09/01/2012 INIGUEZ DO, MAURI K 706.2 SEBACEOUS CYST 09/01/2012 JO B2B SALES MANAGER, NUVIA M 465.9 UPPER RESPIRATORY INFECTION 09/01/2012 JO B2B SALES MANAGER, NVUIA M 706.2 SEBACEOUS CYST 10/18/2012 623.5 LEUKORRHEA NOT SPECIFIED INFECTIVE 10/18/2012 V25.9 CONTRACEPTION MANAGEMENT 10/18/2012 623.5 LEUKORRHEA NOT SPECIFIED INFECTIVE 10/18/2012 V25.9 CONTRACEPTION MANAGEMENT 10/18/2012 623.5 LEUKORRHEA NOT SPECIFIED INFECTIVE 10/18/2012 V25.9 CONTRACEPTION MANAGEMENT 10/18/2012 623.5 LEUKORRHEA NOT SPECIFIED INFECTIVE 10/18/2012 V25.9 CONTRACEPTION MANAGEMENT 10/18/2012 623.5 LEUKORRHEA NOT SPECIFIED INFECTIVE 10/18/2012 V25.9 CONTRACEPTION MANAGEMENT 10/18/2012 JOY OCONNOR APRN 623.5 LEUKORRHEA NOT SPECIFIED INFECTIVE 10/18/2012 JOY OCONNOR APRN V25.9 CONTRACEPTION MANAGEMENT 10/18/2012 MAURI INIGUEZ DO 623.5 LEUKORRHEA NOT SPECIFIED INFECTIVE 10/18/2012 MAURI INIGUEZ DO K V25.9 CONTRACEPTION MANAGEMENT 10/18/2012 REHAN TEJADA APRN 623.5 LEUKORRHEA NOT SPECIFIED INFECTIVE 10/18/2012 REHAN TEJADA APRN V25.9 CONTRACEPTION MANAGEMENT 10/18/2012 RGEGG PERALTA APRN 623.5 LEUKORRHEA NOT SPECIFIED INFECTIVE 10/18/2012 GREGG PERALTA APRN V25.9 CONTRACEPTION MANAGEMENT 10/18/2012 INIGUEZ DO, MAURI K 623.5 LEUKORRHEA NOT SPECIFIED INFECTIVE 10/18/2012 INIGUEZ DO, MAURI K V25.9 CONTRACEPTION MANAGEMENT 10/18/2012 TOM GOLDSMITH APPRENTICEREGAN SosaRYAN R 623.5 LEUKORRHEA NOT SPECIFIED INFECTIVE 10/18/2012 TOM GOLDSMITH APPRENTICEREGAN SosaRYAN R V25.9 CONTRACEPTION MANAGEMENT 10/18/2012 PATEL GOLDSMITH APPRENTICE, KATELYN SHARON 623.5 LEUKORRHEA NOT SPECIFIED INFECTIVE 10/18/2012 PATEL GOLDSMITH APPRENTICE, KATELYN SHARON V25.9 CONTRACEPTION MANAGEMENT 10/18/2012 INIGUEZ DO, MAURI K 623.5 LEUKORRHEA NOT SPECIFIED INFECTIVE 10/18/2012 INIGUEZ DO, MAURI K V25.9 CONTRACEPTION MANAGEMENT 10/18/2012 FRANSICO ERIC APRNYL A 623.5 LEUKORRHEA NOT SPECIFIED INFECTIVE 10/18/2012 HERNESTO DU ARABELLA A V25.9 CONTRACEPTION MANAGEMENT 10/18/2012 JOSE GARCIA MD N 623.5 LEUKORRHEA NOT SPECIFIED INFECTIVE 10/18/2012 JOSE GARCIA MD V25.9 CONTRACEPTION MANAGEMENT 10/18/2012 JORGE DU KATELYN SHARON 623.5 LEUKORRHEA NOT SPECIFIED INFECTIVE 10/18/2012 PATELKATELYN NÚÑEZ APRN SHARON V25.9 CONTRACEPTION MANAGEMENT 10/18/2012 INIGUEZ DO, MAURI K 623.5 LEUKORRHEA NOT SPECIFIED INFECTIVE 10/18/2012 INIGUEZ DO, MAURI K V25.9 CONTRACEPTION MANAGEMENT 10/18/2012 ANASTASIA DU, JOY A 623.5 LEUKORRHEA NOT SPECIFIED INFECTIVE 10/18/2012 ANASTASIA ANA LAURA, JOY A V25.9 CONTRACEPTION MANAGEMENT 10/18/2012 INIGUEZ DO, MAURI K 623.5 LEUKORRHEA NOT SPECIFIED INFECTIVE 10/18/2012 INIGUEZ DO, MAURI K V25.9 CONTRACEPTION MANAGEMENT 10/18/2012 PATEL GOLDSMITH APPRENTICE, KATELYN SHARON 623.5 LEUKORRHEA NOT SPECIFIED INFECTIVE 10/18/2012 PATEL GOLDSMITH APPRENTICE, KATELYN SHARON V25.9 CONTRACEPTION MANAGEMENT 10/18/2012 INIGUEZ DO, MAURI K 623.5 LEUKORRHEA NOT SPECIFIED INFECTIVE 10/18/2012 INIGUEZ DO, MAURI K V25.9 CONTRACEPTION MANAGEMENT 10/18/2012 NUVIA MULTANI 623.5 LEUKORRHEA NOT SPECIFIED INFECTIVE 10/18/2012 UNVIA MULTANI M V25.9 CONTRACEPTION MANAGEMENT 10/18/2012 INIGUEZ ELDON NGA K 623.5 LEUKORRHEA NOT SPECIFIED INFECTIVE 10/18/2012 INIGUEZ DO, MAURI K V25.9 CONTRACEPTION MANAGEMENT 10/18/2012 NUVIA MULTANI M 623.5 LEUKORRHEA NOT SPECIFIED INFECTIVE 10/18/2012 JO PORTER, NUVIA M V25.9 CONTRACEPTION MANAGEMENT 10/18/2012 JO B2B SALES MANAGER, NUVIA M 623.5 LEUKORRHEA NOT SPECIFIED INFECTIVE 10/18/2012 JO PORTER, NUVIA M V25.9 CONTRACEPTION MANAGEMENT 10/18/2012 INIGUEZ DO, MAURI K 623.5 LEUKORRHEA NOT SPECIFIED INFECTIVE 10/18/2012 ELDON INIGUEZ DOA K V25.9 CONTRACEPTION MANAGEMENT 10/18/2012 NUVIA MULTANI M 623.5 LEUKORRHEA NOT SPECIFIED INFECTIVE 10/18/2012 NUVIA MULTANI M V25.9 CONTRACEPTION MANAGEMENT 10/25/2012 V25.49 CONTRACEPTION SURVEILLANCE (REPEAT RX) 10/25/2012 V25.49 CONTRACEPTION SURVEILLANCE (REPEAT RX) 10/25/2012 V25.49 CONTRACEPTION SURVEILLANCE (REPEAT RX) 10/25/2012 V25.49 CONTRACEPTION SURVEILLANCE (REPEAT RX) 10/25/2012 JOY OCONNOR APRN V25.49 CONTRACEPTION SURVEILLANCE (REPEAT RX) 10/25/2012 MAURI INIGUEZ DO V25.49 CONTRACEPTION SURVEILLANCE (REPEAT RX) 10/25/2012 REHAN TEJADA APRN V25.49 CONTRACEPTION SURVEILLANCE (REPEAT RX) 10/25/2012 GREGG PERALTA APRN V25.49 CONTRACEPTION SURVEILLANCE (REPEAT RX) 10/25/2012 MAURI INIGUEZ DO V25.49 CONTRACEPTION SURVEILLANCE (REPEAT RX) 10/25/2012 RYAN SANTOS APRN V25.49 CONTRACEPTION SURVEILLANCE (REPEAT RX) 10/25/2012 KATELYN PATEL APRN V25.49 CONTRACEPTION SURVEILLANCE (REPEAT RX) 10/25/2012 MAURI INIGUEZ DO V25.49 CONTRACEPTION SURVEILLANCE (REPEAT RX) 10/25/2012 ARABELLA ERIC APRN V25.49 CONTRACEPTION SURVEILLANCE (REPEAT RX) 10/25/2012 JOSE GARCIA MD V25.49 CONTRACEPTION SURVEILLANCE (REPEAT RX) 10/25/2012 KATELYN PATEL APRN V25.49 CONTRACEPTION SURVEILLANCE (REPEAT RX) 10/25/2012 MAURI INIGUEZ DO V25.49 CONTRACEPTION SURVEILLANCE (REPEAT RX) 10/25/2012 JOY OCONONR APRN V25.49 CONTRACEPTION SURVEILLANCE (REPEAT RX) 10/25/2012 INIGUEZ MAURI NG V25.49 CONTRACEPTION SURVEILLANCE (REPEAT RX) 10/25/2012 KATELYN PATEL APRN V25.49 CONTRACEPTION SURVEILLANCE (REPEAT RX) 10/25/2012 MAURI INIGUEZ DO V25.49 CONTRACEPTION SURVEILLANCE (REPEAT RX) 10/25/2012 NUVIA MULTANI V25.49 CONTRACEPTION SURVEILLANCE (REPEAT RX) 10/25/2012 MAURI INIGUEZ DO V25.49 CONTRACEPTION SURVEILLANCE (REPEAT RX) 10/25/2012 NUVIA MULTANI V25.49 CONTRACEPTION SURVEILLANCE (REPEAT RX) 10/25/2012 NUVIA MULTANI V25.49 CONTRACEPTION SURVEILLANCE (REPEAT RX) 10/25/2012 MAURI INIGUEZ DO V25.49 CONTRACEPTION SURVEILLANCE (REPEAT RX) 10/25/2012 NUVIA MULTANI V25.49 CONTRACEPTION SURVEILLANCE (REPEAT RX) 01/24/2013 296.80 MO BIPOLAR NOS 01/24/2013 296.80 MO BIPOLAR NOS 01/24/2013 JOY OCONNOR APRN A 296.80 MO BIPOLAR NOS 01/24/2013 MAURI NG K 296.80 MO BIPOLAR NOS 01/24/2013 REHAN TEJADA APRN 296.80 MO BIPOLAR NOS 01/24/2013 GREGG PERALTA APRN 296.80 MO BIPOLAR NOS 01/24/2013 MAURI INIGUEZ DO K 296.80 MO BIPOLAR NOS 01/24/2013 RYAN SANTOS APRN 296.80 MO BIPOLAR NOS 01/24/2013 KATELYN PATEL APRN 296.80 MO BIPOLAR NOS 01/24/2013 INIGUEZ MAURI NG K 296.80 MO BIPOLAR NOS 01/24/2013 ARABELLA ERIC APRN 296.80 MO BIPOLAR NOS 01/24/2013 JOSE GARCIA MD 296.80 MO BIPOLAR NOS 01/24/2013 KATELYN PATEL APRN 296.80 MO BIPOLAR NOS 01/24/2013 INIGUEZ DO, MAURI K 296.80 MO BIPOLAR NOS 01/24/2013 ZEE OCONNOR APRNIDI A 296.80 MO BIPOLAR NOS 01/24/2013 INIGUEZ DO, MAURI K 296.80 MO BIPOLAR NOS 01/24/2013 JORGE DU KATELYN SHARON 296.80 MO BIPOLAR NOS 01/24/2013 INIGUEZ DO, MAURI K 296.80 MO BIPOLAR NOS 01/24/2013 JO B2B SALES MANAGER, NUVIA M 296.80 MO BIPOLAR NOS 01/24/2013 INIGUEZ DO, MAURI K 296.80 MO BIPOLAR NOS 01/24/2013 JO B2B SALES MANAGER, NUVIA M 296.80 MO BIPOLAR NOS 01/24/2013 JO B2B SALES MANAGER, NUVIA M 296.80 MO BIPOLAR NOS 01/24/2013 INIGUEZ DO, MAURI K 296.80 MO BIPOLAR NOS 01/24/2013 JO B2B SALES MANAGER, NUVIA M 296.80 MO BIPOLAR NOS 02/22/2013 300.00 AN ANXIETY UNSPEC 02/22/2013 JOY OCONNOR APRN A 300.00 AN ANXIETY UNSPEC 02/22/2013 INIGUEZ DO, MAURI K 300.00 AN ANXIETY UNSPEC 02/22/2013 REHAN TEJADA APRN 300.00 AN ANXIETY UNSPEC 02/22/2013 GREGG PERALTA APRN 300.00 AN ANXIETY UNSPEC 02/22/2013 ELDON INIGUEZ DOA K 300.00 AN ANXIETY UNSPEC 02/22/2013 RYAN SANTOS APRN 300.00 AN ANXIETY UNSPEC 02/22/2013 KATELYN PATEL APRN 300.00 AN ANXIETY UNSPEC 02/22/2013 GEETHA DOELDONA K 300.00 AN ANXIETY UNSPEC 02/22/2013 ARABELLA ERIC APRN A 300.00 AN ANXIETY UNSPEC 02/22/2013 JOSE GARCIA MD 300.00 AN ANXIETY UNSPEC 02/22/2013 KATELYN PATEL APRN 300.00 AN ANXIETY UNSPEC 02/22/2013 ELDON INIGUEZ DOA K 300.00 AN ANXIETY UNSPEC 02/22/2013 JOY OCONNOR APRN A 300.00 AN ANXIETY UNSPEC 02/22/2013 INIGUEZ DOELDONA K 300.00 AN ANXIETY UNSPEC 02/22/2013 KATELYN PATEL APRN 300.00 AN ANXIETY UNSPEC 02/22/2013 INIGUEZ DO, MAURI K 300.00 AN ANXIETY UNSPEC 02/22/2013 JO B2B SALES MANAGER, NUVIA M 300.00 AN ANXIETY UNSPEC 02/22/2013 INIGUEZ DO, MAURI K 300.00 AN ANXIETY UNSPEC 02/22/2013 JO B2B SALES MANAGER, NUVIA M 300.00 AN ANXIETY UNSPEC 02/22/2013 JO B2B SALES MANAGER, NUVIA M 300.00 AN ANXIETY UNSPEC 02/22/2013 INIGUEZ DO, MAURI K 300.00 AN ANXIETY UNSPEC 02/22/2013 JO B2B SALES MANAGER, NUVIA M 300.00 AN ANXIETY UNSPEC 05/30/2013 ANASTASIA DU, JOY A 788.1 DYSURIA 05/30/2013 INIGUEZ DO, MAURI K 788.1 DYSURIA 05/30/2013 REHAN TEJADA APRN 788.1 DYSURIA 05/30/2013 GREGG PERALTA APRN 788.1 DYSURIA 05/30/2013 INIGUEZ DO, MAURI K 788.1 DYSURIA 05/30/2013 RYAN SANTOS APRN 788.1 DYSURIA 05/30/2013 KATELYN PATEL APRN 788.1 DYSURIA 05/30/2013 INIGUEZ DO, MAURI K 788.1 DYSURIA 05/30/2013 ARABELLA ERIC APRN A 788.1 DYSURIA 05/30/2013 JOSE GARCIA MD 788.1 DYSURIA 05/30/2013 KATELYN PATEL APRN 788.1 DYSURIA 05/30/2013 INIGUEZ DO, MAURI K 788.1 DYSURIA 05/30/2013 JOY OCONNOR APRN A 788.1 DYSURIA 05/30/2013 INIGUEZ DO, MAURI K 788.1 DYSURIA 05/30/2013 KATELYN PATEL APRN 788.1 DYSURIA 05/30/2013 INIGUEZ DO, MAURI K 788.1 DYSURIA 05/30/2013 NUVIA MULTANI 788.1 DYSURIA 05/30/2013 INIGUEZ DO, MAURI K 788.1 DYSURIA 05/30/2013 NUVIA MULTANI M 788.1 DYSURIA 05/30/2013 NUVIA MULTANI M 788.1 DYSURIA 05/30/2013 INIGUEZ DO, MAURI K 788.1 DYSURIA 05/30/2013 JO GERMANNUVIA 788.1 DYSURIA 06/14/2013 INIGUEZ DO, MAURI K 783.21 WEIGHT LOSS 06/14/2013 INIGUEZ DO, MAURI K V20.2 WELL CHILD 06/14/2013 TONGREHAN WOLF APRN 783.21 WEIGHT LOSS 06/14/2013 TONGREHAN WOLF APRN V20.2 WELL CHILD 06/14/2013 GREGG PERALTA APRN T 783.21 WEIGHT LOSS 06/14/2013 GREGG PERALTA APRN V20.2 WELL CHILD 06/14/2013 INIGUEZ DO, MAURI K 783.21 WEIGHT LOSS 06/14/2013 INIGUEZ DO, MAURI K V20.2 WELL CHILD 06/14/2013 OLI SANTOS APRNIA R 783.21 WEIGHT LOSS 06/14/2013 REGAN SANTOS APRNRICIA R V20.2 WELL CHILD 06/14/2013 KATELYN PATEL APRN 783.21 WEIGHT LOSS 06/14/2013 KATELYN PATEL APRN V20.2 WELL CHILD 06/14/2013 INIGUEZ DO, MAURI K 783.21 WEIGHT LOSS 06/14/2013 INIGUEZ DO, MAURI K V20.2 WELL CHILD 06/14/2013 HERNESTO DU ARABELLA A 783.21 WEIGHT LOSS 06/14/2013 HERNESTO DU ARABELLA A V20.2 WELL CHILD 06/14/2013 RADHA ALANIS, JOSE Sosa 783.21 WEIGHT LOSS 06/14/2013 JOSE GARCIA MD V20.2 WELL CHILD 06/14/2013 JORGE DU KATELYN SHARON 783.21 WEIGHT LOSS 06/14/2013 JORGE DU KATELYN SHARON V20.2 WELL CHILD 06/14/2013 INIGUEZ DO, MAURI K 783.21 WEIGHT LOSS 06/14/2013 INIGUEZ DO, MAURI K V20.2 WELL CHILD 06/14/2013 ANASTASIA DU, JOY A 783.21 WEIGHT LOSS 06/14/2013 ANASTASIA DU, JOY A V20.2 WELL CHILD 06/14/2013 INIGUEZ DO, MAURI K 783.21 WEIGHT LOSS 06/14/2013 INIGUEZ DO, MAURI K V20.2 WELL CHILD 06/14/2013 JORGE LOPEZNKATELYN 783.21 WEIGHT LOSS 06/14/2013 JORGE ANA LAURAKATELYN V20.2 WELL CHILD 06/14/2013 INIGUEZ DO, MAURI K 783.21 WEIGHT LOSS 06/14/2013 INIGUEZ DO, MAURI K V20.2 WELL CHILD 06/14/2013 JO PORTER, NUVIA M 783.21 WEIGHT LOSS 06/14/2013 JO B2B SALES MANAGER, NUVIA M V20.2 WELL CHILD 06/14/2013 INIGUEZ DO, MAURI K 783.21 WEIGHT LOSS 06/14/2013 INIGUEZ DO, MAURI K V20.2 WELL CHILD 06/14/2013 JO B2B SALES MANAGER, NUVIA M 783.21 WEIGHT LOSS 06/14/2013 JO B2B SALES MANAGER, NUVIA M V20.2 WELL CHILD 06/14/2013 JO B2B SALES MANAGER, NUVIA M 783.21 WEIGHT LOSS 06/14/2013 JO PORTER, NUVIA M V20.2 WELL CHILD 06/14/2013 INIGUEZ DO, MAURI K 783.21 WEIGHT LOSS 06/14/2013 INIGUEZ DO, MAURI K V20.2 WELL CHILD 06/14/2013 JO B2B SALES MANAGER, NUVIA M 783.21 WEIGHT LOSS 06/14/2013 JO PORTER, NUVIA M V20.2 WELL CHILD 06/29/2013 GREGG PERALTA APRN 462 PHARYNGITIS ACUTE 06/29/2013 INIGUEZ DO, MAURI K 462 PHARYNGITIS ACUTE 06/29/2013 RYAN SANTOS APRN 462 PHARYNGITIS ACUTE 06/29/2013 JORGE DU KATELYN HERRERA 462 PHARYNGITIS ACUTE 06/29/2013 INIGUEZ DO, MAURI K 462 PHARYNGITIS ACUTE 06/29/2013 ARABELLA ERIC APRN 462 PHARYNGITIS ACUTE 06/29/2013 JOSE GARCIA MD 462 PHARYNGITIS ACUTE 06/29/2013 JORGE DU KATELYN SHARON 462 PHARYNGITIS ACUTE 06/29/2013 INIGUEZ DO, MAURI K 462 PHARYNGITIS ACUTE 06/29/2013 JOY OCONNOR APRN 462 PHARYNGITIS ACUTE 06/29/2013 INIGUEZ DO, MAURI K 462 PHARYNGITIS ACUTE 06/29/2013 JORGE DU KATELYN HERRERA 462 PHARYNGITIS ACUTE 06/29/2013 INIGUEZ DO, MAURI K 462 PHARYNGITIS ACUTE 06/29/2013 JO B2B SALES MANAGER, NUVIA M 462 PHARYNGITIS ACUTE 06/29/2013 INIGUEZ DO, MAURI K 462 PHARYNGITIS ACUTE 06/29/2013 JO B2B SALES MANAGER, NUVIA M 462 PHARYNGITIS ACUTE 06/29/2013 JO B2B SALES MANAGER, NUVIA M 462 PHARYNGITIS ACUTE 06/29/2013 INIGUEZ DO, MAURI K 462 PHARYNGITIS ACUTE 06/29/2013 JO PORTER, NUVIA M 462 PHARYNGITIS ACUTE 08/04/2013 REGAN SANTOS APRNRICIA R 780.4 DIZZINESS AND GIDDINESS 08/04/2013 REGAN SANTOS APRNRICIA R 787.02 NAUSEA ALONE 08/04/2013 JORGE DU KATELYN HERRERA 780.4 DIZZINESS AND GIDDINESS 08/04/2013 JORGE DU KATELYN SHARON 787.02 NAUSEA ALONE 08/04/2013 INIGUEZ DO, MAURI K 780.4 DIZZINESS AND GIDDINESS 08/04/2013 INIGUEZ DO, MAURI K 787.02 NAUSEA ALONE 08/04/2013 HERNESTO DU ARABELLA A 780.4 DIZZINESS AND GIDDINESS 08/04/2013 HERNESTO DU ARABELLA A 787.02 NAUSEA ALONE 08/04/2013 JOSE GARCIA MD N 780.4 DIZZINESS AND GIDDINESS 08/04/2013 JOSE GARCIA MD N 787.02 NAUSEA ALONE 08/04/2013 JORGE DU KATELYN SHARON 780.4 DIZZINESS AND GIDDINESS 08/04/2013 JORGE DU KATELYN SHARON 787.02 NAUSEA ALONE 08/04/2013 INIGUEZ DO, MAURI K 780.4 DIZZINESS AND GIDDINESS 08/04/2013 INIGUEZ DO, MAURI K 787.02 NAUSEA ALONE 08/04/2013 ANASTASIA DU JOY A 780.4 DIZZINESS AND GIDDINESS 08/04/2013 ANASTASIA DU JOY A 787.02 NAUSEA ALONE 08/04/2013 INIGUEZ DO, MAURI K 780.4 DIZZINESS AND GIDDINESS 08/04/2013 INIGUEZ DO, MAURI K 787.02 NAUSEA ALONE 08/04/2013 PATEL APRN, KATELYN HERRERA 780.4 DIZZINESS AND GIDDINESS 08/04/2013 PATELGIOVANNY DU KATELYN HERRERA 787.02 NAUSEA ALONE 08/04/2013 INIGUEZ DO, MAURI K 780.4 DIZZINESS AND GIDDINESS 08/04/2013 INIGUEZ DO, MAURI K 787.02 NAUSEA ALONE 08/04/2013 JO B2B SALES MANAGERNUVIA M 780.4 DIZZINESS AND GIDDINESS 08/04/2013 JO B2B SALES MANAGER, NUVIA M 787.02 NAUSEA ALONE 08/04/2013 INIGUEZ DO, MAURI K 780.4 DIZZINESS AND GIDDINESS 08/04/2013 INIGUEZ DO, MAURI K 787.02 NAUSEA ALONE 08/04/2013 JO B2B SALES MANAGERNUVIA M 780.4 DIZZINESS AND GIDDINESS 08/04/2013 JO B2B SALES MANAGERNUVIA M 787.02 NAUSEA ALONE 08/04/2013 JO B2B SALES MANAGERNUVIA M 780.4 DIZZINESS AND GIDDINESS 08/04/2013 JO B2B SALES MANAGERNUVIA M 787.02 NAUSEA ALONE 08/04/2013 INIGUEZ DO, MAURI K 780.4 DIZZINESS AND GIDDINESS 08/04/2013 INIGUEZ DO, MAURI K 787.02 NAUSEA ALONE 08/04/2013 JO B2B SALES MANAGER, NUVIA M 780.4 DIZZINESS AND GIDDINESS 08/04/2013 JO B2B SALES MANAGER, NUVIA M 787.02 NAUSEA ALONE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
--- NOTE | 2018-01-25 20:06 | ED Integumentary General ---
General Stated Complaint: MASTITIS Source: patient Exam Limitations: no limitations History of Present Illness Date Seen by Provider: January 25, 2018 Time Seen by Provider: 20:01 Initial Comments To ER with reports of possible mastitis. She states that yesterday she developed some left breast tenderness and redness. She is breast-feeding, her child is now 15 months old and has been tapering off of breast milk. 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 She had some tenderness at the end of the day, this morning awakened with some redness to the left breast tenderness. No fevers or chills. She is still able to manually express milk from the breast but does feel clogged. Timing/Duration: this morning, getting worse Severity: moderate Associated Symptoms: No fever Allergies and Home Medications Allergies Coded Allergies: No Known Drug Allergies (Unverified , 06/21/16) Home Medications Docusate Sodium 100 Mg Capsule, 100 MG PO BID PRN for CONSTIPATION Prescribed by: YEIMI KHAN on 11/10/16 1520 Hydrocodone Bit/Acetaminophen 1 Each Tablet, 1-2 TAB PO Q4H PRN for MODERATE PAIN Prescribed by: YEIMI KHAN on 11/10/16 1520 Ibuprofen 600 Mg Tablet, 600 MG PO Q6H Prescribed by: YEIMI KHAN on 11/10/16 1520 Vit W-Ca,Fe,FA(<1 mg) 1 Each Tablet, 1 EACH PO DAILY, (Reported) Patient Home Medication List Home Medication List Reviewed: Yes Constitutional: see HPI; No chills, No fever EENTM: see HPI Respiratory: no symptoms reported Cardiovascular: no symptoms reported Genitourinary: no symptoms reported Musculoskeletal: no symptoms reported Skin: see HPI Psychiatric/Neurological: No Symptoms Reported Endocrine: No Symptoms Reported Past Naexcsi-Tnufxt-Oqbmzp Hx Patient Social History Recent Foreign Travel: No Contact w/Someone Who Travel: No Recent Hopitalizations: No Immunizations Up To Date PED Vaccines UTD: No Date of Influenza Vaccine: Sep 09, 2016 Seasonal Allergies Seasonal Allergies: No Past Medical History Surgeries: Yes (cyst and mole removal ) Respiratory: Yes (albuterol) Asthma Cardiac: No Neurological: No Reproductive Disorders: No Sexually Transmitted Disease: No HIV/AIDS: No Genitourinary: No Gastrointestinal: No Musculoskeletal: No Endocrine: No HEENT: No Cancer: No Psychosocial: Yes Anxiety, Depression Integumentary: No Blood Disorders: No Adverse Reaction/Blood Tranf: No (N/a) Family Medical History No Pertinent Family Hx Physical Exam Vital Signs Capillary Refill : General Appearance: WD/WN, no apparent distress HEENT: PERRL/EOMI, normal ENT inspection Neck: non-tender, full range of motion Respiratory: no respiratory distress, no accessory muscle use Gastrointestinal: normal bowel sounds, non tender, soft Extremities: normal range of motion, non-tender Neurologic/Psychiatric: alert, normal mood/affect, oriented x 3 Skin: normal color, warm/dry, other (There is some erythema to the superior lateral aspect of the breast from about the 12:00 to 3:00 position extending cranially up to the axilla. There is no induration, no fluctuant abscess) Skin Problem Character: erythema Progress/Results/Core Measures Results/Orders My Orders Orders - AMERICA MONTOYA APRN Ceftriaxone Injection (Rocephin Injectio (01/25/18 20:00) Lidocaine 1% (Xylocaine 1%) (01/25/18 20:00) Departure Impression Primary Impression: Mastitis Disposition: 01 HOME, SELF-CARE Condition: Stable Departure-Patient Inst. Decision time for Depature: 20:04 Referrals: JOSE SUAREZ MD (PCP/Family) Primary Care Physician Patient Instructions: Mastitis Add. Discharge Instructions: Called Dr. Suarez tomorrow to make an appointment to be seen Preferably this week for follow-up, next week if they cannot schedule you this week. Return to ER for any worsening redness, fevers or other concerns. Scripts Cephalexin (Cephalexin) 500 Mg Capsule 500 MG PO QID, #28 CAP Prov: AMERICA MONTOYA APRN 01/25/18 AMERICA MONTOYA APRN January 25, 2018 20:06
[2018-01-25 20:20] VITALS: BP 127/87
== END 2018-01-25 20:19 | disposition home or self-care (01) ==
LOC: EDUNIT# 19:52 → ER 19:54
DX: N61.0 Mastitis without abscess (principal); J45.909 Unspecified asthma, uncomplicated; F41.9 Anxiety disorder, unspecified; F32.9 Major depressive disorder, single episode, unspecified
CPT/HCPCS: 96372; 99284

== ENCOUNTER 2018-03-28 09:29 | Emergency (ER) | payer MEDICAID ==
[~2018-03-28] VITALS: Ht 162.6 cm; Wt 52.2 kg
[~2018-03-28 09:29] MED LIST changes: +CEPH500C PO; +SERT50TA9
--- NOTE | 2018-03-28 09:44 | ED Abdominal Pain ---
General Chief Complaint: Abdominal/GI Problems Stated Complaint: STOMACH PAIN/BLOOD IN STOOL Source of Information: Patient Exam Limitations: No Limitations History of Present Illness Date Seen by Provider: Mar 28, 2018 Time Seen by Provider: 09:35 Initial Comments The patient presents to the ER by private conveyance with a chief complaint that for the past 4 days now she's been experiencing some achy abdominal pain across the midline left and right that radiates down below the belly button sometimes. She says she is not having any painful urination fevers chills but she does have some occasional nausea. She's had several loose stools but she says she still strains to try and have a bowel movement. She has not used any laxatives. She does not have a history of irritable bowel syndrome with her mother has suggested that she might with her long history of this. She is on Depo-Provera . She notices a little bit of blood on wiping today. She is not having any pain in her anus. Allergies and Home Medications Allergies Coded Allergies: No Known Drug Allergies (Unverified , 06/21/16) Home Medications Cephalexin 500 Mg Capsule, 500 MG PO QID Prescribed by: AMERICA MONTOYA on 01/25/182004 Patient Home Medication List Home Medication List Reviewed: Yes Review of Systems Constitutional: No chills, No diaphoresis, No fever, No malaise EENTM: No Blurred Vision, No Double Vision Respiratory: Denies Cough, Denies Shortness of Air Cardiovascular: Denies Chest Pain, Denies Lightheadedness Gastrointestinal: Constipated, Diarrhea, Nausea; Denies Poor Fluid Intake; Rectal Bleeding; Denies Vomiting Genitourinary: Denies Burning Musculoskeletal: No back pain, No joint pain Skin: No pruritus, No rash Past Ajqrtli-Sorukb-Ariedk Hx Patient Social History Alcohol Use: Denies Use Recreational Drug Use: No Smoking Status: Never a Smoker 2nd Hand Smoke Exposure: No Recent Foreign Travel: No Contact w/Someone Who Travel: No Recent Hopitalizations: No Immunizations Up To Date PED Vaccines UTD: No Date of Influenza Vaccine: Sep 09, 2016 Seasonal Allergies Seasonal Allergies: No Past Medical History Surgeries: Yes (cyst and mole removal ) Section Respiratory: Yes Asthma Cardiac: No Neurological: No Reproductive Disorders: No Sexually Transmitted Disease: No HIV/AIDS: No Genitourinary: No Gastrointestinal: No Musculoskeletal: No Endocrine: No HEENT: No Cancer: No Psychosocial: Yes Anxiety, Depression Integumentary: No Blood Disorders: No Adverse Reaction/Blood Tranf: No (N/a) Family Medical History No Pertinent Family Hx Physical Exam Vital Signs Vital Signs - First Documented 03/28/18 09:33 Temp 95.7 Pulse 73 Resp 18 B/P (MAP) 126/84 (98) Pulse Ox 97 O2 Delivery Room Air Capillary Refill : Height/Weight/BMI Height: 5', 4.00" Weight: 115lbs 0oz, [id number] Method:Stated ,26.0BMI General Appearance: WD/WN, no apparent distress HEENT: PERRL/EOMI, pharynx normal Respiratory: no respiratory distress, no accessory muscle use Cardiovascular: normal peripheral pulses, regular rate, rhythm Peripheral Pulses: 2+ Radial Pulses (R), 2+ Radial Pulses (L) Gastrointestinal: normal bowel sounds, soft, no organomegaly; No rebound; tenderness (mild diffuse), other (negative for Haney sign or tenderness over McBurney's point. No psoas sign or other mesenteric signs.) Extremities: normal range of motion, non-tender, normal inspection, no pedal edema, normal capillary refill Neurologic/Psychiatric: alert, normal mood/affect, oriented x 3 Skin: normal color, warm/dry Progress/Results/Core Measures Results/Orders Lab Results Laboratory Tests Test 03/28/18 09:42 03/28/18 09:57 Range/Units Urine Color YELLOW Urine Clarity VERY CLOUDY H Urine pH 6 5-9 Urine Specific [place] 1.025 H 1.016-1.022 Urine Protein 1+ H NEGATIVE Urine Glucose (UA) NEGATIVE NEGATIVE Urine Ketones 2+ H NEGATIVE Urine Nitrite NEGATIVE NEGATIVE Urine Bilirubin NEGATIVE NEGATIVE Urine Urobilinogen NORMAL NORMAL MG/DL Urine Leukocyte Esterase 2+ H NEGATIVE Urine RBC (Auto) 3+ H NEGATIVE Urine RBC 0-2 /HPF Urine WBC 5-10 H /HPF Urine Squamous Epithelial Cells 10-25 H /HPF Urine Crystals PRESENT H /LPF Urine Calcium Oxalate Crystals FEW H /LPF Urine Bacteria MODERATE H /HPF Urine Casts NONE /LPF Urine Mucus NEGATIVE /LPF Urine Culture Indicated YES Urine Test NEGATIVE NEGATIVE White Blood Count 11.1 H 4.3-11.0 10^3/uL Red Blood Count 4.72 4.35-5.85 10^6/uL Hemoglobin 15.3 11.5-16.0 G/DL Hematocrit 42 35-52 % Mean Corpuscular Volume 89 80-99 FL Mean Corpuscular Hemoglobin 32 25-34 PG Mean Corpuscular Hemoglobin Concent 36 32-36 G/DL Red Cell Distribution Width 12.3 10.0-14.5 % Platelet Count 330 130-400 10^3/uL Mean Platelet Volume 8.9 7.4-10.4 FL Neutrophils (%) (Auto) 73 42-75 % Lymphocytes (%) (Auto) 19 12-44 % Monocytes (%) (Auto) 7 0-12 % Eosinophils (%) (Auto) 1 0-10 % Basophils (%) (Auto) 1 0-10 % Neutrophils # (Auto) 8.2 H 1.8-7.8 X 10^3 Lymphocytes # (Auto) 2.1 1.0-4.0 X 10^3 Monocytes # (Auto) 0.7 0.0-1.0 X 10^3 Eosinophils # (Auto) 0.1 0.0-0.3 10^3/uL Basophils # (Auto) 0.1 0.0-0.1 10^3/uL Sodium Level 142 135-145 MMOL/L Potassium Level 3.8 3.6-5.0 MMOL/L Chloride Level 108 H 98-107 MMOL/L Carbon Dioxide Level 22 21-32 MMOL/L Anion Gap 12 5-14 MMOL/L Blood Urea Nitrogen 8 7-18 MG/DL Creatinine 0.77 0.60-1.30 MG/DL Estimat Glomerular Filtration Rate > 60 BUN/Creatinine Ratio 10 Glucose Level 82 70-105 MG/DL Calcium Level 9.5 8.5-10.1 MG/DL Total Bilirubin 0.5 0.1-1.0 MG/DL Aspartate Amino Transf (AST/SGOT) 18 5-34 U/L Alanine Aminotransferase (ALT/SGPT) 17 0-55 U/L Alkaline Phosphatase 113 40-136 U/L Total Protein 7.9 6.4-8.2 GM/DL Albumin 4.8 H 3.2-4.5 GM/DL My Orders Orders - DADA QUIGLEY Cbc With Automated Diff (03/28/18 09:40) Comprehensive Metabolic Panel (03/28/18 09:40) Ua Culture If Indicated (03/28/18 09:40) Abdomen/Kub 1view (03/28/18 09:40) Ketorolac Injection (Toradol Injection) (03/28/18 09:45) Hcg,Qualitative Urine (03/28/18 09:46) Urine Culture (03/28/18 09:42) Medications Given in ED Current Medications Medications Dose Ordered Sig/Fredy Route Start Time Stop Time Status Last Admin Dose Admin Ketorolac Tromethamine 15 mg ONCE ONCE IM 03/28/18 09:45 03/28/18 09:46 DC 03/28/18 10:19 15 MG Vital Signs/I&O 03/28/18 09:33 Temp 95.7 Pulse 73 Resp 18 B/P (MAP) 126/84 (98) Pulse Ox 97 O2 Delivery Room Air Progress Progress Note #1: Time: 09:51 Progress Note Patient describes sweats likely constipation with enlarged hemorrhoid as a source for her bleeding. We discussed the possibility of going home some MiraLAX Tylenol Motrin and have him clean out and we also gave her the option to work her up a little more. Her vital signs are totally normal and the patient 's having quite a bit of anxiety over this so we'll go ahead and obtain a urinalysis hCG and basic set of labs. We'll get a 1 view flat plate of her abdomen and if everything is consistent with her initial diagnosis we'll let her go home with MiraLAX. Progress Note #2: Time: 10:24 Progress Note Contaminated urine sample without nitrite positive but her white count is on the upper end of normal and she is having some nonspecific abdominal discomfort so we will start Macrobid. 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 Diagnostic Imaging Diagonstic Imaging: Xray Plain Films/CT/US/NM/MRI: abdomen (one view KUB) Comments Modest amount of stool in the colon. Nonspecific bowel gas patterns. No obvious ileus or obstruction. Reviewed: Reviewed by Me Departure Impression Primary Impression: Constipation Qualified Codes: K59.00 - Constipation, unspecified Additional Impressions: Bleeding hemorrhoids UTI (urinary tract infection) Qualified Codes: N30.00 - Acute cystitis without hematuria Disposition: HOME, SELF-CARE Condition: Stable Departure-Patient Inst. Decision time for Depature: 10:25 Referrals: JOSE GARCIA MD (PCP/Family) Primary Care Physician Patient Instructions: Acute Cystitis (DC), Constipation, Adult (DC) Add. Discharge Instructions: Drink lots of water. Avoid caffeine. It up a bottle of MiraLAX and mix 1 capful in 6-8 ounces of fluids and drink once a day until you have had copious loose stools. 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 If you develop fever, nausea and vomiting, severe abdominal pain or other worrisome symptoms return to your doctor sooner for reevaluation. Consider follow-up with your primary care provider as needed. If you have discomfort you can use Tylenol 1000 mg every 8 hours in addition to ibuprofen 800 mg every 8 hours. All discharge instructions reviewed with patient and/or family. Voiced understanding. Scripts Nitrofurantoin Monohyd/M-Cryst (Macrobid 100 mg Capsule) 100 Mg Capsule 1 TAB PO BID for 7 Days, #14 CAP 0 Refills Prov: DADA QUIGLEY 03/28/18 Polyethylene Glycol 3350 (Miralax) 17 Gm Powd.pack 17 GM PO DAILY PRN PRN for CONSTIPATION-1ST LINE for 3 Days, #1 EACH 0 Refills Prov: DADA QUIGLEY 03/28/18 Work/School Note: Work Release Form Date Seen in the Emergency Department: Mar 28, 2018 Return to Work: Mar 29, 2018 Restrictions: No Restrictions Copy Copies To 1: MAURI INIGUEZ TITUS J Mar 28, 2018 09:44
[2018-03-28] MEDS ORDERED: KETOROLAC 30 MG/ML VIAL IM ONE (09:45)
[2018-03-28 09:53] LABS: BILIRUBIN,URINE NEGATIVE (NEGATIVE); CLARITY,URINE VERY CLOUDY; COLOR,URINE YELLOW; GLUCOSE, URINE (UA) NEGATIVE (NEGATIVE); KETONES,URINE 2+ (NEGATIVE); LEUKOCYTE ESTERASE ,URINE 2+ (NEGATIVE); NITRITE,URINE NEGATIVE (NEGATIVE); PH,URINE 6 (5-9); PROTEIN,URINE 1+ (NEGATIVE); UROBILINOGEN,URINE NORMAL (NORMAL)
[2018-03-28 10:03] LABS: BASOPHILS # (AUTO) 0.1 10^3/uL (0.0-0.1); BASOPHILS % (AUTO) 1 % (0-10); EOSINOPHILS # (AUTO) 0.1 10^3/uL (0.0-0.3); EOSINOPHILS % (AUTO) 1 % (0-10); HEMATOCRIT 42 % (35-52); HEMOGLOBIN 15.3 G/DL (11.5-16.0); LYMPHOCYTES # (AUTO) 2.1 X 10^3 (1.0-4.0); LYMPHOCYTES % (AUTO) 19 % (12-44); MEAN CORPUSCULAR HEMOGLOBIN 32 PG (25-34); MEAN CORPUSCULAR HGB CONC 36 G/DL (32-36); MEAN CORPUSCULAR VOLUME 89 FL (80-99); MEAN PLATELET VOLUME 8.9 FL (7.4-10.4); MONOCYTES # (AUTO) 0.7 X 10^3 (0.0-1.0); MONOCYTES % (AUTO) 7 % (0-12); NEUTROPHILS # (AUTO) 8.2 X 10^3 (1.8-7.8); NEUTROPHILS % (AUTO) 73 % (42-75); PLATELET COUNT 330 10^3/uL (130-400); RED BLOOD COUNT 4.72 10^6/uL (4.35-5.85); RED CELL DISTRIBUTION WIDTH 12.3 % (10.0-14.5); WHITE BLOOD COUNT 11.1 10^3/uL (4.3-11.0)
[2018-03-28 10:05] LABS: BACTERIA,URINE MODERATE /HPF; RBC,URINE 0-2 /HPF
[2018-03-28 10:06] LABS: CALCIUM OXALATE CRYSTALS,UR FEW /LPF
[2018-03-28 10:22] LABS: ALANINE AMINOTRANSFERASE 17 U/L (0-55); ALBUMIN 4.8 GM/DL (3.2-4.5); ALKALINE PHOSPHATASE 113 U/L (40-136); BILIRUBIN,TOTAL 0.5 MG/DL (0.1-1.0); BUN/CREATININE RATIO 10; CALCIUM 9.5 MG/DL (8.5-10.1); CARBON DIOXIDE 22 MMOL/L (21-32); CHLORIDE 108 MMOL/L (98-107); CREATININE SERUM 0.77 MG/DL (0.60-1.30); GFR ESTIMATED > 60; GLUCOSE 82 MG/DL (70-105); POTASSIUM 3.8 MMOL/L (3.6-5.0); SODIUM 142 MMOL/L (135-145); TOTAL PROTEIN 7.9 GM/DL (6.4-8.2)
--- NOTE | 2018-03-28 10:24 | Diagnostic Imaging Report ---
EXAMINATION: Abdominal radiographs, single supine view, 2 images. DATE: 03/28/2018. CLINICAL INDICATION: 22-year-old female, abdominal pain. COMPARISON: None. COMMENTS: There is transitional lumbosacral anatomy. 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 L5 is labeled as having an enlarged left lateral mass which has a pseudoarticulation with S1. There are gas-filled segments of large bowel which are not abnormally distended. There are no abnormally distended gas-filled segments of small bowel. There is no identified free intraperitoneal air on supine assessment. There is no identified portal venous gas or pneumatosis. There is no identified abnormal radiodensity overlying the expected positions of the kidneys, ureters, or right lower quadrant. There is a pelvic calcification likely reflecting a phlebolith. IMPRESSION: 1. No identified acute abdominal radiographic abnormality. 2. Transitional lumbosacral anatomy, as labeled above. If spinal intervention is to be performed in the future, recommend careful correlation with levels. Dictated by: Dictated on workstation # [id number]
[2018-03-28] MEDS ORDERED: NITR-65 PO (10:29)
[2018-03-28] MEDS ORDERED: POLY17PO6 PO (10:29)
[2018-03-28 10:42] VITALS: BP 126/84
== END 2018-03-28 10:42 | disposition home or self-care (01) ==
LOC: EDUNIT# 09:29 → ER 09:30
DX: N39.0 Urinary tract infection, site not specified (principal); K59.00 Constipation, unspecified; K64.9 Unspecified hemorrhoids; J45.909 Unspecified asthma, uncomplicated; F41.9 Anxiety disorder, unspecified; F32.9 Major depressive disorder, single episode, unspecified; Z87.59 Personal history of other complications of pregnancy, childbirth and the puerperium
CPT/HCPCS: 36415; 74018; 80053; 81000; 84703; 85025; 87088; 96372

== ENCOUNTER 2019-08-05 07:03 | Emergency (ER) | payer MEDICAID ==
[~2019-08-05] VITALS: Ht 162.5 cm; Wt 61.4 kg
[~2019-08-05 07:03] MED LIST changes: +NITR-65 PO; +POLY17PO6 PO
[2019-08-05] MEDS ORDERED: LACTATED RINGERS 1,000 ML IV ONE (07:41)
[2019-08-05] MEDS ORDERED: ONDANSETRON 4 MG/2 ML (SDV) Z0FRAN IVP ONE (07:45)
[2019-08-05] MEDS ORDERED: KETOROLAC 30 MG/ML VIAL IVP ONE (07:45)
--- NOTE | 2019-08-05 07:46 | ED Abdominal Pain ---
General Stated Complaint: UPPER ABD/BACK PAIN Source of Information: Patient Exam Limitations: No Limitations History of Present Illness Date Seen by Provider: Aug 05, 2019 Time Seen by Provider: 07:27 Initial Comments The patient presents the ER by private conveyance with chief complaint that last night around 2230 she began to experience epigastric pain wrapping around bilateral sides into her back. She's having some nausea without vomiting. No diarrhea. She had a bowel movement yesterday was normal. She has had no fever, chills or sweats. She did not have anything at home to take for the pain or nausea. She did however have some leftover Flagyl from previously treated bacterial vaginitis and since she's been having some discharge she thought maybe asked what was so she took a dose of Flagyl. She has continued to feel worse. She had hung sandwich last night for dinner and nothing today. She's not having any dysuria or hematuria. No significant medical history. She had one on her abdomen. Allergies and Home Medications Allergies Coded Allergies: No Known Drug Allergies (Unverified , 06/21/16) Home Medications Cephalexin 500 Mg Capsule, 500 MG PO QID Prescribed by: AMERICA MONTOYA on 01/25/182004 Nitrofurantoin Monohyd/M-Cryst 100 Mg Capsule, 1 TAB PO BID Prescribed by: DADA QUIGLEY on 03/28/18 1029 Polyethylene Glycol 3350 17 Gm Powd.pack, 17 GM PO DAILY PRN PRN for CONSTIPATION-1ST LINE Prescribed by: DADA QUIGLEY on 03/28/18 1029 Patient Home Medication List Home Medication List Reviewed: Yes Review of Systems Review of Systems Constitutional: No chills, No diaphoresis, No fever, No malaise EENTM: No Blurred Vision, No Eye Pain Respiratory: Denies Cough, Denies Shortness of Air Cardiovascular: Denies Chest Pain, Denies Edema Gastrointestinal: See HPI, Abdominal Pain; Denies Constipated, Denies Diarrhea; Nausea, Poor Fluid Intake; Denies Vomiting Genitourinary: Denies Burning; Discharge Musculoskeletal: back pain; No joint pain Skin: No change in color, No pruritus Psychiatric/Neurological: Denies Anxiety, Denies Depressed Past Nbizcsf-Nvlvum-Wxfwrc Hx Patient Social History Alcohol Use: Denies Use Recreational Drug Use: No Smoking Status: Never a Smoker 2nd Hand Smoke Exposure: No Recent Hopitalizations: No Immunizations Up To Date PED Vaccines UTD: No Date of Influenza Vaccine: Sep 09, 2016 Seasonal Allergies Seasonal Allergies: No Past Medical History Surgeries: Yes (cyst and mole removal ) Section Respiratory: Yes Asthma Cardiac: No Neurological: No Reproductive Disorders: No Sexually Transmitted Disease: No HIV/AIDS: No Genitourinary: No Gastrointestinal: No Musculoskeletal: No Endocrine: No HEENT: No Cancer: No Psychosocial: Yes Anxiety, Depression Integumentary: No Blood Disorders: No Adverse Reaction/Blood Tranf: No (N/a) Family Medical History No Pertinent Family Hx Physical Exam Vital Signs Vital Signs - First Documented 08/05/19 07:22 Temp 36.4 Pulse 65 Resp 17 B/P (MAP) 127/88 (101) Pulse Ox 98 O2 Delivery Room Air Capillary Refill : Height/Weight/BMI Height: 5'4.00" Weight: 115lbs. 0oz. [id number]; 26.0 BMI Method:Stated General Appearance: WD/WN, no apparent distress HEENT: PERRL/EOMI, normal ENT inspection, TMs normal, pharynx normal Neck: non-tender, full range of motion, supple, normal inspection Respiratory: lungs clear, normal breath sounds, no respiratory distress, no accessory muscle use Cardiovascular: normal peripheral pulses, regular rate, rhythm, no edema Peripheral Pulses: 2+ Radial Pulses (R), 2+ Radial Pulses (L) Gastrointestinal: normal bowel sounds (quiescent), soft, no organomegaly, guarding (epigastric and right upper quadrant), tenderness (epigastric and right upper quadrant with a mildly positive Haney sign), other (negative for mesenteric or psoas signs) Back: normal inspection, no vertebral tenderness, CVA tenderness (R), CVA tenderness (L) Neurologic/Psychiatric: alert, normal mood/affect, oriented x 3 Skin: normal color, warm/dry Progress/Results/Core Measures Results/Orders Lab Results Laboratory Tests Test 08/05/19 07:47 08/05/19 07:54 Range/Units White Blood Count 10.6 4.3-11.0 10^3/uL Red Blood Count 4.70 4.35-5.85 10^6/uL Hemoglobin 14.9 11.5-16.0 G/DL Hematocrit 43 35-52 % Mean Corpuscular Volume 91 80-99 FL Mean Corpuscular Hemoglobin 32 25-34 PG Mean Corpuscular Hemoglobin Concent 35 32-36 G/DL Red Cell Distribution Width 12.1 10.0-14.5 % Platelet Count 406 H 130-400 10^3/uL Mean Platelet Volume 9.1 7.4-10.4 FL Neutrophils (%) (Auto) 79 H 42-75 % Lymphocytes (%) (Auto) 13 12-44 % Monocytes (%) (Auto) 8 0-12 % Eosinophils (%) (Auto) 1 0-10 % Basophils (%) (Auto) 0 0-10 % Neutrophils # (Auto) 8.3 H 1.8-7.8 X 10^3 Lymphocytes # (Auto) 1.3 1.0-4.0 X 10^3 Monocytes # (Auto) 0.8 0.0-1.0 X 10^3 Eosinophils # (Auto) 0.1 0.0-0.3 10^3/uL Basophils # (Auto) 0.0 0.0-0.1 10^3/uL Sodium Level 144 135-145 MMOL/L Potassium Level 3.7 3.6-5.0 MMOL/L Chloride Level 105 98-107 MMOL/L Carbon Dioxide Level 26 21-32 MMOL/L Anion Gap 13 5-14 MMOL/L Blood Urea Nitrogen 11 7-18 MG/DL Creatinine 0.89 0.60-1.30 MG/DL Estimat Glomerular Filtration Rate > 60 BUN/Creatinine Ratio 12 Glucose Level 94 70-105 MG/DL Calcium Level 9.5 8.5-10.1 MG/DL Corrected Calcium 8.5-10.1 MG/DL Total Bilirubin 0.5 0.1-1.0 MG/DL Aspartate Amino Transf (AST/SGOT) 18 5-34 U/L Alanine Aminotransferase (ALT/SGPT) 15 0-55 U/L Alkaline Phosphatase 107 40-136 U/L Total Protein 7.7 6.4-8.2 GM/DL Albumin 4.8 H 3.2-4.5 GM/DL Lipase 10 8-78 U/L Urine Color YELLOW Urine Clarity CLOUDY Urine pH 7.5 5-9 Urine Specific [place] 1.020 1.016-1.022 Urine Protein 1+ H NEGATIVE Urine Glucose (UA) NEGATIVE NEGATIVE Urine Ketones NEGATIVE NEGATIVE Urine Nitrite NEGATIVE NEGATIVE Urine Bilirubin NEGATIVE NEGATIVE Urine Urobilinogen 0.2 < = 1.0 MG/DL Urine Leukocyte Esterase TRACE NEGATIVE Urine RBC (Auto) TRACE-I NEGATIVE Urine RBC 5-10 H /HPF Urine WBC 10-25 H /HPF Urine Squamous Epithelial Cells 5-10 /HPF Urine Crystals PRESENT H /LPF Urine Amorphous Sediment FEW PHILIP PHOSPHATE H /LPF Urine Bacteria TRACE /HPF Urine Casts NONE /LPF Urine Mucus NEGATIVE /LPF Urine Culture Indicated YES My Orders Orders - DADA QUIGLEY Urine Bedside (08/05/19 07:04) Ua Culture If Indicated (08/05/19 07:04) Ed Iv/Invasive Line Start (08/05/19 07:38) Cbc With Automated Diff (08/05/19 07:38) Lipase (08/05/19 07:38) Comprehensive Metabolic Panel (08/05/19 07:38) Ondansetron Injection (Zofran Injectio (08/05/19 07:45) Ketorolac Injection (Toradol Injection) (08/05/19 07:45) Ed Iv/Invasive Line Start (08/05/19 07:41) Lactated Ringers (Lr 1000 Ml Iv Solution (08/05/19 07:41) Urine Culture (08/05/19 07:54) Ceftriaxone For Iv Use (Rocephin For I (08/05/19 08:15) Medications Given in ED Current Medications Medications Dose Ordered Sig/Fredy Route Start Time Stop Time Status Last Admin Dose Admin Ketorolac Tromethamine 30 mg ONCE ONCE IVP 08/05/19 07:45 08/05/19 07:46 DC 08/05/19 07:51 30 MG Lactated Ringer's 1,000 ml @ 0 mls/hr Q0M ONCE IV 08/05/19 07:41 08/05/19 07:42 DC 08/05/19 07:51 1,000 MLS/HR Ondansetron HCl 4 mg ONCE ONCE IVP 08/05/19 07:45 08/05/19 07:46 DC 08/05/19 07:51 4 MG Vital Signs/I&O 08/05/19 07:22 Temp 36.4 Pulse 65 Resp 17 B/P (MAP) 127/88 (101) Pulse Ox 98 O2 Delivery Room Air Progress Progress Note #1: Time: 07:46 Progress Note Start with some Toradol for her pain, Zofran for her nausea and obtain a urine specimen, labs. She has aseptic vital signs however her labs are off we can obtain ultrasound now or he can set up for outpatient of her right upper quadrant. She has some tenderness over her right costovertebral angles to percussion so if it looks more like a urinary infection then we will go down that route instead. Progress Note #2: Time: 08:18 Progress Note The patient's nausea is gone and her pain down to a dull ache. Suspect she may be developing pyelonephritis. Plan to put her on a gram or Rocephin and then Omnicef for outpatient management. We discussed management, return protocol and follow-up. She is in agreement with this plan. Departure Impression Primary Impression: Pyelonephritis Disposition: 01 HOME, SELF-CARE Condition: Improved Departure-Patient Inst. Decision time for Depature: 08:19 Referrals: JOSE GARCIA MD (PCP/Family) Primary Care Physician Patient Instructions: Kidney Infection (DC) Add. Discharge Instructions: It's important to drink a lot of fluids over the next several days to help flush out your kidneys. Caffeine is okay. Start taking the Omnicef tonight one capsule twice daily with food. Ondansetron one tablet under the tongue every 6 hours as needed for nausea or vomiting. Tylenol 1000 mg every 8 hours as needed pain. Ibuprofen 800 mg every 8 hours as needed for pain. If your symptoms are not improving in 2-3 days or if you start to develop fevers above 102 then you need to return to your primary care doctor or the ER for further evaluation. Scripts Ondansetron (Ondansetron Odt) 4 Mg Tab.rapdis 4 MG PO Q6H PRN for NAUSEA/VOMITING, #8 TAB 0 Refills Prov: DADA QUIGLEY 08/05/19 Cefdinir (Cefdinir) 300 Mg Capsule 300 MG PO BID for 7 Days, #14 CAP 0 Refills Prov: DADA QUIGLEY 08/05/19 Work/School Note: Work Release Form Date Seen in the Emergency Department: Aug 05, 2019 Return to Work: Aug 07, 2019 Restrictions: No Restrictions DADA QUIGLEY Aug 05, 2019 07:46 POS
[2019-08-05 07:58] LABS: BASOPHILS % (AUTO) 0 % (0-10); EOSINOPHILS # (AUTO) 0.1 10^3/uL (0.0-0.3); EOSINOPHILS % (AUTO) 1 % (0-10); HEMATOCRIT 43 % (35-52); HEMOGLOBIN 14.9 G/DL (11.5-16.0); LYMPHOCYTES # (AUTO) 1.3 X 10^3 (1.0-4.0); LYMPHOCYTES % (AUTO) 13 % (12-44); MEAN CORPUSCULAR HEMOGLOBIN 32 PG (25-34); MEAN CORPUSCULAR HGB CONC 35 G/DL (32-36); MEAN CORPUSCULAR VOLUME 91 FL (80-99); MEAN PLATELET VOLUME 9.1 FL (7.4-10.4); MONOCYTES # (AUTO) 0.8 X 10^3 (0.0-1.0); MONOCYTES % (AUTO) 8 % (0-12); NEUTROPHILS # (AUTO) 8.3 X 10^3 (1.8-7.8); NEUTROPHILS % (AUTO) 79 % (42-75); PLATELET COUNT 406 10^3/uL (130-400); RED CELL DISTRIBUTION WIDTH 12.1 % (10.0-14.5); WHITE BLOOD COUNT 10.6 10^3/uL (4.3-11.0)
[2019-08-05 08:00] LABS: BILIRUBIN,URINE NEGATIVE (NEGATIVE); CLARITY,URINE CLOUDY; COLOR,URINE YELLOW; GLUCOSE, URINE (UA) NEGATIVE (NEGATIVE); KETONES,URINE NEGATIVE (NEGATIVE); LEUKOCYTE ESTERASE ,URINE TRACE (NEGATIVE); NITRITE,URINE NEGATIVE (NEGATIVE); PH,URINE 7.5 (5-9); PROTEIN,URINE 1+ (NEGATIVE)
[2019-08-05 08:08] LABS: BACTERIA,URINE TRACE /HPF
[2019-08-05 08:09] LABS: AMORPHOUS SEDIMENT,UR FEW AMOR PHOSPHATE /LPF
[2019-08-05] MEDS ORDERED: cefTRIAXone FOR IV USE 1,000 MG in WATER (STERILE) FOR INJECTION 10 ML IV ONE (08:15)
[2019-08-05 08:16] LABS: ALANINE AMINOTRANSFERASE 15 U/L (0-55); ALBUMIN 4.8 GM/DL (3.2-4.5); ALKALINE PHOSPHATASE 107 U/L (40-136); BILIRUBIN,TOTAL 0.5 MG/DL (0.1-1.0); BUN/CREATININE RATIO 12; CALCIUM 9.5 MG/DL (8.5-10.1); CARBON DIOXIDE 26 MMOL/L (21-32); CHLORIDE 105 MMOL/L (98-107); CREATININE SERUM 0.89 MG/DL (0.60-1.30); GFR ESTIMATED > 60; GLUCOSE 94 MG/DL (70-105); LIPASE 10 U/L (8-78); POTASSIUM 3.7 MMOL/L (3.6-5.0); SODIUM 144 MMOL/L (135-145); TOTAL PROTEIN 7.7 GM/DL (6.4-8.2)
[2019-08-05] MEDS ORDERED: ONDA4TAB11 PO (08:21)
[2019-08-05] MEDS ORDERED: CEFD300C3 PO (08:21)
[2019-08-05 08:32] VITALS: BP 127/88
== END 2019-08-05 08:32 ==
LOC: EDUNIT# 07:03 → ER 07:03
DX: N12 Tubulo-interstitial nephritis, not specified as acute or chronic (principal); J45.909 Unspecified asthma, uncomplicated; F41.9 Anxiety disorder, unspecified; F32.9 Major depressive disorder, single episode, unspecified
CPT/HCPCS: 36415; 80053; 81000; 83690; 84703; 85025; 87077; 87088; 87186; 96361; 96374; 96375

== ENCOUNTER 2020-04-14 18:09 | Emergency (ER) | payer MEDICAID ==
[~2020-04-14] VITALS: Ht 162.5 cm; Wt 62.7 kg
[~2020-04-14 18:09] MED LIST changes: +CEFD300C3 PO; +ONDA4TAB11 PO
[2020-04-14] MEDS ORDERED: CEPHALEXIN 250 MG (KEFLEX) CAP PO ONE (18:15)
[2020-04-14] MEDS ORDERED: CEPH500T PO (18:18)
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
[2020-04-14 18:21] VITALS: BP 135/80
[2020-04-14] MEDS ORDERED: MUPIROCIN 2% OINT 22 GM (BACTROBAN) TUBE TOP SCH (21:00)
== END 2020-04-14 18:26 | disposition home or self-care (01) ==
LOC: EDUNIT# 18:09 → ER 18:10
DX: T25.222A Burn of second degree of left foot, initial encounter (principal); L08.9 Local infection of the skin and subcutaneous tissue, unspecified; X58.XXXA Exposure to other specified factors, initial encounter
CPT/HCPCS: 99283

== ENCOUNTER 2021-07-10 09:15 | Emergency (ER) | payer OTHER, MEDICAID ==
[~2021-07-10] VITALS: Ht 162.5 cm; Wt 57.6 kg
[~2021-07-10 09:15] MED LIST changes: +CEPH500T PO; +SERT-413; -SERT50TA9
[2021-07-10] MEDS ORDERED: ONDANSETRON 4 MG (ZOFRAN) ORAL DISSOLVE TAB SL ONE (09:30)
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
--- NOTE | 2021-07-10 10:18 | Diagnostic Imaging Report ---
PROCEDURE: CT thoracic spine without contrast. TECHNIQUE: Multiple axial computerized tomography images were obtained from the base of the thoracic spine to the vertex without intravenous contrast. Auto Exposure Controls were utilized during the CT exam to meet ALARA standards for radiation dose reduction. INDICATION: Midback pain, trauma. COMPARISON: None. FINDINGS: Alignment of the thoracic column is normal. There is no subluxation or fracture. No degeneration or osseous lesion is seen. Central canal and soft tissues are well preserved. IMPRESSION: Negative CT of the thoracic spine. No fracture identified. Dictated by: Dictated on workstation # [id number]
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
[2021-07-10 10:52] VITALS: BP 118/90
== END 2021-07-10 10:52 | disposition home or self-care (01) ==
LOC: EDUNIT# 09:15 → ER 09:17
DX: M54.2 Cervicalgia (principal); M54.6 Pain in thoracic spine; R11.0 Nausea; J45.909 Unspecified asthma, uncomplicated; F41.9 Anxiety disorder, unspecified; F32.9 Major depressive disorder, single episode, unspecified; Z79.899 Other long term (current) drug therapy
CPT/HCPCS: 70450; 72125; 72128

== ENCOUNTER → 2021-12-20 | Outpatient (CLI) | payer MEDICAID ==
[2021-12-20] MEDS: CATHETER FLUSH 10 ML SYR IVP PRN (07:12)
--- NOTE | 2021-12-20 09:54 | Diagnostic Imaging Report ---
INDICATION: Epigastric pain. Patient was administered 5.4 mCi technetium 99m Choletec and imaging over the abdomen was performed. At 45 minutes patient ingested 8 ounces of Ensure and the gallbladder ejection fraction is calculated. Patient denied discomfort during the study. There is homogeneous uptake of activity by the liver with prompt excretion of activity into the gallbladder and common duct. There is normal passage of activity into the small bowel. Gallbladder ejection fraction is normal at 69%. IMPRESSION: Normal HIDA scan and gallbladder ejection fraction. Dictated by: Dictated on workstation # [id number]
== END ==
LOC: CARD 07:00
PROVIDERS: ATTEND Surgery
DX: R10.13 Epigastric pain (principal)
CPT/HCPCS: 78227

== ENCOUNTER 2023-05-30 10:26 | Emergency (ER) | payer SELFPAY ==
[~2023-05-30] VITALS: Ht 162 cm; Wt 72.5 kg
--- NOTE | 2023-05-30 11:15 | ED GU-Female ---
General Chief Complaint: - Reproductive Stated Complaint: STOMACH PAIN Nursing Triage Note: pt presents to ed via pov from home with complaints of bilat flank pain and nausea x 2 days. pt reports she recently finished a macrobid prescription 5 days ago for a uti. Source: patient Exam Limitations: no limitations History of Present Illness Date Seen by Provider: May 30, 2023 Time Seen by Provider: 11:15 Initial Comments 27-year-old female presents to the ER with complaint of bilateral flank pain for the last couple of days, states it was better yesterday, but woke up this morning the pain was much more severe. She was treated for UTI approximately 1 to 2 weeks ago with Macrobid. She states she had flank pain at that time, but the pain went away. She reports mid abdominal pain and nausea, no vomiting. Denies fever, diarrhea, dysuria. Last bowel movement was a couple hours ago. Allergies and Home Medications Allergies Coded Allergies: No Known Drug Allergies (Unverified , 06/21/16) Patient Home Medication List Home Medication List Reviewed: Yes Cefdinir (Cefdinir) 300 Mg Capsule, 300 MG PO BID Prescribed by: DADA QUIGLEY on 08/05/19 08 Cephalexin (Cephalexin) 500 Mg Capsule, 500 MG PO QID Prescribed by: AMERICA MONTOYA on 01/25/182004 Cephalexin (Cephalexin) 500 Mg Tablet, 500 MG PO TID Prescribed by: AMERICA MONTOYA on 04/14/20 181 Nitrofurantoin Monohyd/M-Cryst (Macrobid 100 mg Capsule) 100 Mg Capsule, 1 TAB PO BID Prescribed by: DADA QUIGLEY on 03/28/18 1029 Ondansetron (Ondansetron Odt) 4 Mg Tab.rapdis, 4 MG PO Q6H PRN for NAUSEA/VOMITING Prescribed by: DADA QUGILEY on 08/05/19 0821 Polyethylene Glycol 3350 (Miralax) 17 Gm Powd.pack, 17 GM PO DAILY PRN PRN for C ONSTIPATION-1ST LINE Prescribed by: DADA QUIGLEY on 03/28/18 1029 Sertraline HCl (Sertraline HCl) 50 Mg Tablet, (Reported) Entered as Reported by: JOVITA ROBLES on 01/25/182001 Review of Systems Review of Systems Constitutional: see HPI Past Rvpynct-Tapwug-Urvlhb Hx Patient Social History Tobacco Use?: Yes Tobacco type used: Cigarettes Smoking Status: Current Someday Smoker Substance use?: No Alcohol Use?: Yes Alcohol Frequency: Once in a while Pt feels they are or have been: No Immunizations Up To Date PED Vaccines UTD: No First/Initial COVID19 Vaccinat: DECEMBER 2020 Second COVID19 Vaccination Pablo: DECEMBER 2020 Third COVID19 Vaccination Date: DECEMBER 2020 Seasonal Allergies Seasonal Allergies: No Past Medical History Surgery/Hospitalization HX: c-sec, depression Surgeries: Yes (cyst and mole removal ) Section Respiratory: Yes Asthma Cardiac: No Neurological: No Reproductive Disorders: No Sexually Transmitted Disease: No HIV/AIDS: No Genitourinary: No Gastrointestinal: No Musculoskeletal: No Endocrine: No HEENT: No Cancer: No Psychosocial: Yes Anxiety, Depression Integumentary: No Blood Disorders: No Adverse Reaction/Blood Tranf: No (N/a) Family Medical History No Pertinent Family Hx Physical Exam Vital Signs Vital Signs - First Documented 05/30/23 10:49 Temp 36.9 Pulse 82 Resp 16 B/P (MAP) 136/86 (103) Pulse Ox 97 Capillary Refill : Less Than 3 Seconds Height, Weight, BMI Height: 5'4.00" Weight: 115lbs. 0oz. 52.362634ej; 27.00 BMI Method:Stated General Appearance: WD/WN, no apparent distress Neck: supple, normal inspection Cardiovascular: regular rate, rhythm Respiratory: lungs clear, normal breath sounds, no respiratory distress, no accessory muscle use Gastrointestinal: normal bowel sounds, soft, tenderness (Generalized) Back: CVA tenderness (R), CVA tenderness (L), other (Muscle tenderness bilateral lower back) Extremities: normal range of motion, normal inspection Neurologic/Psychiatric: alert, normal mood/affect Skin: normal color, warm/dry Progress/Results/Core Measures Suspected Sepsis SIRS Temperature: Pulse: 82 Respiratory Rate: 16 Laboratory Tests 05/30/23 12:33: White Blood Count 9.2 Blood Pressure 136 /86 Mean: 103 Laboratory Tests 05/30/23 12:33: Creatinine 1.14, Platelet Count 344, Total Bilirubin 0.7 Results/Orders Lab Results Laboratory Tests Test 05/30/23 10:53 05/30/23 12:33 Range/Units Urine Color YELLOW Urine Clarity CLEAR Urine pH 7.0 5-9 Urine Specific [place] 1.015 L 1.016-1.022 Urine Protein NEGATIVE NEGATIVE Urine Glucose (UA) NEGATIVE NEGATIVE Urine Ketones NEGATIVE NEGATIVE Urine Nitrite NEGATIVE NEGATIVE Urine Bilirubin NEGATIVE NEGATIVE Urine Urobilinogen 0.2 < = 1.0 MG/DL Urine Leukocyte Esterase NEGATIVE NEGATIVE Urine RBC (Auto) TRACE H NEGATIVE Urine RBC RARE /HPF Urine WBC RARE /HPF Urine Squamous Epithelial Cells 0-2 /HPF Urine Crystals NONE /LPF Urine Bacteria NEGATIVE /HPF Urine Casts NONE /LPF Urine Mucus NEGATIVE /LPF Urine Culture Indicated NO White Blood Count 9.2 4.3-11.0 10^3/uL Red Blood Count 4.24 3.80-5.11 10^6/uL Hemoglobin 14.0 11.5-16.0 g/dL Hematocrit 39 35-52 % Mean Corpuscular Volume 93 80-99 fL Mean Corpuscular Hemoglobin 33 25-34 pg Mean Corpuscular Hemoglobin Concent 36 32-36 g/dL Red Cell Distribution Width 11.8 10.0-14.5 % Platelet Count 344 130-400 10^3/uL Mean Platelet Volume 8.9 L 9.0-12.2 fL Immature Granulocyte % (Auto) 0 % Neutrophils (%) (Auto) 70 42-75 % Lymphocytes (%) (Auto) 18 12-44 % Monocytes (%) (Auto) 7 0-12 % Eosinophils (%) (Auto) 4 0-10 % Basophils (%) (Auto) 1 0-10 % Neutrophils # (Auto) 6.4 1.8-7.8 10^3/uL Lymphocytes # (Auto) 1.7 1.0-4.0 10^3/uL Monocytes # (Auto) 0.6 0.0-1.0 10^3/uL Eosinophils # (Auto) 0.4 H 0.0-0.3 10^3/uL Basophils # (Auto) 0.1 0.0-0.1 10^3/uL Immature Granulocyte # (Auto) 0.0 0.0-0.1 10^3/uL Sodium Level 141 135-145 MMOL/L Potassium Level 3.7 3.6-5.0 MMOL/L Chloride Level 106 98-107 MMOL/L Carbon Dioxide Level 24 21-32 MMOL/L Anion Gap 11 5-14 MMOL/L Blood Urea Nitrogen 11 7-18 MG/DL Creatinine 1.14 0.60-1.30 MG/DL Estimat Glomerular Filtration Rate 69 BUN/Creatinine Ratio 10 Glucose Level 84 70-105 MG/DL Calcium Level 9.4 8.5-10.1 MG/DL Corrected Calcium 9.0 8.5-10.1 MG/DL Total Bilirubin 0.7 0.1-1.0 MG/DL Aspartate Amino Transf (AST/SGOT) 19 5-34 U/L Alanine Aminotransferase (ALT/SGPT) 19 0-55 U/L Alkaline Phosphatase 89 40-136 U/L C-Reactive Protein High Sensitivity 2.07 H 0.00-0.50 MG/DL Total Protein 7.2 6.4-8.2 GM/DL Albumin 4.5 3.2-4.5 GM/DL Lipase 6 L 8-78 U/L My Orders Orders - DOUGLAS GREY APRN Ua Culture If Indicated (05/30/23 11:14) Urine Bedside (05/30/23 11:14) Comprehensive Metabolic Panel (05/30/23 11:24) Lipase (05/30/23 11:24) Ed Iv/Invasive Line Start (05/30/23 11:24) Cbc With Automated Diff (05/30/23 11:24) Hs C Reactive Protein (05/30/23 11:24) Ns Iv 1000 Ml (Ns Iv 1000 Ml) (05/30/23 11:45) Ketorolac Injection (Ketorolac Injection (05/30/23 11:45) Ct Abdomen/Pelvis W (05/30/23 13:32) Medications Given in ED Current Medications Medications Dose Ordered Sig/Fredy Route Start Time Stop Time Status Last Admin Dose Admin Iohexol 100 ml ONCE ONCE IV 05/30/23 13:45 05/30/23 14:03 DC 05/30/23 13:43 80 ML Ketorolac Tromethamine 15 mg ONCE ONCE IVP 05/30/23 11:45 05/30/23 11:46 DC 05/30/23 12:28 15 MG Sodium Chloride 100 ml ONCE ONCE IV 05/30/23 13:45 05/30/23 14:03 DC 05/30/23 13:43 80 ML Vital Signs/I&O 05/30/23 05/30/23 10:49 15:06 Temp 36.9 36.9 Pulse 82 80 Resp 16 16 B/P (MAP) 136/86 (103) 125/80 Pulse Ox 97 98 Capillary Refill : Less Than 3 Seconds Blood Pressure Mean: 103 Progress Note : Progress Note Patient seen and evaluated, resting in bed, no acute distress. Based on exam and symptoms, differential diagnosis includes was not limited to pyelonephritis, nephrolithiasis, UTI, musculoskeletal pain. Work-up initiated including CBC, CMP, lipase, CRP, UA, urine . IV fluids, Toradol, Zofran ordered. 1332 Labs reviewed. CBC grossly normal. CMP grossly normal. CRP 2.0. Urinalysis shows trace RBCs, negative for infection. RBCs in urine could be related to recent menstrual cycle. Results discussed with patient. Patient reports she is feeling better after pain medication. Pain likely musculoskeletal. I was going to discharge at this time, patient also agreed to discharge, but when nursing staff went to discharge patient, patient was reluctant to leave. She is concerned that we did not really find a reason for her pain. She states she would feel more comfortable leaving if she had a CT of her abdomen. This has been ordered. 1312 CT reviewed. It shows small left renal cyst and tiny nonobstructing renal stone. No evidence of ureteral stone. Gallbladder and appendix are unremarkable. No other acute abnormality noted. Results discussed with patient. Patient is comfortable with discharge at this time. Discharge instructions and return precautions provided. Diagnostic Imaging Diagonstic Imaging: CT Plain Films/CT/US/NM/MRI: abdomen, pelvis Comments [facility]. [place], [place] NAME: GAURAV ALEJANDRE [facility] REC#: [id number] PT STATUS: DEP ER : 1995 PHYSICIAN: DOUGLAS GREY APRN ADMIT DATE: 05/30/23/ER Signed Date of Exam:05/30/23 CT ABDOMEN/PELVIS W PROCEDURE: CT abdomen and pelvis with contrast. TECHNIQUE: Multiple contiguous axial images were obtained through the abdomen and pelvis after administration of intravenous contrast. Auto Exposure Controls were utilized during the CT exam to meet ALARA standards for radiation dose reduction. All CT scans use one or more of the following dose optimizing techniques: automated exposure control, MA and/or KvP adjustment based on patient size and exam type or iterative reconstruction. INDICATION: Abdominal pain. FINDINGS: The heart size is normal. The lung bases are clear. The liver is normal in size without focal lesions. Gallbladder is unremarkable. There is no biliary ductal dilatation. Spleen is normal. The pancreas and adrenal glands are unremarkable. Stomach is normal. There is a small left renal cyst. There is a questionable punctate nonobstructing left renal calculus. There is no evidence of obstructive uropathy. The aorta is nonaneurysmal. Bowel gas pattern is nonspecific. The appendix is normal. Bladder is normal. There is no pelvic mass, adenopathy or free fluid. Uterus is unremarkable. The osseous structures are unremarkable. IMPRESSION: There appears to be a tiny punctate nonobstructing renal calculus. There is also a small left renal cyst. Unremarkable gallbladder and appendix. No other acute abnormality in the abdomen or pelvis. Dictated by: Dictated on workstation # [id number] Dict: 05/30/23 1436 Trans: 05/30/23 1545 [facility] [id number] Interpreted by: GLORIA MORENO MD Electronically signed by: GLORIA MORENO MD 05/30/23 1545 Departure Impression Primary Impression: Flank pain Disposition: 01 HOME, SELF-CARE Condition: Stable Departure-Patient Inst. Decision time for Depature: 13:12 Referrals: [facility] (PCP/Family) Primary Care Physician Patient Instructions: Flank Pain ED Add. Discharge Instructions: You may take Tylenol or ibuprofen as needed for pain. Make sure you are drinking plenty water. Follow-up with your primary care provider. Return for severe pain, inability to urinate, or any other new, concerning, or worsening symptoms. All discharge instructions reviewed with patient and/or family. Voiced understanding. Copy Copies To 1: [facility]/DOUGLAS MATTHEW APRN May 30, 2023 11:15
[2023-05-30] MEDS ORDERED: KETOROLAC INJ 15 MG/ML VIAL IVP ONE (11:45)
[2023-05-30] MEDS ORDERED: NS IV 1000 ML 1,000 ML IV SCH (11:45)
[2023-05-30 11:55] LABS: BILIRUBIN,URINE NEGATIVE (NEGATIVE); CLARITY,URINE CLEAR; COLOR,URINE YELLOW; GLUCOSE, URINE (UA) NEGATIVE (NEGATIVE); KETONES,URINE NEGATIVE (NEGATIVE); LEUKOCYTE ESTERASE ,URINE NEGATIVE (NEGATIVE); NITRITE,URINE NEGATIVE (NEGATIVE); PROTEIN,URINE NEGATIVE (NEGATIVE); RBC,URINE RARE /HPF
[2023-05-30 11:56] LABS: BACTERIA,URINE NEGATIVE /HPF; SQUAMOUS EPITHELIAL CELL,UR 0-2 /HPF; WBC,URINE RARE /HPF
[2023-05-30 12:35] LABS: BASOPHILS # (AUTO) 0.1 10^3/uL (0.0-0.1); BASOPHILS % (AUTO) 1 % (0-10); EOSINOPHILS # (AUTO) 0.4 10^3/uL (0.0-0.3); EOSINOPHILS % (AUTO) 4 % (0-10); HEMATOCRIT 39 % (35-52); LYMPHOCYTES # (AUTO) 1.7 10^3/uL (1.0-4.0); LYMPHOCYTES % (AUTO) 18 % (12-44); MEAN CORPUSCULAR HEMOGLOBIN 33 pg (25-34); MEAN CORPUSCULAR HGB CONC 36 g/dL (32-36); MEAN CORPUSCULAR VOLUME 93 fL (80-99); MEAN PLATELET VOLUME 8.9 fL (9.0-12.2); MONOCYTES # (AUTO) 0.6 10^3/uL (0.0-1.0); MONOCYTES % (AUTO) 7 % (0-12); NEUTROPHILS # (AUTO) 6.4 10^3/uL (1.8-7.8); NEUTROPHILS % (AUTO) 70 % (42-75); PLATELET COUNT 344 10^3/uL (130-400); WHITE BLOOD COUNT 9.2 10^3/uL (4.3-11.0)
[2023-05-30 12:59] LABS: ALBUMIN 4.5 GM/DL (3.2-4.5); BILIRUBIN,TOTAL 0.7 MG/DL (0.1-1.0); CALCIUM 9.4 MG/DL (8.5-10.1); CREATININE SERUM 1.14 MG/DL (0.60-1.30); POTASSIUM 3.7 MMOL/L (3.6-5.0); TOTAL PROTEIN 7.2 GM/DL (6.4-8.2)
[2023-05-30] MEDS ORDERED: NS 100 ML (IVPB) BAG IV ONE (13:45)
[2023-05-30] MEDS ORDERED: HOLD METFORMIN - RECEIVED CONTRAST 20 ML VIAL IV SCH (13:45)
[2023-05-30] MEDS ORDERED: IOHEXOL 350 MG/ML 100 ML (OMNIPAQUE 350) VIAL IV ONE (13:45)
--- NOTE | 2023-05-30 14:49 | Diagnostic Imaging Report ---
PROCEDURE: CT abdomen and pelvis with contrast. TECHNIQUE: Multiple contiguous axial images were obtained through the abdomen and pelvis after administration of intravenous contrast. Auto Exposure Controls were utilized during the CT exam to meet ALARA standards for radiation dose reduction. All CT scans use one or more of the following dose optimizing techniques: automated exposure control, MA and/or KvP adjustment based on patient size and exam type or iterative reconstruction. INDICATION: Abdominal pain. FINDINGS: The heart size is normal. The lung bases are clear. The liver is normal in size without focal lesions. Gallbladder is unremarkable. There is no biliary ductal dilatation. Spleen is normal. The pancreas and adrenal glands are unremarkable. Stomach is normal. There is a small left renal cyst. There is a questionable punctate nonobstructing left renal calculus. There is no evidence of obstructive uropathy. The aorta is nonaneurysmal. Bowel gas pattern is nonspecific. The appendix is normal. Bladder is normal. There is no pelvic mass, adenopathy or free fluid. Uterus is unremarkable. The osseous structures are unremarkable. IMPRESSION: There appears to be a tiny punctate nonobstructing renal calculus. There is also a small left renal cyst. Unremarkable gallbladder and appendix. No other acute abnormality in the abdomen or pelvis. Dictated by: Dictated on workstation # [id number]
[2023-05-30 15:06] VITALS: BP 125/80
== END 2023-05-30 15:06 | disposition home or self-care (01) ==
LOC: EDUNIT# 10:26 → ER 10:28
DX: N28.1 Cyst of kidney, acquired (principal); N20.0 Calculus of kidney; F17.210 Nicotine dependence, cigarettes, uncomplicated
CPT/HCPCS: 36415; 74177; 80053; 81000; 83690; 84703; 85025; 86141